=== PATIENT | male | born 1940 | race Caucasian/White ===

== ENCOUNTER 2016-10-07 06:10 | Day surgery (SDC) | payer OTHER, BC ==
[2016-09-30 09:33] VITALS: BMI 31.9
[2016-10-07] MEDS: CYCLOPENTOLATE 2% OPHTH SOLN 2 ML BOTTLE ONE ×3 (07:05→07:15)
[2016-10-07] MEDS: TROPICAMIDE 1% OPHTH SOLN 15 ML BOTTLE ONE ×3 (07:05→07:15)
[2016-10-07] MEDS: PHENYLEPHRINE 2.5% OPHTH SOLN 15 ML BOTTLE ONE ×3 (07:05→07:15)
[2016-10-07] MEDS: CIPROFLOXACIN 0.3% EYE DROPS 5 ML BOTTLE ONE ×3 (07:05→07:15)
[2016-10-07] MEDS ORDERED: LIDOCAINE 1% P/F 10 MG/ML VIAL ONE (07:22)
[2016-10-07] MEDS ORDERED: LIDOCAINE HCL 2% JELLY 10 ML CARTRIDGE ONE (07:22)
[2016-10-07] MEDS ORDERED: CARBACHOL 0.01% INTRA-OCULAR 1.5 ML VIAL ONE (07:23)
[2016-10-07] MEDS ORDERED: NEO/POLYMYX B SULF/DEXAMETH OPHTHALMIC 5ML BOTTLE ONE (07:23)
[2016-10-07] MEDS ORDERED: BSS (NA/CA/MG/K) BALANCED SALT SOLUTION OPHTH SOLN 15 ML BOTTLE ONE (07:26)
[2016-10-07] MEDS ORDERED: MIDAZOLAM HCL 2 MG/2 ML SINGLE DOSE VIAL ONE ×2 (07:44→08:08)
[2016-10-07 08:51] VITALS: TEMP 98
[2016-10-07 09:37] VITALS: BP 136/74; PULSE 56
--- NOTE | 2016-10-07 09:41 | OP ---
DATE OF OPERATION: 10/07/2016 OPERATIVE PROCEDURE: Lens phacoemulsification with posterior chamber intraocular lens placement right eye. PREOPERATIVE DIAGNOSIS: Visually significant cataract of right eye. POSTOPERATIVE DIAGNOSIS: Visually significant cataract of right eye. SURGEON: Bernard Carrasquillo M.D. ANESTHESIA: MAC PROCEDURE: The patient was brought to the operating room and placed under monitored anesthesia care by Anesthesia. A drop of tetracaine was then placed over the right eye. The patient was then prepped and draped in the usual sterile manner. A speculum was then placed over the right eye. The eye was then well irrigated with copious amounts of BSS (balanced salt solution). The operating microscope was then moved into position. A paracentesis was performed using a 15 degree blade. At this point 0.5 mL of 1% preservative-free lidocaine was injected into the anterior chamber. Amvisc Plus was then injected into the anterior chamber. A clear corneal incision was then formed using a 2.2 mm keratome. A capsulorrhexis was then performed in a continuous circular fashion beginning with a cystotome and completed with Utrata forceps. Hydrodissection was then performed using BSS on a cannula. The phaco probe was then introduced through the corneal wound and the cataract was removed using the phaco chop technique. Approximately 3 seconds of absolute phaco time was used. The remaining cortex was then removed using irrigation and aspiration with an I/A probe. The capsule was then filled with regular Amvisc and the capsule was noted to be intact. A previously selected foldable posterior chamber intraocular lens was then injected into the capsule through the corneal wound using a lens injector. It was then dialed into position using a Sinskey hook. The Amvisc was then removed using irrigation and aspiration. Miostat was then injected through the paracentesis to constrict the pupil. The paracentesis and corneal wound were then hydrated and noted to be watertight. A drop of Maxitrol was then placed over the eye. The speculum was removed and clear shield was taped over the eye. The patient tolerated the procedure well and there were no surgical complications. The patient was asked to follow up in my office the next day. BERNARD CARRASQUILLO M.D. [id number]
== END 2016-10-07 09:35 | disposition home or self-care (01) ==
LOC: FASU 06:10
PROVIDERS: ATTEND Ophthalmology
PROC: 08RJ3JZ Replacement of Right Lens with Synthetic Substitute, Percutaneous Approach (ICD-10-PCS; principal; 2016-10-07 08:12)
DX: H26.8 Other specified cataract (principal)

== ENCOUNTER 2016-11-25 06:16 | Day surgery (SDC) | payer OTHER, BC ==
[2016-11-20 12:07] VITALS: BMI 31.7
[2016-11-25] MEDS: PHENYLEPHRINE 2.5% OPHTH SOLN 15 ML BOTTLE ONE ×3 (06:55→07:05)
[2016-11-25] MEDS: CIPROFLOXACIN 0.3% EYE DROPS 5 ML BOTTLE ONE ×3 (06:55→07:05)
[2016-11-25] MEDS: CYCLOPENTOLATE 2% OPHTH SOLN 2 ML BOTTLE ONE ×3 (06:55→07:05)
[2016-11-25] MEDS: TROPICAMIDE 1% OPHTH SOLN 15 ML BOTTLE ONE ×3 (06:55→07:05)
[2016-11-25] MEDS ORDERED: TETRACAINE 0.5% OPHTH SOLN 2 ML BOTTLE ONE (07:28)
[2016-11-25] MEDS ORDERED: LIDOCAINE HCL 2% JELLY 10 ML CARTRIDGE ONE (07:29)
[2016-11-25] MEDS ORDERED: BSS (NA/CA/MG/K) BALANCED SALT SOLUTION OPHTH SOLN 15 ML BOTTLE ONE (07:29)
[2016-11-25] MEDS ORDERED: CARBACHOL 0.01% INTRA-OCULAR 1.5 ML VIAL ONE (07:29)
[2016-11-25] MEDS ORDERED: MIDAZOLAM HCL 2 MG/2 ML SINGLE DOSE VIAL ONE (08:06)
[2016-11-25] MEDS ORDERED: ONDANSETRON 4 MG/2 ML VIAL ONE (08:34)
[2016-11-25] MEDS ORDERED: ACETAMINOPHEN 325 MG TABLET (FP) PO PRN (08:50)
[2016-11-25] MEDS ORDERED: oxyCODONE HCL 5 MG TABLET PO PRN (08:50)
--- NOTE | 2016-11-25 11:50 | OP ---
DATE OF OPERATION: 11/25/2016 OPERATIVE PROCEDURE: Lens Phacoemulsification with Posterior Chamber Intraocular Lens Placement Left Eye PREOPERATIVE DIAGNOSIS: Visually Significant Cataract of Left Eye POSTOPERATIVE DIAGNOSIS: Visually Significant Cataract of Left Eye SURGEON: Bernard Carrasquillo M.D. ANESTHESIA: MAC ANESTHESIOLOGIST: PROCEDURE: The patient was brought to the operating room and placed under monitored anesthesia care by Anesthesia. A drop of Tetracaine was then placed over the left eye. The patient was then prepped and draped in the usual sterile manner. A speculum was then placed over the left eye. The eye was then well irrigated with copious amounts of BSS (balanced salt solution). The operating microscope was then moved into position. A paracentesis was performed using a 15 degree blade. At this point 0.5 mL of 1% preservative-free lidocaine was injected into the anterior chamber. Amvisc plus was then injected into the anterior chamber. A clear corneal incision was then formed using a 2.2 mm keratome. A capsulorrhexis was then performed in a continuous circular fashion beginning with a cystotome, completed with an Utratas forceps. Hydrodissection was then performed using BSS on a cannula. The phaco probe was then introduced through the corneal wound and the cataract was removed using the phaco chop technique. Approximately 3 seconds of absolute phaco time was used. The remaining cortex was then removed using irrigation and aspiration with an I/A probe. The capsule was then filled with regular Amvisc and the capsule was noted to be intact. A previously selected foldable posterior chamber intraocular lens was then injected into the capsule through the corneal wound using a lens injector. It was then dialed into position using a Sinskey hook. The Amvisc was then removed using irrigation and aspiration. Miostat was then injected through the paracentesis to constrict the pupil. The paracentesis and corneal wound were then hydrated and noted to be water tight. A drop of Maxitrol was then placed over the eye. The speculum was removed and clear shield was taped over the eye. The patient tolerated the procedure well and there were no surgical complications. The patient was asked to follow up in my office the next day. BERNARD CARRASQUILLO M.D. [id number]/[id number]
[2016-11-25 12:52] VITALS: TEMP 98.2
[2016-11-25 12:55] VITALS: BP 128/74; PULSE 58
== END 2016-11-25 09:25 | disposition home or self-care (01) ==
LOC: FASU 06:16
PROVIDERS: ATTEND Ophthalmology
PROC: 08RK3JZ Replacement of Left Lens with Synthetic Substitute, Percutaneous Approach (ICD-10-PCS; principal; 2016-11-25 08:31)
DX: H26.8 Other specified cataract (principal)

== ENCOUNTER 2017-11-06 10:25 | Emergency (ER) | payer OTHER, BC ==
--- NOTE | 2017-11-06 10:34 | PDOC ---
History of Present Illness - General Chief Complaint: Respiratory Stated Complaint: COUGH Time Seen by Provider: 11/06/17 10:33 - History of Present Illness Initial Comments: 11/06/17 11:11 Chief complaint: Cough History of present illness: Patient being treated by primary physician with moxifloxacin for respiratory illness. On antibiotics since Wednesday. Transient improvement, but cough is worse with difficulty sleeping. Review of systems: No fever, chest pain, shortness of breath, abdominal pain, nausea, vomiting, diarrhea, visual or focal neurologic symptoms, unsteadiness of gait. Remainder systems reviewed and found to be negative Past medical history: Multiple myeloma, chemotherapy including dexamethasone 4 mg weekly. Elevated cholesterol. Social/family history: No smoking alcohol or nonprescription drugs. Active and without disability. Stable family. No family history that is contributory Physical exam: Alert oriented well-developed well-nourished no acute distress cheerful and cooperative Afebrile, vital signs normal including respiratory rate of 18 and unlabored, O2 saturation 100% room air HEENT clear Neck supple without bruit mass or nodes Chest clear to P&A, with full breath sounds throughout bilaterally. No wheezes rales or rhonchi CV regular without murmur rub or gallop pulses full and symmetric no JVD or edema no bruits Abdomen soft nontender without mass or organomegaly Extremities no CCE Skin clear, no rash except for mild facial rosacea, adequate turgor and wet mucous membranes Neurological no deficits Impression: Probable post-bronchitis inflammation, rule out pneumonia Plan: X-ray and further management depending on results Past History - Past Medical History Allergies/Adverse Reactions: Allergies Allergy/AdvReac Type Severity Reaction Status Date / Time No Known Drug Allergies Allergy Verified 11/06/17 10:26 Home Medications: Ambulatory Orders Allopurinol 300 mg PO DAILY 09/30/16 Aspirin [ASA -] 325 mg PO DAILY 09/30/16 Cholecalciferol (Vitamin D3) [Vitamin D3] 2,000 unit PO DAILY 09/30/16 Dexamethasone [Decadron -] 4 mg PO WEEKLY 09/30/16 Hydrochlorothiazide [Hctz -] 12.5 mg PO DAILY 09/30/16 Ixazomib Citrate [Ninlaro] 4 mg PO ASDIR 09/30/16 Lenalidomide [Revlimid] 10 mg PO ASDIR 09/30/16 Metoprolol Succinate [Toprol XL -] 25 mg PO DAILY 09/30/16 Multivit-Min/FA/Lycopen/Lutein [Centrum Silver Tablet] 1 each PO DAILY 09/30/16 Rosuvastatin Calcium [Crestor] 5 mg PO HS 09/30/16 Ubidecarenone/Vit E Acet [Co Q-10 100 mg Softgel] 1 each PO DAILY 09/30/16 Valacyclovir HCl [Valtrex -] 500 mg PO DAILY 09/30/16 Ramipril 5 mg PO DAILY 11/20/16 Guaifenesin AC [Robitussin-AC] 1 - 2 tsp PO Q4HWA PRN #120 ml MDD 8 11/06/17 Hydrochlorothiazide [Hctz -] 12.5 mg PO DAILY 11/06/17 Ranitidine HCl [Zantac] 150 mg PO DAILY 11/06/17 Anemia: Yes (DUE TO CHEMO) Asthma: No Cancer: Yes (MULTIPLE MYELOMA) Cardiac Disorders: No (BICUSPID AORTA,BEING FOLLOWED) CVA: No COPD: No CHF: No Dementia: No Diabetes: No GI Disorders: Yes (GERD) Disorders: No HTN: Yes Hypercholesterolemia: Yes Liver Disease: No Seizures: No Thyroid Disease: No - Surgical History Abdominal Surgery: Yes (BILATERAL INGUINAL HERNIA REPAIR) Appendectomy: Yes Cardiac Surgery: No Cholecystectomy: No Lung Surgery: No Neurologic Surgery: No Orthopedic Surgery: Yes (2007 LEFT SHOULDER SX) - Suicide/Smoking/Psychosocial Hx Smoking History: Never smoked Have you smoked in the past 12 months: No Number of Cigarettes Smoked Daily: 0 Hx Alcohol Use: No Drug/Substance Use Hx: No (nn) Substance Use Type: None Hx Substance Use Treatment: No Medical Decision Making - Medical Decision Making 11/06/17 11:14 X-ray shows no acute infiltrate, congestion, effusions, or other consolidations. In view of the patient's normal respiratory rate, adequate O2 saturation, and mild symptoms, instructed to continue antibiotics until finished, utilize prescribed cough suppressant as needed, and recheck if symptoms worsen. Patient discharged fully ambulatory and in no distress respiratory or otherwise with his to follow-up as directed *DC/Admit/Observation/Transfer Diagnosis at time of Disposition: Viral bronchitis - Discharge Dispostion Disposition: HOME Condition at time of disposition: Stable Admit: No - Prescriptions Prescriptions: Guaifenesin AC [Robitussin-AC] 1 - 2 tsp PO Q4HWA PRN #120 ml MDD 8 PRN Reason: Cough - Referrals Referrals: Bernie Drake MD [Primary Care Provider] - 3 days - Patient Instructions Printed Discharge Instructions: DI for Acute Bronchitis Additional Instructions: Rest, fluids, finish prescribed antibiotics. Cough syrup for congestion and comfort. Return to ER or see primary physician if condition worsens, especially if there is fever, or increasing shortness of breath. - Post Discharge Activity
[2017-11-06 10:36] VITALS: BP 145/67; PULSE 74; TEMP 98.1; BMI 30.7
== END 2017-11-06 11:10 | disposition home or self-care (01) ==
LOC: FER 10:25
DX: J20.9 Acute bronchitis, unspecified (principal); B97.89 Other viral agents as the cause of diseases classified elsewhere; C90.00 Multiple myeloma not having achieved remission; Z92.21 Personal history of antineoplastic chemotherapy; E78.00 Pure hypercholesterolemia, unspecified; D64.81 Anemia due to antineoplastic chemotherapy; Q23.1 Congenital insufficiency of aortic valve; K21.9 Gastro-esophageal reflux disease without esophagitis; I10 Essential (primary) hypertension
CPT/HCPCS: 71046-TC-FY; 99283-25

== ENCOUNTER 2019-02-28 07:04 | Day surgery (SDC) | payer OTHER, BC ==
[2019-02-28] MEDS ORDERED: RANITIDINE IVPB ONE ×2 (10:00→11:45)
[2019-02-28] MEDS ORDERED: [UNRECOGNIZED DRUG - OTHER] IVPB ONE (10:00)
[2019-02-28] MEDS ORDERED: ACETAMINOPHEN 325 MG TABLET (FP) PO ONE (10:00)
[2019-02-28] MEDS ORDERED: DEXAMETHASONE SODIUM PHOSPHATE IVPB ONE ×2 (10:00→11:45)
[2019-02-28 10:04] LABS: BASO % 1.7 % (0-2.0); EOS % 0.1 % (0-4.5); HEMATOCRIT 39.6 % (35.4-49); HEMOGLOBIN 13.6 GM/dL (11.7-16.9); MCH 35.8 pg (25.7-33.7); MCHC 34.3 g/dl (32.0-35.9); MEAN CELL VOLUME 104.4 fl (80-96); MEAN PLT VOLUME 7.8 fl (7.5-11.1); MONO % 6.1 % (3.8-10.2); NEUT % 79.1 % (42.8-82.8); PLATELET COUNT 106 K/MM3 (134-434); RBC 3.79 M/mm3 (4.00-5.60); WHITE BLOOD COUNT 4.2 K/mm3 (4.0-10.0)
[2019-02-28] MEDS ORDERED: ELOTUZUMAB IVPB ONE (10:30)
[2019-02-28] MEDS ORDERED: SODIUM CHLORIDE IVPB ONE (10:30)
[2019-02-28 10:31] LABS: BILIRUBIN,DIRECT 0.3 mg/dL (0.0-0.2); BILIRUBIN,TOTAL 0.8 mg/dL (0.2-1); CALCIUM 9.1 mg/dL (8.5-10.1); CREATININE 1.3 mg/dL (0.55-1.3); MAGNESIUM 2.2 mg/dL (1.8-2.4); TOT PROT 6.4 g/dl (6.4-8.2)
[2019-02-28] MEDS ORDERED: [UNRECOGNIZED DRUG - OTHER] IVPB ONE (11:45)
[2019-02-28 18:52] VITALS: TEMP 97.3
[2019-02-28 19:07] VITALS: BP 138/63; PULSE 69
[2019-03-01 14:08] LABS: FREE KAPPA,SERUM 34.8 mg/L (3.3-19.4)
== END 2019-02-28 19:07 | disposition home or self-care (01) ==
LOC: JONCCHEMO 07:04 → J7W 11:55 → JONCCHEMO 19:07
PROVIDERS: ATTEND Internal Medicine Hematology & Oncology
DX: Z51.11 Encounter for antineoplastic chemotherapy (principal); C90.00 Multiple myeloma not having achieved remission
CPT/HCPCS: 36415; 80048; 80076; 82784; 83735; 83883; 85025; 86160; 86162; 86850; 86900; 86901; 96367; 96375; 96413; 96415; J9176

== ENCOUNTER 2019-03-07 05:55 | Day surgery (SDC) | payer OTHER, BC ==
[2019-03-07 08:46] LABS: BASO % 0.4 % (0-2.0); EOS % 0.1 % (0-4.5); HEMOGLOBIN 13.8 GM/dL (11.7-16.9); LYMPH % 6.7 % (8-40); MCH 35.9 pg (25.7-33.7); MCHC 34.6 g/dl (32.0-35.9); MEAN CELL VOLUME 103.7 fl (80-96); MEAN PLT VOLUME 7.7 fl (7.5-11.1); MONO % 3.3 % (3.8-10.2); NEUT % 89.5 % (42.8-82.8); PLATELET COUNT 112 K/MM3 (134-434); RBC 3.85 M/mm3 (4.00-5.60); WHITE BLOOD COUNT 4.7 K/mm3 (4.0-10.0)
[2019-03-07 09:06] LABS: ALBUMIN 3.9 g/dl (3.4-5.0); BILIRUBIN,DIRECT 0.3 mg/dL (0.0-0.2); BILIRUBIN,TOTAL 0.9 mg/dL (0.2-1); CALCIUM 8.8 mg/dL (8.5-10.1); CREATININE 1.3 mg/dL (0.55-1.3); MAGNESIUM 2.1 mg/dL (1.8-2.4); POTASSIUM 4.3 mmol/L (3.5-5.1); TOT PROT 6.4 g/dl (6.4-8.2); URIC ACID 5.4 mg/dL (2.6-7.2)
[2019-03-07] MEDS ORDERED: ACETAMINOPHEN 325 MG TABLET (FP) PO ONE (10:00)
[2019-03-07] MEDS ORDERED: [UNRECOGNIZED DRUG - OTHER] IVPB ONE (10:00)
[2019-03-07] MEDS ORDERED: DEXAMETHASONE SODIUM PHOSPHATE IVPB ONE (10:00)
[2019-03-07] MEDS ORDERED: DIPHENHYDRAMINE IVPB ONE (10:00)
[2019-03-07] MEDS ORDERED: INSULIN (NOVOLOG) ASPART 100 UNITS/ML 10ML VIAL SQ ONE (10:15)
[2019-03-07] MEDS ORDERED: ELOTUZUMAB IVPB ONE (10:30)
[2019-03-07] MEDS ORDERED: SODIUM CHLORIDE IVPB ONE (10:30)
[2019-03-07] MEDS ORDERED: Insulin (LOG) Aspart 100 UNITS/ML VIAL SQ ONE (14:05)
[2019-03-07 15:59] VITALS: BP 126/53; PULSE 71; TEMP 98.2
== END 2019-03-07 14:00 | disposition home or self-care (01) ==
LOC: JONCCHEMO 05:55 → J7W 10:13 → JONCCHEMO 14:00
PROVIDERS: ATTEND Internal Medicine Hematology & Oncology
DX: Z51.11 Encounter for antineoplastic chemotherapy (principal); C90.00 Multiple myeloma not having achieved remission
CPT/HCPCS: 36415; 80048; 80076; 82962; 83615; 83735; 84550; 85025; 96367; 96375; 96413; 96415; J9176

== ENCOUNTER 2019-03-14 07:47 | Day surgery (SDC) | payer OTHER, BC ==
[2019-03-14 08:31] LABS: BASO % 1.3 % (0-2.0); HEMATOCRIT 36.9 % (35.4-49); HEMOGLOBIN 12.8 GM/dL (11.7-16.9); LYMPH % 14.8 % (8-40); MCH 35.9 pg (25.7-33.7); MCHC 34.7 g/dl (32.0-35.9); MEAN CELL VOLUME 103.6 fl (80-96); MEAN PLT VOLUME 7.2 fl (7.5-11.1); MONO % 12.8 % (3.8-10.2); NEUT % 66.1 % (42.8-82.8); PLATELET COUNT 72 K/MM3 (134-434); RBC 3.56 M/mm3 (4.00-5.60); RDW 15.2 % (11.9-15.9); WHITE BLOOD COUNT 2.5 K/mm3 (4.0-10.0)
[2019-03-14 09:05] LABS: ALBUMIN 3.6 g/dl (3.4-5.0); BILIRUBIN,DIRECT 0.2 mg/dL (0.0-0.2); BILIRUBIN,TOTAL 1.3 mg/dL (0.2-1); BLOOD UREA NITROGEN 17.9 mg/dL (7-18); CALCIUM 8.4 mg/dL (8.5-10.1); CREATININE 1.1 mg/dL (0.55-1.3); MAGNESIUM 2.1 mg/dL (1.8-2.4); POTASSIUM 3.7 mmol/L (3.5-5.1); TOT PROT 5.7 g/dl (6.4-8.2)
[2019-03-14] MEDS ORDERED: INSULIN SLIDING SCALE (NOVOLOG) 1 VIAL SQ PRN (09:16)
[2019-03-14] MEDS ORDERED: ACETAMINOPHEN 325 MG TABLET (FP) PO ONE (09:30)
[2019-03-14] MEDS ORDERED: DIPHENHYDRAMINE IVPB ONE (09:30)
[2019-03-14] MEDS ORDERED: [UNRECOGNIZED DRUG - OTHER] IVPB ONE (09:30)
[2019-03-14] MEDS ORDERED: DEXAMETHASONE SODIUM PHOSPHATE IVPB ONE (09:30)
[2019-03-14] MEDS ORDERED: ELOTUZUMAB IV ONE (10:00)
[2019-03-14] MEDS ORDERED: SODIUM CHLORIDE IV ONE (10:00)
[2019-03-14] MEDS ORDERED: SODIUM CHLORIDE 1,000 ML IV ONE (12:00)
[2019-03-14] MEDS ORDERED: methylPREDNISolone NA SUCC 125 MG/2 ML VIAL IVPUSH ONE ×2 (12:00→14:00)
[2019-03-14] MEDS ORDERED: FAMOTIDINE 20 MG/50 ML IVPB 20 MG/50 ML MG IVPB ONE (12:00)
[2019-03-14] MEDS ORDERED: SODIUM CHLORIDE 1,000 ML IV SCH (14:00)
[2019-03-14] MEDS ORDERED: EPINEPHrine 1:1,000 - 30 MG/30 ML VIAL SQ ONE (14:00)
[2019-03-14] MEDS ORDERED: SODIUM CHLORIDE 500 ML IV SCH (15:00)
[2019-03-14 16:46] VITALS: BP 148/72; PULSE 67; TEMP 98
== END 2019-03-14 15:15 | disposition home or self-care (01) ==
LOC: JONCCHEMO 07:47 → J7W 08:50 → JONCCHEMO 15:15
PROVIDERS: ATTEND Internal Medicine Hematology & Oncology
DX: Z51.11 Encounter for antineoplastic chemotherapy (principal); C90.00 Multiple myeloma not having achieved remission
CPT/HCPCS: 36415; 80048; 80076; 82962; 83615; 83735; 84550; 85025; 96367; 96375; 96413; J7030; J9176

== ENCOUNTER 2019-03-21 07:17 | Day surgery (SDC) | payer OTHER, BC | END 2019-03-21 16:00 | disposition home or self-care (01) | LOC: JONCCHEMO 07:17 → J7W 10:19 → JONCCHEMO 16:00 ==

== ENCOUNTER 2019-03-22 07:13 | Day surgery (SDC) | payer OTHER, BC ==
[2019-03-22] MEDS ORDERED: TBO-FILGRASTIM 480 MCG/0.8 ML DISP.SYRIN SQ ONE (15:15)
[2019-03-22 15:37] VITALS: BP 116/50; PULSE 52; TEMP 98.2
== END 2019-03-22 15:30 | disposition home or self-care (01) ==
LOC: JONCCHEMO 07:13 → J7W 14:15 → JONCCHEMO 15:30
PROVIDERS: ATTEND Internal Medicine Hematology & Oncology
PROC: 3E013GC Introduction of Other Therapeutic Substance into Subcutaneous Tissue, Percutaneous Approach (ICD-10-PCS; principal; 2019-03-22)
DX: C90.00 Multiple myeloma not having achieved remission (principal); D70.9 Neutropenia, unspecified; Z76.89 Persons encountering health services in other specified circumstances
CPT/HCPCS: 96372; J1447

== ENCOUNTER 2019-03-23 07:41 | Day surgery (SDC) | payer OTHER, BC ==
[2019-03-23] MEDS ORDERED: TBO-FILGRASTIM 480 MCG/0.8 ML DISP.SYRIN SQ ONE (08:45)
[2019-03-23 16:08] VITALS: BP 146/61; PULSE 66; TEMP 98.4
== END 2019-03-23 10:00 | disposition home or self-care (01) ==
LOC: JONCCHEMO 07:41 → J7W 09:50 → JONCCHEMO 10:00
PROVIDERS: ATTEND Internal Medicine Hematology & Oncology
PROC: 3E013GC Introduction of Other Therapeutic Substance into Subcutaneous Tissue, Percutaneous Approach (ICD-10-PCS; principal; 2019-03-23)
DX: C90.00 Multiple myeloma not having achieved remission (principal); D70.9 Neutropenia, unspecified; Z76.89 Persons encountering health services in other specified circumstances
CPT/HCPCS: 96372; J1447

== ENCOUNTER 2019-03-28 07:19 | Day surgery (SDC) | payer OTHER, BC ==
[2019-03-28 08:24] LABS: BASO % 0.7 % (0-2.0); EOS % 0.3 % (0-4.5); HEMATOCRIT 39.4 % (35.4-49); HEMOGLOBIN 13.5 GM/dL (11.7-16.9); LYMPH % 14.3 % (8-40); MCH 35.6 pg (25.7-33.7); MCHC 34.2 g/dl (32.0-35.9); MEAN CELL VOLUME 104.2 fl (80-96); MEAN PLT VOLUME 7.2 fl (7.5-11.1); MONO % 2.2 % (3.8-10.2); NEUT % 82.5 % (42.8-82.8); PLATELET COUNT 92 K/MM3 (134-434); RBC 3.78 M/mm3 (4.00-5.60); RDW 14.8 % (11.9-15.9)
[2019-03-28 08:28] LABS: WHITE BLOOD COUNT 1.9 K/mm3 (4.0-10.0)
[2019-03-28 08:57] LABS: ALBUMIN 3.9 g/dl (3.4-5.0); BILIRUBIN,DIRECT 0.2 mg/dL (0.0-0.2); BILIRUBIN,TOTAL 0.8 mg/dL (0.2-1); BLOOD UREA NITROGEN 19.8 mg/dL (7-18); CALCIUM 8.8 mg/dL (8.5-10.1); CREATININE 1.3 mg/dL (0.55-1.3); POTASSIUM 4.1 mmol/L (3.5-5.1); TOT PROT 6.3 g/dl (6.4-8.2); URIC ACID 5.6 mg/dL (2.6-7.2)
[2019-03-28] MEDS ORDERED: Insulin (LOG) Aspart 100 UNITS/ML VIAL SQ ONE ×2 (09:21→14:50)
[2019-03-28] MEDS ORDERED: DIPHENHYDRAMINE IVPB ONE (09:30)
[2019-03-28] MEDS ORDERED: DEXAMETHASONE SODIUM PHOSPHATE IVPB ONE (09:30)
[2019-03-28] MEDS ORDERED: ACETAMINOPHEN 325 MG TABLET (FP) PO ONE (09:30)
[2019-03-28] MEDS ORDERED: [UNRECOGNIZED DRUG - OTHER] IVPB ONE (09:30)
[2019-03-28] MEDS ORDERED: SODIUM CHLORIDE IVPB ONE (10:00)
[2019-03-28] MEDS ORDERED: ELOTUZUMAB IVPB ONE (10:00)
[2019-03-28 15:04] LABS: ANISOCYTOSIS 1+; MACROCYTOSIS 1+; OVALOCYTE 1+; PLATELET ESTIMATE DECREASED
[2019-03-28 16:26] VITALS: BP 137/64; PULSE 79; TEMP 98.3
[2019-03-29] MEDS ORDERED: TBO-FILGRASTIM 480 MCG/0.8 ML DISP.SYRIN SQ ONE (10:00)
[2019-03-30] MEDS ORDERED: TBO-FILGRASTIM 480 MCG/0.8 ML DISP.SYRIN SQ ONE (10:00)
== END 2019-03-28 15:00 | disposition home or self-care (01) ==
LOC: JONCCHEMO 07:19 → J7W 09:09 → JONCCHEMO 15:00
PROVIDERS: ATTEND Internal Medicine Hematology & Oncology
DX: Z51.11 Encounter for antineoplastic chemotherapy (principal); C90.00 Multiple myeloma not having achieved remission; D70.9 Neutropenia, unspecified
CPT/HCPCS: 36415; 80048; 80076; 82962; 83615; 83735; 84550; 85025; 96367; 96375; 96413; 96415; J9176

== ENCOUNTER 2019-03-29 10:05 | Day surgery (SDC) | payer OTHER, BC ==
[2019-03-29] MEDS ORDERED: TBO-FILGRASTIM 480 MCG/0.8 ML DISP.SYRIN SQ ONE (13:00)
[2019-03-29 18:12] VITALS: BP 137/61; PULSE 62; TEMP 98
== END 2019-03-29 14:40 | disposition home or self-care (01) ==
LOC: JONCNONCHE 10:05 → J7W 14:25 → JONCNONCHE 14:40
PROVIDERS: ATTEND Internal Medicine Hematology & Oncology
PROC: 3E013GC Introduction of Other Therapeutic Substance into Subcutaneous Tissue, Percutaneous Approach (ICD-10-PCS; principal; 2019-03-29)
DX: C90.00 Multiple myeloma not having achieved remission (principal); D70.9 Neutropenia, unspecified; Z76.89 Persons encountering health services in other specified circumstances
CPT/HCPCS: 96372; J1447

== ENCOUNTER 2019-03-30 07:02 | Day surgery (SDC) | payer OTHER, BC ==
[2019-03-30] MEDS ORDERED: TBO-FILGRASTIM 480 MCG/0.8 ML DISP.SYRIN SQ ONE (09:00)
[2019-03-30 12:26] VITALS: BP 157/67; PULSE 60; TEMP 98.1
== END 2019-03-30 10:30 | disposition home or self-care (01) ==
LOC: JONCNONCHE 07:02 → J7W 10:07 → JONCNONCHE 10:30
PROVIDERS: ATTEND Internal Medicine Hematology & Oncology
PROC: 3E033GC Introduction of Other Therapeutic Substance into Peripheral Vein, Percutaneous Approach (ICD-10-PCS; principal; 2019-03-30)
DX: C90.00 Multiple myeloma not having achieved remission (principal); Z76.89 Persons encountering health services in other specified circumstances
CPT/HCPCS: 96372; J1447

== ENCOUNTER 2019-04-04 07:11 | Day surgery (SDC) | payer OTHER, BC ==
[2019-04-04 08:32] LABS: BASO % 1.4 % (0-2.0); EOS % 4.2 % (0-4.5); LYMPH % 9.8 % (8-40); MCH 35.9 pg (25.7-33.7); MCHC 34.2 g/dl (32.0-35.9); MEAN CELL VOLUME 104.9 fl (80-96); MEAN PLT VOLUME 7.8 fl (7.5-11.1); MONO % 10.1 % (3.8-10.2); NEUT % 74.5 % (42.8-82.8); PLATELET COUNT 94 K/MM3 (134-434); RBC 3.63 M/mm3 (4.00-5.60); RDW 14.9 % (11.9-15.9); WHITE BLOOD COUNT 2.6 K/mm3 (4.0-10.0)
[2019-04-04 09:02] LABS: ALBUMIN 3.6 g/dl (3.4-5.0); BILIRUBIN,DIRECT 0.2 mg/dL (0.0-0.2); BILIRUBIN,TOTAL 0.7 mg/dL (0.2-1); CALCIUM 8.4 mg/dL (8.5-10.1); CREATININE 1.2 mg/dL (0.55-1.3); MAGNESIUM 2.2 mg/dL (1.8-2.4); POTASSIUM 3.5 mmol/L (3.5-5.1); TOT PROT 5.6 g/dl (6.4-8.2)
[2019-04-04] MEDS ORDERED: DIPHENHYDRAMINE IVPB ONE ×2 (09:30→10:15)
[2019-04-04] MEDS ORDERED: DEXAMETHASONE SODIUM PHOSPHATE IVPB ONE ×2 (09:30→10:15)
[2019-04-04] MEDS ORDERED: [UNRECOGNIZED DRUG - OTHER] IVPB ONE ×2 (09:30→10:15)
[2019-04-04] MEDS ORDERED: ACETAMINOPHEN 325 MG TABLET (FP) PO ONE ×2 (09:30)
[2019-04-04] MEDS ORDERED: SODIUM CHLORIDE IVPB ONE ×2 (10:00→10:30)
[2019-04-04] MEDS ORDERED: ELOTUZUMAB IVPB ONE ×2 (10:00→10:30)
[2019-04-04] MEDS ORDERED: INSULIN (NOVOLOG) ASPART 100 UNITS/ML 10ML VIAL SQ ONE ×2 (10:24→15:30)
[2019-04-04] MEDS ORDERED: ACETAMINOPHEN 325 MG TABLET (FP) ONE (11:36)
[2019-04-04 17:03] VITALS: BP 132/63; PULSE 76
[2019-04-04 17:07] VITALS: TEMP 98
== END 2019-04-04 15:45 | disposition home or self-care (01) ==
LOC: JONCCHEMO 07:11 → J7W 10:14 → JONCCHEMO 15:45
PROVIDERS: ATTEND Internal Medicine Hematology & Oncology
DX: Z51.11 Encounter for antineoplastic chemotherapy (principal); C90.00 Multiple myeloma not having achieved remission
CPT/HCPCS: 36415; 80048; 80076; 82962; 83735; 85025; 96367; 96375; 96413; 96415; J9176

== ENCOUNTER 2019-04-11 07:14 | Day surgery (SDC) | payer OTHER, BC ==
[2019-04-11 08:50] LABS: BASO % 0.5 % (0-2.0); EOS % 7.1 % (0-4.5); HEMATOCRIT 36.5 % (35.4-49); HEMOGLOBIN 12.3 GM/dL (11.7-16.9); LYMPH % 10.7 % (8-40); MCH 35.5 pg (25.7-33.7); MCHC 33.8 g/dl (32.0-35.9); MEAN CELL VOLUME 104.8 fl (80-96); MEAN PLT VOLUME 7.5 fl (7.5-11.1); MONO % 13.7 % (3.8-10.2); PLATELET COUNT 120 K/MM3 (134-434); RBC 3.48 M/mm3 (4.00-5.60); WHITE BLOOD COUNT 2.8 K/mm3 (4.0-10.0)
[2019-04-11 09:18] LABS: ALBUMIN 3.5 g/dl (3.4-5.0); BILIRUBIN,DIRECT 0.2 mg/dL (0.0-0.2); BILIRUBIN,TOTAL 0.7 mg/dL (0.2-1); BLOOD UREA NITROGEN 16.8 mg/dL (7-18); CALCIUM 8.6 mg/dL (8.5-10.1); CREATININE 1.1 mg/dL (0.55-1.3); POTASSIUM 3.8 mmol/L (3.5-5.1); TOT PROT 5.5 g/dl (6.4-8.2); URIC ACID 5.2 mg/dL (2.6-7.2)
[2019-04-11] MEDS ORDERED: DIPHENHYDRAMINE IVPB ONE (10:00)
[2019-04-11] MEDS ORDERED: [UNRECOGNIZED DRUG - OTHER] IVPB ONE (10:00)
[2019-04-11] MEDS ORDERED: ACETAMINOPHEN 325 MG TABLET (FP) PO ONE (10:00)
[2019-04-11] MEDS ORDERED: DEXAMETHASONE SODIUM PHOSPHATE IVPB ONE (10:00)
[2019-04-11] MEDS ORDERED: SODIUM CHLORIDE IVPB ONE (10:30)
[2019-04-11] MEDS ORDERED: ELOTUZUMAB IVPB ONE (10:30)
[2019-04-11 16:55] VITALS: BP 149/50; PULSE 64; TEMP 97.9
[2019-04-11] MEDS ORDERED: PORTA CATH FLUSH 10 ML IVPUSH ONE (16:55)
== END 2019-04-11 14:30 | disposition home or self-care (01) ==
LOC: JONCCHEMO 07:14 → J7W 09:27 → JONCCHEMO 14:30
PROVIDERS: ATTEND Internal Medicine Hematology & Oncology
PROC: 3E04305 Introduction of Other Antineoplastic into Central Vein, Percutaneous Approach (ICD-10-PCS; principal; 2019-04-11)
PROC: 3E043GC Introduction of Other Therapeutic Substance into Central Vein, Percutaneous Approach (ICD-10-PCS; 2019-04-11)
DX: Z51.11 Encounter for antineoplastic chemotherapy (principal); C90.00 Multiple myeloma not having achieved remission
CPT/HCPCS: 36415; 80048; 80053; 80076; 83615; 83735; 84550; 85025; 96367; 96375; 96413; 96415; J9176

== ENCOUNTER 2019-04-18 05:47 | Day surgery (SDC) | payer OTHER, BC | END 2019-04-18 14:00 | disposition home or self-care (01) | LOC: JONCCHEMO 05:47 → J7W 09:14 → JONCCHEMO 14:00 ==

== ENCOUNTER 2019-04-25 06:05 | Day surgery (SDC) | payer OTHER, BC ==
[2019-04-25 08:57] LABS: BASO % 1.6 % (0-2.0); EOS % 2.9 % (0-4.5); HEMATOCRIT 38.3 % (35.4-49); HEMOGLOBIN 13.1 GM/dL (11.7-16.9); LYMPH % 11.4 % (8-40); MCH 35.6 pg (25.7-33.7); MCHC 34.2 g/dl (32.0-35.9); MEAN CELL VOLUME 104.1 fl (80-96); MONO % 10.5 % (3.8-10.2); NEUT % 73.6 % (42.8-82.8); PLATELET COUNT 118 K/MM3 (134-434); RBC 3.68 M/mm3 (4.00-5.60); RDW 15.4 % (11.9-15.9); WHITE BLOOD COUNT 3.1 K/mm3 (4.0-10.0)
[2019-04-25 09:29] LABS: ALBUMIN 3.7 g/dl (3.4-5.0); BILIRUBIN,DIRECT 0.2 mg/dL (0.0-0.2); BILIRUBIN,TOTAL 0.7 mg/dL (0.2-1); BLOOD UREA NITROGEN 19.9 mg/dL (7-18); CALCIUM 8.9 mg/dL (8.5-10.1); CREATININE 1.2 mg/dL (0.55-1.3); MAGNESIUM 2.2 mg/dL (1.8-2.4); POTASSIUM 4.2 mmol/L (3.5-5.1); TOT PROT 5.9 g/dl (6.4-8.2); URIC ACID 5.3 mg/dL (2.6-7.2)
[2019-04-25] MEDS ORDERED: DEXAMETHASONE SODIUM PHOSPHATE IVPB ONE (10:00)
[2019-04-25] MEDS ORDERED: [UNRECOGNIZED DRUG - OTHER] IVPB ONE (10:00)
[2019-04-25] MEDS ORDERED: ACETAMINOPHEN 325 MG TABLET (FP) PO ONE (10:00)
[2019-04-25] MEDS ORDERED: DIPHENHYDRAMINE IVPB ONE (10:00)
[2019-04-25 10:21] VITALS: TEMP 98.8
[2019-04-25] MEDS ORDERED: DEXAMETHASONE SOD PHOSPHATE 10 MG/1 ML VIAL IVPB ONE (10:30)
[2019-04-25] MEDS ORDERED: SODIUM CHLORIDE IVPB ONE (10:30)
[2019-04-25] MEDS ORDERED: ELOTUZUMAB IVPB ONE (10:30)
[2019-04-25 16:12] VITALS: BP 133/82; PULSE 80
== END 2019-04-25 16:14 | disposition home or self-care (01) ==
LOC: JONCCHEMO 06:05 → J7W 09:43 → JONCCHEMO 16:14
PROVIDERS: ATTEND Internal Medicine Hematology & Oncology
DX: Z51.11 Encounter for antineoplastic chemotherapy (principal); C90.00 Multiple myeloma not having achieved remission
CPT/HCPCS: 36415; 80048; 80076; 82962; 83615; 83735; 84550; 85025; 96367; 96375; 96413; 96415; J9176

== ENCOUNTER 2019-05-22 06:53 | Day surgery (SDC) | payer OTHER, BC ==
[2019-05-22 09:18] LABS: BASO % 1.5 % (0-2.0); EOS % 3.4 % (0-4.5); HEMATOCRIT 38.1 % (35.4-49); HEMOGLOBIN 13.1 GM/dL (11.7-16.9); LYMPH % 11.4 % (8-40); MCH 35.6 pg (25.7-33.7); MCHC 34.4 g/dl (32.0-35.9); MEAN CELL VOLUME 103.5 fl (80-96); MEAN PLT VOLUME 7.7 fl (7.5-11.1); NEUT % 73.7 % (42.8-82.8); PLATELET COUNT 112 K/MM3 (134-434); RBC 3.68 M/mm3 (4.00-5.60); RDW 14.7 % (11.9-15.9); WHITE BLOOD COUNT 3.2 K/mm3 (4.0-10.0)
[2019-05-22] MEDS ORDERED: [UNRECOGNIZED DRUG - OTHER] IVPB ONE (09:30)
[2019-05-22] MEDS ORDERED: ACETAMINOPHEN 325 MG TABLET (FP) PO ONE (09:30)
[2019-05-22] MEDS ORDERED: DIPHENHYDRAMINE IVPB ONE (09:30)
[2019-05-22] MEDS ORDERED: DEXAMETHASONE SODIUM PHOSPHATE IVPB ONE (09:30)
[2019-05-22 09:51] LABS: ALBUMIN 3.7 g/dl (3.4-5.0); BILIRUBIN,TOTAL 0.7 mg/dL (0.2-1); BLOOD UREA NITROGEN 17.4 mg/dL (7-18); CALCIUM 8.6 mg/dL (8.5-10.1); CREATININE 1.2 mg/dL (0.55-1.3); MAGNESIUM 2.1 mg/dL (1.8-2.4); POTASSIUM 4.2 mmol/L (3.5-5.1); TOT PROT 5.8 g/dl (6.4-8.2); URIC ACID 5.3 mg/dL (2.6-7.2)
[2019-05-22] MEDS ORDERED: SODIUM CHLORIDE IV ONE (10:00)
[2019-05-22] MEDS ORDERED: ELOTUZUMAB IV ONE (10:00)
[2019-05-22] MEDS ORDERED: INSULIN SLIDING SCALE (NOVOLOG) 1 VIAL SQ SCH (12:15)
[2019-05-22 15:36] VITALS: PULSE 65; TEMP 97.6
[2019-05-22 15:38] VITALS: BP 142/74
== END 2019-05-22 15:00 | disposition home or self-care (01) ==
LOC: JONCCHEMO 06:53 → J7W 09:51 → JONCCHEMO 15:00
PROVIDERS: ATTEND Internal Medicine Hematology & Oncology
DX: Z51.11 Encounter for antineoplastic chemotherapy (principal); C90.00 Multiple myeloma not having achieved remission
CPT/HCPCS: 36415; 80053; 82962; 83615; 83735; 84550; 85025; 96367; 96375; 96413; 96415; J9176

== ENCOUNTER 2019-06-20 05:29 | Day surgery (SDC) | payer OTHER, BC ==
[2019-06-20 08:21] LABS: BASO % 1.1 % (0-2.0); EOS % 1.4 % (0-4.5); HEMATOCRIT 37.9 % (35.4-49); MCH 34.8 pg (25.7-33.7); MCHC 34.2 g/dl (32.0-35.9); MEAN CELL VOLUME 101.8 fl (80-96); MEAN PLT VOLUME 7.2 fl (7.5-11.1); MONO % 11.7 % (3.8-10.2); NEUT % 79.8 % (42.8-82.8); PLATELET COUNT 170 K/MM3 (134-434); RBC 3.72 M/mm3 (4.00-5.60); RDW 14.1 % (11.9-15.9); WHITE BLOOD COUNT 4.5 K/mm3 (4.0-10.0)
[2019-06-20 08:54] LABS: ALBUMIN 3.2 g/dl (3.4-5.0); BILIRUBIN,TOTAL 0.8 mg/dL (0.2-1); BLOOD UREA NITROGEN 17.5 mg/dL (7-18); CALCIUM 8.6 mg/dL (8.5-10.1); CREATININE 1.2 mg/dL (0.55-1.3); MAGNESIUM 2.2 mg/dL (1.8-2.4); POTASSIUM 3.9 mmol/L (3.5-5.1); TOT PROT 5.9 g/dl (6.4-8.2); URIC ACID 4.5 mg/dL (2.6-7.2)
[2019-06-20] MEDS ORDERED: Insulin (LOG) Aspart 100 UNITS/ML VIAL SQ ONE (09:15)
[2019-06-20] MEDS ORDERED: INSULIN (NOVOLOG) ASPART 100 UNITS/ML 10ML VIAL ONE (09:39)
[2019-06-20] MEDS ORDERED: ACETAMINOPHEN 325 MG TABLET (FP) PO ONE (10:00)
[2019-06-20] MEDS ORDERED: DIPHENHYDRAMINE IVPB ONE (10:00)
[2019-06-20] MEDS ORDERED: DEXAMETHASONE SODIUM PHOSPHATE IVPB ONE (10:00)
[2019-06-20] MEDS ORDERED: [UNRECOGNIZED DRUG - OTHER] IVPB ONE (10:00)
[2019-06-20] MEDS ORDERED: SODIUM CHLORIDE IV ONE (10:30)
[2019-06-20] MEDS ORDERED: ELOTUZUMAB IV ONE (10:30)
[2019-06-20 16:33] VITALS: BP 132/71; PULSE 74
[2019-06-20 16:38] VITALS: TEMP 97.7
== END 2019-06-20 12:15 | disposition home or self-care (01) ==
LOC: JONCCHEMO 05:29 → J7W 08:59 → JONCCHEMO 12:15
PROVIDERS: ATTEND Internal Medicine Hematology & Oncology
DX: Z51.11 Encounter for antineoplastic chemotherapy (principal); C90.00 Multiple myeloma not having achieved remission
CPT/HCPCS: 36415; 80053; 83615; 83735; 84550; 85025; 96367; 96413; J9176

== ENCOUNTER 2019-07-12 12:01 | Emergency (ER) | payer OTHER, BC ==
[2019-07-12 12:21] VITALS: BP 146/77; PULSE 81; TEMP 99.5; BMI 30.4
--- NOTE | 2019-07-12 12:23 | PDOC ---
History of Present Illness - General Chief Complaint: Pain Stated Complaint: SWELLING TO ANAL AREA Time Seen by Provider: 07/12/19 12:13 - History of Present Illness Initial Comments: 07/12/19 12:19 78 M with MM on chemo, presenting to ED with anal pain and fullness. Pt states that for the past 4 days, he has felt pressure in his anus. He felt a lump near his anus and thought that he had a hemorrhoid. He has been treating it with preparation H and sitz baths, with no relief. Pt states that today during a bowel movement, he felt something "pop", which led to substantial relief in his pain. Pt denies F/C. Denies abdominal pain. Past History - Past Medical History Allergies/Adverse Reactions: Allergies Allergy/AdvReac Type Severity Reaction Status Date / Time No Known Drug Allergies Allergy Verified 07/12/19 12:03 Home Medications: Ambulatory Orders Allopurinol 300 mg PO DAILY 07/12/19 Amlodipine Besylate 2.5 mg PO DAILY 07/12/19 Amoxicillin/Potassium Clav [Augmentin 875-125 Tablet] 1 each PO BID #10 tablet 07/12/19 Aspirin [ASA -] 162 mg PO DAILY 07/12/19 Dexamethasone 8 mg PO DAILY 07/12/19 Elotuzumab [Empliciti] 300 mg IV MONTHLY 07/12/19 Hydrochlorothiazide [Hctz -] 1 tab PO DAILY 07/12/19 Levocetirizine Dihydrochloride 5 mg PO DAILY 07/12/19 Metoprolol Succinate [Toprol Xl] 50 mg PO DAILY 07/12/19 Multivit-Min/FA/Lycopen/Lutein [Centrum Silver Tablet] 1 each PO DAILY 07/12/19 Omeprazole Magnesium [Prilosec Otc] 20 mg PO DAILY 07/12/19 Pomalidomide [Pomalyst] 4 mg PO DAILY 07/12/19 Rosuvastatin Calcium [Crestor] 5 mg PO DAILY 07/12/19 Valacyclovir HCl [Valtrex] 500 mg PO DAILY 07/12/19 Anemia: Yes (DUE TO CHEMO) Asthma: No Cancer: Yes (MULTIPLE MYELOMA) Cardiac Disorders: No (BICUSPID AORTA,BEING FOLLOWED) CVA: No COPD: No CHF: No Dementia: No Diabetes: No GI Disorders: Yes (GERD) Disorders: No HTN: Yes Hypercholesterolemia: Yes Liver Disease: No Seizures: No Thyroid Disease: No - Surgical History Abdominal Surgery: Yes (BILATERAL INGUINAL HERNIA REPAIR) Appendectomy: Yes Cardiac Surgery: No Cholecystectomy: No Lung Surgery: No Neurologic Surgery: No Orthopedic Surgery: Yes (2007 LEFT SHOULDER SX) - Psycho Social/Smoking Cessation Hx Smoking History: Never smoked Have you smoked in the past 12 months: No Number of Cigarettes Smoked Daily: 0 Hx Alcohol Use: No Drug/Substance Use Hx: No (nn) Substance Use Type: None Hx Substance Use Treatment: No Review of Systems - Review of Systems Comments:: 07/12/19 12:22 "GENERAL/CONSTITUTIONAL: No fever or chills. No weakness. HEAD, EYES, EARS, NOSE AND THROAT: No change in vision. No ear pain or discharge. No sore throat. CARDIOVASCULAR: No chest pain, no shortness of breath, no loss of consciousness RESPIRATORY: No cough, wheezing, or hemoptysis. GASTROINTESTINAL: + Anal pain, No nausea, vomiting, diarrhea or constipation. GENITOURINARY: No dysuria, frequency, or change in urination. MUSCULOSKELETAL: No joint or muscle swelling or pain. No neck or back pain. SKIN: No rash NEUROLOGIC: No vertigo, no change in strength/sensation. ENDOCRINE: No increased thirst. No abnormal weight change. HEMATOLOGIC/LYMPHATIC: No anemia, easy bleeding, or history of blood clots. ALLERGIC/IMMUNOLOGIC: No hives or skin allergy. *Physical Exam - Physical Exam 07/12/19 12:23 "GENERAL: Awake, alert, and fully oriented, in no acute distress. HEAD: No signs of trauma EYES: PERRLA, EOMI, sclera anicteric, conjunctiva clear ENT: Auricles normal inspection, hearing grossly normal, nares patent, oropharynx clear without exudates. Moist mucosa NECK: Nontender, no stepoffs, Normal ROM, supple, no lymphadenopathy, JVD, or masses LUNGS: Breath sounds equal, clear to auscultation bilaterally. No wheezes, and no crackles HEART: Regular rate and rhythm, normal S1 and S2, no murmurs, rubs or gallops ABDOMEN: Soft, nontender, normoactive bowel sounds. No guarding, no rebound. No masses EXTREMITIES: Normal range of motion, no edema. No clubbing or cyanosis. No cords, erythema, or tenderness NEUROLOGICAL: Cranial nerves II through XII intact. 5/5 strength and sensation in all extremities, Normal speech, normal gait, normal cerebellar function SKIN: Warm, Dry, normal turgor, no rashes or lesions noted. RECTAL: + Perianal abscess, no hemorrhoids Procedures - Incision and Drainage I&D Site: Right: Perirectal Betadine cleansed: Yes Anesthesia: 1% Lidocaine Volume(ml): 2 Blade Size: 11 Attempts: 1 Plain Packing: No Complications: none Medical Decision Making - Medical Decision Making 07/12/19 12:23 78 M with perianal abscess. No h/o previous perianal abscess, low suspicion for fistula. - I&D performed with drainage of 3cc pus - Abx - Wound culture Pt is well appearing, with normal vitals. Clinically stable for DC at this time. I discussed the physical exam findings, ancillary test results and final diagnoses with the patient. I answered all of the patient's questions. The patient was satisfied with the care received and felt comfortable with the discharge plan and treatment plan. The patient agrees to follow up with the primary care physician within 24-72 hours. Discharge - Discharge Information Problems reviewed: Yes Clinical Impression/Diagnosis: Perianal abscess Condition: Stable Disposition: HOME - Additional Discharge Information Prescriptions: Amoxicillin/Potassium Clav [Augmentin 875-125 Tablet] 1 each PO BID #10 tablet - Follow up/Referral Referrals: Bernie Drake MD [Primary Care Provider] - Haseeb Hills MD [Staff Physician] - - Patient Discharge Instructions Patient Printed Discharge Instructions: DI for Anal Abscess Additional Instructions: You have a kurtis-anal abscess that was drained in the ER today. Take the antibiotics as prescribed to treat the infection. If you experience worsening pain, swelling, fevers, or any other concerning symptoms, return to the ER immediately. Otherwise, follow up with your primary doctor within 48 hours for re-evaluation. If the abscess does not completely resolve within 1 week, call the number provided to make an appointment with a surgeon. - Post Discharge Activity
== END 2019-07-12 12:54 | disposition home or self-care (01) ==
LOC: FER 12:01
PROC: 0D9QXZZ Drainage of Anus, External Approach (ICD-10-PCS; principal; 2019-07-12)
DX: K61.1 Rectal abscess (principal); K21.9 Gastro-esophageal reflux disease without esophagitis; I51.9 Heart disease, unspecified; I10 Essential (primary) hypertension; E78.00 Pure hypercholesterolemia, unspecified; C90.00 Multiple myeloma not having achieved remission; D64.9 Anemia, unspecified
CPT/HCPCS: 87070; 87076; 87077; 87186; 87205; 99282-25

== ENCOUNTER 2019-07-18 07:16 | Day surgery (SDC) | payer OTHER, BC ==
[2019-07-18 08:38] LABS: BASO % 1.8 % (0-2.0); EOS % 4.3 % (0-4.5); HEMATOCRIT 36.9 % (35.4-49); HEMOGLOBIN 12.6 GM/dL (11.7-16.9); LYMPH % 16.3 % (8-40); MCH 34.1 pg (25.7-33.7); MCHC 34.1 g/dl (32.0-35.9); MEAN CELL VOLUME 100.1 fl (80-96); MEAN PLT VOLUME 7.2 fl (7.5-11.1); MONO % 9.8 % (3.8-10.2); NEUT % 67.8 % (42.8-82.8); PLATELET COUNT 169 K/MM3 (134-434); RBC 3.69 M/mm3 (4.00-5.60); RDW 14.7 % (11.9-15.9); WHITE BLOOD COUNT 2.6 K/mm3 (4.0-10.0)
[2019-07-18 09:11] LABS: ALBUMIN 3.4 g/dl (3.4-5.0); BILIRUBIN,TOTAL 0.5 mg/dL (0.2-1); CALCIUM 8.8 mg/dL (8.5-10.1); CREATININE 1.1 mg/dL (0.55-1.3); MAGNESIUM 2.2 mg/dL (1.8-2.4); POTASSIUM 4.3 mmol/L (3.5-5.1); TOT PROT 5.9 g/dl (6.4-8.2); URIC ACID 4.2 mg/dL (2.6-7.2)
[2019-07-18] MEDS ORDERED: [UNRECOGNIZED DRUG - OTHER] IVPB ONE (09:30)
[2019-07-18] MEDS ORDERED: DEXAMETHASONE SODIUM PHOSPHATE IVPB ONE (09:30)
[2019-07-18] MEDS ORDERED: DIPHENHYDRAMINE IVPB ONE (09:30)
[2019-07-18] MEDS ORDERED: ACETAMINOPHEN 325 MG TABLET (FP) PO ONE (09:30)
[2019-07-18] MEDS ORDERED: ELOTUZUMAB IV ONE (10:00)
[2019-07-18] MEDS ORDERED: SODIUM CHLORIDE IV ONE (10:00)
[2019-07-18] MEDS ORDERED: ACETAMINOPHEN 325 MG TABLET (FP) ONE (11:25)
[2019-07-18 14:31] VITALS: TEMP 97.7
[2019-07-18 14:32] VITALS: BP 140/80; PULSE 74
== END 2019-07-18 13:30 | disposition home or self-care (01) ==
LOC: JONCCHEMO 07:16 → J7W 09:39 → JONCCHEMO 13:30
PROVIDERS: ATTEND Internal Medicine Hematology & Oncology
DX: Z51.11 Encounter for antineoplastic chemotherapy (principal); C90.00 Multiple myeloma not having achieved remission
CPT/HCPCS: 36415; 80053; 83615; 83735; 84550; 85025; 96367; 96413; 96415; J9176

== ENCOUNTER 2019-08-15 05:54 | Day surgery (SDC) | payer OTHER, BC ==
[2019-08-15 08:28] LABS: BASO % 1.5 % (0-2.0); EOS % 4.7 % (0-4.5); HEMATOCRIT 39.4 % (35.4-49); HEMOGLOBIN 13.1 GM/dL (11.7-16.9); LYMPH % 15.1 % (8-40); MCH 33.5 pg (25.7-33.7); MCHC 33.3 g/dl (32.0-35.9); MEAN CELL VOLUME 100.7 fl (80-96); MEAN PLT VOLUME 7.5 fl (7.5-11.1); MONO % 12.8 % (3.8-10.2); NEUT % 65.9 % (42.8-82.8); PLATELET COUNT 135 K/MM3 (134-434); RBC 3.92 M/mm3 (4.00-5.60); RDW 15.6 % (11.9-15.9); WHITE BLOOD COUNT 3.1 K/mm3 (4.0-10.0)
[2019-08-15 08:57] LABS: ALBUMIN 3.7 g/dl (3.4-5.0); BILIRUBIN,TOTAL 0.8 mg/dL (0.2-1); BLOOD UREA NITROGEN 16.7 mg/dL (7-18); CALCIUM 8.7 mg/dL (8.5-10.1); CREATININE 1.1 mg/dL (0.55-1.3); MAGNESIUM 2.2 mg/dL (1.8-2.4); POTASSIUM 4.3 mmol/L (3.5-5.1); URIC ACID 5.3 mg/dL (2.6-7.2)
[2019-08-15] MEDS ORDERED: DIPHENHYDRAMINE IVPB ONE (10:00)
[2019-08-15] MEDS ORDERED: ACETAMINOPHEN 325 MG TABLET (FP) PO ONE (10:00)
[2019-08-15] MEDS ORDERED: DEXAMETHASONE SODIUM PHOSPHATE IVPB ONE (10:00)
[2019-08-15] MEDS ORDERED: [UNRECOGNIZED DRUG - OTHER] IVPB ONE (10:00)
[2019-08-15] MEDS ORDERED: ELOTUZUMAB IV ONE (10:30)
[2019-08-15] MEDS ORDERED: SODIUM CHLORIDE IV ONE (10:30)
[2019-08-15] MEDS ORDERED: INSULIN (NOVOLOG) ASPART 100 UNITS/ML 10ML VIAL ONE (12:39)
[2019-08-15] MEDS ORDERED: INSULIN (NOVOLOG) ASPART 100 UNITS/ML 10ML VIAL SQ ONE (13:00)
[2019-08-15 14:57] VITALS: BP 141/65; PULSE 69; TEMP 98
== END 2019-08-15 12:45 | disposition home or self-care (01) ==
LOC: JONCCHEMO 05:54 → J7W 09:11 → JONCCHEMO 12:45
PROVIDERS: ATTEND Internal Medicine Hematology & Oncology
DX: Z51.11 Encounter for antineoplastic chemotherapy (principal); C90.00 Multiple myeloma not having achieved remission
CPT/HCPCS: 36415; 80053; 82962; 83615; 83735; 84550; 85025; 96367; 96413; J9176

== ENCOUNTER 2019-09-12 06:00 | Day surgery (SDC) | payer OTHER, BC ==
[2019-09-12 08:31] LABS: BASO % 1.5 % (0-2.0); EOS % 4.1 % (0-4.5); HEMATOCRIT 38.7 % (35.4-49); MCH 33.1 pg (25.7-33.7); MCHC 33.6 g/dl (32.0-35.9); MEAN CELL VOLUME 98.7 fl (80-96); MEAN PLT VOLUME 7.5 fl (7.5-11.1); MONO % 10.2 % (3.8-10.2); NEUT % 69.2 % (42.8-82.8); PLATELET COUNT 128 K/MM3 (134-434); RBC 3.92 M/mm3 (4.00-5.60); RDW 16.1 % (11.9-15.9); WHITE BLOOD COUNT 3.1 K/mm3 (4.0-10.0)
[2019-09-12 08:58] LABS: ALBUMIN 3.5 g/dl (3.4-5.0); BILIRUBIN,TOTAL 0.7 mg/dL (0.2-1); BLOOD UREA NITROGEN 17.4 mg/dL (7-18); CALCIUM 8.4 mg/dL (8.5-10.1); CREATININE 1.2 mg/dL (0.55-1.3); TOT PROT 5.7 g/dl (6.4-8.2)
[2019-09-12] MEDS ORDERED: [UNRECOGNIZED DRUG - OTHER] IVPB ONE (09:30)
[2019-09-12] MEDS ORDERED: DEXAMETHASONE SODIUM PHOSPHATE IVPB ONE (09:30)
[2019-09-12] MEDS ORDERED: DIPHENHYDRAMINE IVPB ONE (09:30)
[2019-09-12] MEDS ORDERED: ACETAMINOPHEN 325 MG TABLET (FP) PO ONE (09:30)
[2019-09-12] MEDS ORDERED: SODIUM CHLORIDE IV ONE (10:00)
[2019-09-12] MEDS ORDERED: ELOTUZUMAB IV ONE (10:00)
[2019-09-12 10:03] VITALS: TEMP 97.7
[2019-09-12] MEDS ORDERED: INSULIN (NOVOLOG) ASPART 100 UNITS/ML 10ML VIAL ONE (13:45)
[2019-09-12] MEDS ORDERED: INSULIN (NOVOLOG) ASPART 100 UNITS/ML 10ML VIAL SQ ONE (14:30)
[2019-09-12 16:41] VITALS: BP 126/48; PULSE 74
== END 2019-09-12 14:05 | disposition home or self-care (01) ==
LOC: JONCCHEMO 06:00 → J7W 09:09 → JONCCHEMO 14:05
PROVIDERS: ATTEND Internal Medicine Hematology & Oncology
DX: Z51.11 Encounter for antineoplastic chemotherapy (principal); C90.00 Multiple myeloma not having achieved remission
CPT/HCPCS: 36415; 80053; 82962; 83735; 85025; 96413; 96417; J9176

== ENCOUNTER 2019-10-10 05:57 | Day surgery (SDC) | payer OTHER, BC ==
[2019-10-10 08:57] LABS: BASO % 1.4 % (0-2.0); EOS % 3.6 % (0-4.5); HEMATOCRIT 39.3 % (35.4-49); HEMOGLOBIN 13.2 GM/dL (11.7-16.9); LYMPH % 12.3 % (8-40); MCH 33.4 pg (25.7-33.7); MCHC 33.7 g/dl (32.0-35.9); MEAN CELL VOLUME 99.3 fl (80-96); MEAN PLT VOLUME 7.7 fl (7.5-11.1); MONO % 10.8 % (3.8-10.2); NEUT % 71.9 % (42.8-82.8); PLATELET COUNT 130 K/MM3 (134-434); RBC 3.96 M/mm3 (4.00-5.60); RDW 16.2 % (11.9-15.9); WHITE BLOOD COUNT 2.8 K/mm3 (4.0-10.0)
[2019-10-10 09:52] LABS: ALBUMIN 3.6 g/dl (3.4-5.0); BILIRUBIN,TOTAL 0.9 mg/dL (0.2-1); BLOOD UREA NITROGEN 19.3 mg/dL (7-18); CALCIUM 8.7 mg/dL (8.5-10.1); CREATININE 1.2 mg/dL (0.55-1.3); MAGNESIUM 2.2 mg/dL (1.8-2.4); POTASSIUM 4.2 mmol/L (3.5-5.1); TOT PROT 5.9 g/dl (6.4-8.2); URIC ACID 5.3 mg/dL (2.6-7.2)
[2019-10-10] MEDS ORDERED: ACETAMINOPHEN 325 MG TABLET (FP) PO ONE (10:00)
[2019-10-10] MEDS ORDERED: RANITIDINE IVPB ONE (10:00)
[2019-10-10] MEDS ORDERED: [UNRECOGNIZED DRUG - OTHER] IVPB ONE (10:00)
[2019-10-10] MEDS ORDERED: DEXAMETHASONE SODIUM PHOSPHATE IVPB ONE (10:00)
[2019-10-10] MEDS ORDERED: SODIUM CHLORIDE IV ONE (10:30)
[2019-10-10] MEDS ORDERED: ELOTUZUMAB IV ONE (10:30)
[2019-10-10] MEDS ORDERED: Insulin (LOG) Aspart 100 UNITS/ML VIAL SQ ONE (13:04)
[2019-10-10 16:05] VITALS: BP 128/67; PULSE 66
[2019-10-10 16:06] VITALS: TEMP 98.3
== END 2019-10-10 13:40 | disposition home or self-care (01) ==
LOC: JONCCHEMO 05:57 → J7W 09:14 → JONCCHEMO 13:40
PROVIDERS: ATTEND Nurse Practitioner Family
PROC: 3E03305 Introduction of Other Antineoplastic into Peripheral Vein, Percutaneous Approach (ICD-10-PCS; principal; 2019-10-10)
PROC: 3E033GC Introduction of Other Therapeutic Substance into Peripheral Vein, Percutaneous Approach (ICD-10-PCS; 2019-10-10)
DX: Z51.11 Encounter for antineoplastic chemotherapy (principal); C90.00 Multiple myeloma not having achieved remission; I10 Essential (primary) hypertension
CPT/HCPCS: 36415; 80053; 82962; 83615; 83735; 84550; 85025; 96367; 96413; 96415; J9176

== ENCOUNTER 2020-01-30 05:43 | Day surgery (SDC) | payer OTHER, BC ==
[2020-01-30] MEDS ORDERED: FAMOTIDINE 20 MG/50 ML IVPB 20 MG/50 ML MG IVPB ONE (10:00)
[2020-01-30] MEDS ORDERED: DEXAMETHASONE SODIUM PHOSPHATE 12 MG, DIPHENHYDRAMINE 50 MG in SODIUM CHLORIDE 100 ML IVPB ONE (10:00)
[2020-01-30] MEDS ORDERED: ACETAMINOPHEN 325 MG TABLET (FP) PO ONE (10:00)
[2020-01-30 10:25] LABS: BASO % 1.3 % (0-2.0); EOS % 0.9 % (0-4.5); HEMATOCRIT 41.9 % (35.4-49); LYMPH % 12.8 % (8-40); MCH 33.7 pg (25.7-33.7); MCHC 33.4 g/dl (32.0-35.9); MONO % 5.6 % (3.8-10.2); NEUT % 79.4 % (42.8-82.8); PLATELET COUNT 144 K/MM3 (134-434); RBC 4.15 M/mm3 (4.00-5.60); RDW 16.1 % (11.9-15.9); WHITE BLOOD COUNT 3.4 K/mm3 (4.0-10.0)
[2020-01-30] MEDS ORDERED: SODIUM CHLORIDE IV ONE (10:30)
[2020-01-30] MEDS ORDERED: ELOTUZUMAB IV ONE (10:30)
[2020-01-30 10:59] LABS: ALBUMIN 4.1 g/dl (3.4-5.0); BILIRUBIN,DIRECT 0.3 mg/dL (0.0-0.2); BILIRUBIN,TOTAL 0.9 mg/dL (0.2-1); CREATININE 1.2 mg/dL (0.55-1.3); MAGNESIUM 2.2 mg/dL (1.8-2.4); POTASSIUM 4.3 mmol/L (3.5-5.1); TOT PROT 6.3 g/dl (6.4-8.2); URIC ACID 4.9 mg/dL (2.6-7.2)
[2020-01-30 14:37] VITALS: PULSE 68; TEMP 97.7
[2020-01-30 14:59] VITALS: BP 152/72
== END 2020-01-30 14:30 | disposition home or self-care (01) ==
LOC: JONCCHEMO 05:43
PROVIDERS: ATTEND Nurse Practitioner Family
DX: Z51.11 Encounter for antineoplastic chemotherapy (principal); C90.00 Multiple myeloma not having achieved remission
CPT/HCPCS: 36415; 80048; 80076; 83615; 83735; 84550; 85025; 96367; 96413; J9176

== ENCOUNTER 2020-02-29 07:22 | Day surgery (SDC) | payer OTHER, BC ==
[2020-02-29] MEDS ORDERED: DEXAMETHASONE SODIUM PHOSPHATE IVPB ONE (09:30)
[2020-02-29] MEDS ORDERED: DIPHENHYDRAMINE IVPB ONE (09:30)
[2020-02-29] MEDS ORDERED: [UNRECOGNIZED DRUG - OTHER] IVPB ONE (09:30)
[2020-02-29] MEDS ORDERED: ACETAMINOPHEN 325 MG TABLET (FP) PO ONE (09:30)
[2020-02-29] MEDS ORDERED: ELOTUZUMAB IV ONE (10:00)
[2020-02-29] MEDS ORDERED: SODIUM CHLORIDE IV ONE (10:00)
[2020-02-29 10:45] LABS: BASO % 1.8 % (0-2.0); EOS % 1.6 % (0-4.5); HEMATOCRIT 42.2 % (35.4-49); HEMOGLOBIN 14.1 GM/dL (11.7-16.9); LYMPH % 12.5 % (8-40); MCH 33.3 pg (25.7-33.7); MCHC 33.3 g/dl (32.0-35.9); MEAN CELL VOLUME 99.9 fl (80-96); MEAN PLT VOLUME 7.8 fl (7.5-11.1); MONO % 5.5 % (3.8-10.2); NEUT % 78.6 % (42.8-82.8); PLATELET COUNT 166 K/MM3 (134-434); RBC 4.22 M/mm3 (4.00-5.60); WHITE BLOOD COUNT 3.4 K/mm3 (4.0-10.0)
[2020-02-29 11:22] LABS: BILIRUBIN,DIRECT 0.2 mg/dL (0.0-0.2); BILIRUBIN,TOTAL 0.8 mg/dL (0.2-1); BLOOD UREA NITROGEN 19.5 mg/dL (7-18); CALCIUM 9.2 mg/dL (8.5-10.1); CREATININE 1.1 mg/dL (0.55-1.3); MAGNESIUM 2.4 mg/dL (1.8-2.4); POTASSIUM 4.1 mmol/L (3.5-5.1); TOT PROT 6.4 g/dl (6.4-8.2); URIC ACID 5.1 mg/dL (2.6-7.2)
[2020-02-29 15:02] VITALS: TEMP 98.4
[2020-02-29 15:04] VITALS: BP 126/72; PULSE 83
[2020-03-01 17:07] LABS: FREE KAPPA,SERUM 22.7 mg/L (3.3-19.4)
[2020-03-02 05:07] LABS: FREE KAP CHN UR 14.85 mg/L (0.63-113.79); KAPPA LAMBDA RATIO URIN 8.95 (1.03-31.76)
== END 2020-02-29 15:05 | disposition home or self-care (01) ==
LOC: JONCCHEMO 07:22
PROVIDERS: ATTEND Internal Medicine Hematology & Oncology
DX: Z51.11 Encounter for antineoplastic chemotherapy (principal); C90.00 Multiple myeloma not having achieved remission
CPT/HCPCS: 36415; 80048; 80076; 83615; 83735; 83883; 84155; 84165; 84550; 85025; 96367; 96413; 96415; J9176

== ENCOUNTER 2020-04-24 07:11 | Day surgery (SDC) | payer OTHER, BC ==
[2020-04-24] MEDS ORDERED: DEXAMETHASONE SODIUM PHOSPHATE 12 MG, DIPHENHYDRAMINE 50 MG in SODIUM CHLORIDE 100 ML IVPB ONE (09:30)
[2020-04-24] MEDS ORDERED: ACETAMINOPHEN 325 MG TABLET (FP) PO ONE (09:30)
[2020-04-24] MEDS ORDERED: FAMOTIDINE 20 MG/50 ML IVPB 20 MG/50 ML MG IVPB ONE (09:30)
[2020-04-24] MEDS ORDERED: SODIUM CHLORIDE IV ONE (10:00)
[2020-04-24] MEDS ORDERED: ELOTUZUMAB IV ONE (10:00)
[2020-04-24 11:39] LABS: BASO % 1.3 % (0-2.0); EOS % 0.9 % (0-4.5); HEMOGLOBIN 14.8 GM/dL (11.7-16.9); LYMPH % 12.7 % (8-40); MCH 34.6 pg (25.7-33.7); MCHC 34.3 g/dl (32.0-35.9); MEAN CELL VOLUME 100.9 fl (80-96); MEAN PLT VOLUME 7.5 fl (7.5-11.1); MONO % 4.6 % (3.8-10.2); NEUT % 80.5 % (42.8-82.8); PLATELET COUNT 154 K/MM3 (134-434); RBC 4.26 M/mm3 (4.00-5.60); RDW 15.3 % (11.9-15.9); WHITE BLOOD COUNT 4.4 K/mm3 (4.0-10.0)
[2020-04-24 12:08] LABS: ALBUMIN 4.1 g/dl (3.4-5.0); BILIRUBIN,DIRECT 0.2 mg/dL (0.0-0.2); BLOOD UREA NITROGEN 19.3 mg/dL (7-18); CALCIUM 8.9 mg/dL (8.5-10.1); CREATININE 1.2 mg/dL (0.55-1.3); MAGNESIUM 2.2 mg/dL (1.8-2.4); POTASSIUM 4.2 mmol/L (3.5-5.1); TOT PROT 6.5 g/dl (6.4-8.2)
[2020-04-24 16:33] VITALS: TEMP 97.6
[2020-04-24 16:44] VITALS: BP 143/69; PULSE 72
== END 2020-04-24 15:51 | disposition home or self-care (01) ==
LOC: JONCCHEMO 07:11
PROVIDERS: ATTEND Internal Medicine Hematology & Oncology
DX: Z51.11 Encounter for antineoplastic chemotherapy (principal); C90.00 Multiple myeloma not having achieved remission
CPT/HCPCS: 36415; 80048; 80076; 83036; 83735; 85025; 96367; 96413; J9176

== ENCOUNTER 2020-05-22 06:46 | Day surgery (SDC) | payer OTHER, BC ==
[2020-05-22] MEDS ORDERED: DEXAMETHASONE SODIUM PHOSPHATE 12 MG, DIPHENHYDRAMINE 50 MG in SODIUM CHLORIDE 100 ML IVPB ONE (10:00)
[2020-05-22] MEDS ORDERED: FAMOTIDINE 20 MG/50 ML IVPB 20 MG/50 ML MG IVPB ONE (10:00)
[2020-05-22] MEDS ORDERED: ACETAMINOPHEN 325 MG TABLET (FP) PO ONE (10:00)
[2020-05-22] MEDS ORDERED: ELOTUZUMAB IV ONE (10:30)
[2020-05-22] MEDS ORDERED: SODIUM CHLORIDE IV ONE (10:30)
[2020-05-22 11:11] LABS: BASO % 2.1 % (0-2.0); EOS % 1.6 % (0-4.5); HEMATOCRIT 41.8 % (35.4-49); HEMOGLOBIN 14.4 GM/dL (11.7-16.9); MCH 34.4 pg (25.7-33.7); MCHC 34.5 g/dl (32.0-35.9); MEAN CELL VOLUME 99.8 fl (80-96); MEAN PLT VOLUME 7.9 fl (7.5-11.1); MONO % 5.8 % (3.8-10.2); NEUT % 80.5 % (42.8-82.8); PLATELET COUNT 148 K/MM3 (134-434); RBC 4.19 M/mm3 (4.00-5.60); RDW 15.8 % (11.9-15.9); WHITE BLOOD COUNT 3.8 K/mm3 (4.0-10.0)
[2020-05-22 11:38] LABS: POTASSIUM 4.2 mmol/L (3.5-5.1)
[2020-05-22 11:40] LABS: BILIRUBIN,DIRECT 0.2 mg/dL (0.0-0.2); BILIRUBIN,TOTAL 0.8 mg/dL (0.2-1); BLOOD UREA NITROGEN 18.5 mg/dL (7-18); CALCIUM 9.2 mg/dL (8.5-10.1); CREATININE 1.1 mg/dL (0.55-1.3); MAGNESIUM 2.1 mg/dL (1.8-2.4); TOT PROT 6.3 g/dl (6.4-8.2); URIC ACID 5.1 mg/dL (2.6-7.2)
[2020-05-22 17:15] VITALS: TEMP 97.5
[2020-05-22 17:23] VITALS: BP 107/56; PULSE 62
== END 2020-05-22 15:35 | disposition home or self-care (01) ==
LOC: JONCCHEMO 06:46
PROVIDERS: ATTEND Internal Medicine Hematology & Oncology
PROC: 3E04305 Introduction of Other Antineoplastic into Central Vein, Percutaneous Approach (ICD-10-PCS; principal; 2020-05-22)
PROC: 3E043GC Introduction of Other Therapeutic Substance into Central Vein, Percutaneous Approach (ICD-10-PCS; 2020-05-22)
DX: Z51.11 Encounter for antineoplastic chemotherapy (principal); C90.00 Multiple myeloma not having achieved remission; C90.02 Multiple myeloma in relapse; I10 Essential (primary) hypertension
CPT/HCPCS: 36415; 80048; 80076; 83615; 83735; 84550; 85025; 96367; 96413; 96415; J9176

== ENCOUNTER 2020-06-18 07:13 | Day surgery (SDC) | payer OTHER, BC ==
[2020-06-18] MEDS ORDERED: ACETAMINOPHEN 325 MG TABLET (FP) PO ONE (09:30)
[2020-06-18] MEDS ORDERED: DEXAMETHASONE SODIUM PHOSPHATE 12 MG, DIPHENHYDRAMINE 50 MG in SODIUM CHLORIDE 100 ML IVPB ONE (09:30)
[2020-06-18] MEDS ORDERED: FAMOTIDINE 20 MG/50 ML IVPB 20 MG/50 ML MG IVPB ONE (09:30)
[2020-06-18] MEDS ORDERED: ELOTUZUMAB IV ONE (10:00)
[2020-06-18] MEDS ORDERED: SODIUM CHLORIDE IV ONE (10:00)
[2020-06-18 10:23] LABS: BASO % 1.6 % (0-2.0); EOS % 1.2 % (0-4.5); HEMATOCRIT 40.9 % (35.4-49); HEMOGLOBIN 13.9 GM/dL (11.7-16.9); LYMPH % 8.6 % (8-40); MEAN CELL VOLUME 100.2 fl (80-96); MEAN PLT VOLUME 7.8 fl (7.5-11.1); MONO % 6.3 % (3.8-10.2); NEUT % 82.3 % (42.8-82.8); PLATELET COUNT 136 K/MM3 (134-434); RBC 4.09 M/mm3 (4.00-5.60); RDW 15.4 % (11.9-15.9); WHITE BLOOD COUNT 3.7 K/mm3 (4.0-10.0)
[2020-06-18 10:44] LABS: POTASSIUM 3.9 mmol/L (3.5-5.1)
[2020-06-18 10:45] LABS: CALCIUM 9.3 mg/dL (8.5-10.1)
[2020-06-18 10:46] LABS: BLOOD UREA NITROGEN 18.2 mg/dL (7-18); MAGNESIUM 2.3 mg/dL (1.8-2.4)
[2020-06-18 10:48] LABS: URIC ACID 4.7 mg/dL (2.6-7.2)
[2020-06-18 10:50] LABS: ALBUMIN 3.1 g/dl (3.4-5.0)
[2020-06-18 10:52] LABS: BILIRUBIN,DIRECT 0.2 mg/dL (0.0-0.2)
[2020-06-18 10:55] LABS: BILIRUBIN,TOTAL 0.8 mg/dL (0.2-1); TOT PROT 4.8 g/dl (6.4-8.2)
[2020-06-18 11:00] LABS: ERYTHROCYTE SEDIMENTATION RATE 7 mm/hr (0-20)
[2020-06-18 15:58] VITALS: BP 111/61; TEMP 97.8
[2020-06-18 15:59] VITALS: PULSE 72
[2020-06-19 18:07] LABS: FREE KAPPA,SERUM 18.4 mg/L (3.3-19.4)
[2020-06-20 14:07] LABS: KAPPA LAMBDA RATIO URIN >15.78 (1.03-31.76)
== END 2020-06-18 15:10 | disposition home or self-care (01) ==
LOC: JONCCHEMO 07:13
PROVIDERS: ATTEND Internal Medicine Hematology & Oncology
DX: Z51.11 Encounter for antineoplastic chemotherapy (principal); C90.00 Multiple myeloma not having achieved remission
CPT/HCPCS: 36415; 80048; 80076; 82784; 83615; 83735; 83883; 84155; 84165; 84550; 85025; 85651; 96367; 96413; J9176

== ENCOUNTER 2020-07-16 06:04 | Day surgery (SDC) | payer OTHER, BC ==
[2020-07-16] MEDS ORDERED: DEXAMETHASONE SODIUM PHOSPHATE 12 MG, DIPHENHYDRAMINE 50 MG in SODIUM CHLORIDE 100 ML IVPB ONE (10:00)
[2020-07-16] MEDS ORDERED: FAMOTIDINE 20 MG/50 ML IVPB 20 MG/50 ML MG IVPB ONE (10:00)
[2020-07-16] MEDS ORDERED: ACETAMINOPHEN 325 MG TABLET (FP) PO ONE (10:00)
[2020-07-16 10:04] LABS: BASO % 1.4 % (0-2.0); HEMATOCRIT 41.6 % (35.4-49); HEMOGLOBIN 14.4 GM/dL (11.7-16.9); LYMPH % 7.9 % (8-40); MCH 34.7 pg (25.7-33.7); MCHC 34.6 g/dl (32.0-35.9); MEAN CELL VOLUME 100.2 fl (80-96); MEAN PLT VOLUME 7.9 fl (7.5-11.1); MONO % 6.5 % (3.8-10.2); NEUT % 82.2 % (42.8-82.8); PLATELET COUNT 155 K/MM3 (134-434); RBC 4.15 M/mm3 (4.00-5.60); RDW 15.5 % (11.9-15.9); WHITE BLOOD COUNT 3.4 K/mm3 (4.0-10.0)
[2020-07-16 10:25] LABS: POTASSIUM 4.4 mmol/L (3.5-5.1)
[2020-07-16 10:30] LABS: MAGNESIUM 2.1 mg/dL (1.8-2.4)
[2020-07-16] MEDS ORDERED: ELOTUZUMAB IV ONE (10:30)
[2020-07-16] MEDS ORDERED: SODIUM CHLORIDE IV ONE (10:30)
[2020-07-16 10:32] LABS: ALBUMIN 3.9 g/dl (3.4-5.0); BLOOD UREA NITROGEN 20.5 mg/dL (7-18); CALCIUM 8.9 mg/dL (8.5-10.1)
[2020-07-16 10:34] LABS: BILIRUBIN,DIRECT 0.2 mg/dL (0.0-0.2); CREATININE 1.2 mg/dL (0.55-1.3); URIC ACID 4.4 mg/dL (2.6-7.2)
[2020-07-16 10:35] LABS: TOT PROT 6.2 g/dl (6.4-8.2)
[2020-07-16 10:36] LABS: BILIRUBIN,TOTAL 0.8 mg/dL (0.2-1)
[2020-07-16 16:31] VITALS: BP 134/58; PULSE 58; TEMP 98.1
[2020-07-18 07:10] LABS: BETA-2-MICROGLOBULIN 1.8 mg/L (0.6-2.4)
[2020-07-19 04:07] LABS: FREE KAP CHN UR 10.32 mg/L (0.63-113.79); KAPPA LAMBDA RATIO URIN 13.58 (1.03-31.76)
== END 2020-07-16 14:00 | disposition home or self-care (01) ==
LOC: JONCCHEMO 06:04
PROVIDERS: ATTEND Internal Medicine Hematology & Oncology
DX: Z51.11 Encounter for antineoplastic chemotherapy (principal); C90.00 Multiple myeloma not having achieved remission
CPT/HCPCS: 36415; 80048; 80076; 82232; 82784; 83036; 83615; 83735; 83883; 84155; 84165; 84550; 85025; 86335; 96367; 96413; J9176

== ENCOUNTER 2020-08-13 08:59 | Day surgery (SDC) | payer OTHER, BC ==
[2020-08-13 09:23] LABS: BASO % 1.5 % (0-2.0); EOS % 2.9 % (0-4.5); HEMATOCRIT 40.1 % (35.4-49); HEMOGLOBIN 13.8 GM/dL (11.7-16.9); LYMPH % 10.3 % (8-40); MCH 34.3 pg (25.7-33.7); MCHC 34.5 g/dl (32.0-35.9); MEAN CELL VOLUME 99.4 fl (80-96); MEAN PLT VOLUME 7.5 fl (7.5-11.1); MONO % 8.6 % (3.8-10.2); NEUT % 76.7 % (42.8-82.8); PLATELET COUNT 157 K/MM3 (134-434); RBC 4.03 M/mm3 (4.00-5.60); WHITE BLOOD COUNT 3.6 K/mm3 (4.0-10.0)
[2020-08-13] MEDS ORDERED: FAMOTIDINE 20 MG/50 ML IVPB 20 MG/50 ML MG IVPB ONE (09:30)
[2020-08-13] MEDS ORDERED: ACETAMINOPHEN 325 MG TABLET (FP) PO ONE (09:30)
[2020-08-13] MEDS ORDERED: DEXAMETHASONE SODIUM PHOSPHATE 12 MG, DIPHENHYDRAMINE 50 MG in SODIUM CHLORIDE 100 ML IVPB ONE (09:30)
[2020-08-13 09:44] LABS: CALCIUM 9.1 mg/dL (8.5-10.1)
[2020-08-13 09:45] LABS: ALBUMIN 3.9 g/dl (3.4-5.0); BLOOD UREA NITROGEN 15.8 mg/dL (7-18)
[2020-08-13 09:46] LABS: URIC ACID 4.9 mg/dL (2.6-7.2)
[2020-08-13 09:47] LABS: BILIRUBIN,DIRECT 0.2 mg/dL (0.0-0.2)
[2020-08-13 09:48] LABS: CREATININE 1.2 mg/dL (0.55-1.3)
[2020-08-13 09:49] LABS: BILIRUBIN,TOTAL 0.9 mg/dL (0.2-1); TOT PROT 6.1 g/dl (6.4-8.2)
[2020-08-13 09:55] LABS: CHOLESTEROL 140 mg/dL (50-200); TRIGLYCERIDES 128 mg/dL (0-150)
[2020-08-13 09:56] LABS: LDL CHOLESTEROL (ONLY SJRH) 69 mg/dL (5-100)
[2020-08-13 09:58] LABS: HDL CHOLESTEROL 57 mg/dL (40-60)
[2020-08-13] MEDS ORDERED: ELOTUZUMAB IV ONE (10:00)
[2020-08-13] MEDS ORDERED: SODIUM CHLORIDE IV ONE (10:00)
[2020-08-13 15:43] VITALS: TEMP 98.3
[2020-08-13 15:44] VITALS: BP 131/80; PULSE 59
[2020-08-15 05:16] LABS: KAPPA LAMBDA RATIO URIN >13.59 (1.03-31.76)
[2020-08-15 08:06] LABS: BETA-2-MICROGLOBULIN 1.6 mg/L (0.6-2.4)
[2020-08-15 19:07] LABS: FREE KAPPA,SERUM 20.8 mg/L (3.3-19.4)
== END 2020-08-13 14:30 | disposition home or self-care (01) ==
LOC: JONCCHEMO 08:59
PROVIDERS: ATTEND Internal Medicine Hematology & Oncology
DX: Z51.11 Encounter for antineoplastic chemotherapy (principal); C90.00 Multiple myeloma not having achieved remission
CPT/HCPCS: 36415; 80048; 80061; 80076; 82232; 82784; 83615; 83721; 83735; 83883; 84155; 84165; 84550; 85025; 86335; 96367; 96413; J9176

== ENCOUNTER 2020-09-17 07:05 | Day surgery (SDC) | payer OTHER, BC ==
[2020-09-17] MEDS ORDERED: DEXAMETHASONE SODIUM PHOSPHATE 12 MG, DIPHENHYDRAMINE 50 MG in SODIUM CHLORIDE 100 ML IVPB ONE (10:00)
[2020-09-17] MEDS ORDERED: ACETAMINOPHEN 325 MG TABLET (FP) PO ONE (10:00)
[2020-09-17] MEDS ORDERED: FAMOTIDINE 20 MG/50 ML IVPB 20 MG/50 ML MG IVPB ONE (10:00)
[2020-09-17 10:24] LABS: BASO % 1.1 % (0-2.0); HEMATOCRIT 42.1 % (35.4-49); HEMOGLOBIN 14.2 GM/dL (11.7-16.9); LYMPH % 9.2 % (8-40); MCH 33.6 pg (25.7-33.7); MCHC 33.8 g/dl (32.0-35.9); MEAN CELL VOLUME 99.3 fl (80-96); MEAN PLT VOLUME 7.9 fl (7.5-11.1); MONO % 2.6 % (3.8-10.2); NEUT % 85.1 % (42.8-82.8); PLATELET COUNT 195 K/MM3 (134-434); RBC 4.23 M/mm3 (4.00-5.60); RDW 15.5 % (11.9-15.9); WHITE BLOOD COUNT 4.2 K/mm3 (4.0-10.0)
[2020-09-17] MEDS ORDERED: SODIUM CHLORIDE IV ONE (10:30)
[2020-09-17] MEDS ORDERED: ELOTUZUMAB IV ONE (10:30)
[2020-09-17 10:36] LABS: POTASSIUM 3.8 mmol/L (3.5-5.1)
[2020-09-17 10:38] LABS: CALCIUM 8.7 mg/dL (8.5-10.1)
[2020-09-17 10:39] LABS: ALBUMIN 3.9 g/dl (3.4-5.0); BLOOD UREA NITROGEN 20.7 mg/dL (7-18); MAGNESIUM 2.1 mg/dL (1.8-2.4)
[2020-09-17 10:41] LABS: URIC ACID 4.9 mg/dL (2.6-7.2)
[2020-09-17 10:42] LABS: BILIRUBIN,DIRECT 0.3 mg/dL (0.0-0.2); CREATININE 1.1 mg/dL (0.55-1.3)
[2020-09-17 10:43] LABS: BILIRUBIN,TOTAL 0.9 mg/dL (0.2-1)
[2020-09-17 10:44] LABS: TOT PROT 6.4 g/dl (6.4-8.2)
[2020-09-17 15:58] VITALS: TEMP 97.9
[2020-09-17 16:02] VITALS: BP 143/68; PULSE 68
[2020-09-18 08:09] LABS: IGA IMMUNOGLOBULIN 16 mg/dL (61-437); IGG QN IMMUNOGLOBULIN 424 mg/dL (603-1613); IGM QN SERUM 9 mg/dL (15-143)
== END 2020-09-17 12:10 | disposition home or self-care (01) ==
LOC: JONCCHEMO 07:05
PROVIDERS: ATTEND Internal Medicine Hematology & Oncology
DX: Z51.11 Encounter for antineoplastic chemotherapy (principal); C90.00 Multiple myeloma not having achieved remission
CPT/HCPCS: 36415; 80048; 80076; 82232; 82784; 83615; 83735; 83883; 84153; 84155; 84165; 84550; 85025; 86335; 96367; 96413; 96415; J9176

== ENCOUNTER 2020-10-15 06:58 | Day surgery (SDC) | payer OTHER, BC ==
[~2020-10-15 06:58] MED LIST: DEXAMETHASONE SODIUM PHOSPHATE 12 MG, DIPHENHYDRAMINE 50 MG in SODIUM CHLORIDE 100 ML IVPB ONE
[2020-10-15] MEDS ORDERED: FAMOTIDINE 20 MG/50 ML IVPB 20 MG/50 ML MG IVPB ONE (09:30)
[2020-10-15] MEDS ORDERED: DEXAMETHASONE SODIUM PHOSPHATE 12 MG, DIPHENHYDRAMINE 50 MG in SODIUM CHLORIDE 100 ML IVPB ONE (09:30)
[2020-10-15] MEDS ORDERED: ACETAMINOPHEN 325 MG TABLET (FP) PO ONE (09:30)
[2020-10-15] MEDS ORDERED: ELOTUZUMAB IV ONE ×2 (10:00→11:15)
[2020-10-15] MEDS ORDERED: SODIUM CHLORIDE IV ONE ×2 (10:00→11:15)
[2020-10-15 10:12] LABS: POTASSIUM 3.8 mmol/L (3.5-5.1)
[2020-10-15 10:15] LABS: ALBUMIN 3.8 g/dl (3.4-5.0)
[2020-10-15 10:16] LABS: BLOOD UREA NITROGEN 20.3 mg/dL (7-18)
[2020-10-15 10:18] LABS: BILIRUBIN,DIRECT 0.3 mg/dL (0.0-0.2); CREATININE 1.1 mg/dL (0.55-1.3)
[2020-10-15 10:20] LABS: TOT PROT 6.1 g/dl (6.4-8.2)
[2020-10-15 10:22] LABS: CALCIUM 8.9 mg/dL (8.5-10.1)
[2020-10-15 11:38] LABS: BASO % 1.6 % (0-2.0); EOS % 2.9 % (0-4.5); HEMATOCRIT 41.1 % (35.4-49); HEMOGLOBIN 14.1 GM/dL (11.7-16.9); LYMPH % 10.3 % (8-40); MCHC 34.3 g/dl (32.0-35.9); MEAN CELL VOLUME 99.3 fl (80-96); MEAN PLT VOLUME 7.8 fl (7.5-11.1); MONO % 3.5 % (3.8-10.2); NEUT % 81.7 % (42.8-82.8); PLATELET COUNT 177 K/MM3 (134-434); RBC 4.14 M/mm3 (4.00-5.60); RDW 15.6 % (11.9-15.9); WHITE BLOOD COUNT 3.4 K/mm3 (4.0-10.0)
[2020-10-15 16:16] VITALS: TEMP 97.8
[2020-10-15 16:57] VITALS: BP 119/55; PULSE 66
[2020-10-16 08:07] LABS: IGA IMMUNOGLOBULIN 16 mg/dL (61-437); IGG QN IMMUNOGLOBULIN 419 mg/dL (603-1613); IGM QN SERUM 8 mg/dL (15-143)
== END 2020-10-15 15:15 | disposition home or self-care (01) ==
LOC: JONCCHEMO 06:58
PROVIDERS: ATTEND Internal Medicine Hematology & Oncology
DX: Z51.11 Encounter for antineoplastic chemotherapy (principal); C90.00 Multiple myeloma not having achieved remission
CPT/HCPCS: 36415; 80048; 80076; 82784; 83735; 83883; 84155; 84165; 85025; 96367; 96413; 96415; J9176

== ENCOUNTER 2020-11-21 04:50 | Day surgery (SDC) | payer OTHER, BC ==
[2020-11-19 14:21] VITALS: BMI 31.4
[2020-11-21] MEDS ORDERED: METOPROLOL TARTRATE 5 MG/5 ML VIAL ONE (11:14)
[2020-11-21 11:45] VITALS: TEMP 97.1
[2020-11-21 12:26] VITALS: BP 133/49; PULSE 55
== END 2020-11-21 12:34 | disposition home or self-care (01) ==
LOC: JASU-ENDO 04:50
PROVIDERS: ATTEND Internal Medicine Gastroenterology
PROC: 0DBL8ZX Excision of Transverse Colon, Via Natural or Artificial Opening Endoscopic, Diagnostic (ICD-10-PCS; principal; 2020-11-21 11:09)
DX: Z86.010 Personal history of colon polyps (principal); D12.3 Benign neoplasm of transverse colon; K57.30 Diverticulosis of large intestine without perforation or abscess without bleeding; R93.89 Abnormal findings on diagnostic imaging of other specified body structures
CPT/HCPCS: 88305-TC

== ENCOUNTER 2020-12-10 06:51 | Day surgery (SDC) | payer OTHER, BC ==
[2020-12-10] MEDS ORDERED: ACETAMINOPHEN 325 MG TABLET (FP) PO ONE (09:30)
[2020-12-10] MEDS ORDERED: DEXAMETHASONE SODIUM PHOSPHATE 12 MG, DIPHENHYDRAMINE 50 MG in SODIUM CHLORIDE 100 ML IVPB ONE (09:30)
[2020-12-10] MEDS ORDERED: FAMOTIDINE 20 MG/50 ML IVPB 20 MG/50 ML MG IVPB ONE (09:30)
[2020-12-10] MEDS ORDERED: SODIUM CHLORIDE IV ONE (10:00)
[2020-12-10] MEDS ORDERED: ELOTUZUMAB IV ONE (10:00)
[2020-12-10 10:13] LABS: BASO % 1.7 % (0-2.0); EOS % 2.7 % (0-4.5); HEMATOCRIT 41.6 % (35.4-49); HEMOGLOBIN 14.5 GM/dL (11.7-16.9); LYMPH % 11.9 % (8-40); MCH 34.3 pg (25.7-33.7); MCHC 34.8 g/dl (32.0-35.9); MEAN CELL VOLUME 98.5 fl (80-96); MEAN PLT VOLUME 7.7 fl (7.5-11.1); MONO % 3.1 % (3.8-10.2); NEUT % 80.6 % (42.8-82.8); PLATELET COUNT 181 K/MM3 (134-434); RBC 4.22 M/mm3 (4.00-5.60); RDW 14.9 % (11.9-15.9); WHITE BLOOD COUNT 3.8 K/mm3 (4.0-10.0)
[2020-12-10 10:31] LABS: CALCIUM 9.1 mg/dL (8.5-10.1)
[2020-12-10 10:32] LABS: BLOOD UREA NITROGEN 20.8 mg/dL (7-18)
[2020-12-10 10:35] LABS: CREATININE 1.2 mg/dL (0.55-1.3); URIC ACID 5.6 mg/dL (2.6-7.2)
[2020-12-10 10:36] LABS: MAGNESIUM 2.2 mg/dL (1.8-2.4)
[2020-12-10 10:40] LABS: BILIRUBIN,DIRECT 0.3 mg/dL (0.0-0.2)
[2020-12-10 10:42] LABS: TOT PROT 6.4 g/dl (6.4-8.2)
[2020-12-10 14:57] VITALS: TEMP 98.3
[2020-12-10 14:58] VITALS: BP 140/53; PULSE 74
[2020-12-11 18:17] LABS: FREE KAPPA,SERUM 19.5 mg/L (3.3-19.4)
== END 2020-12-10 13:40 | disposition home or self-care (01) ==
LOC: JONCCHEMO 06:51
PROVIDERS: ATTEND Internal Medicine Hematology & Oncology
DX: Z51.11 Encounter for antineoplastic chemotherapy (principal); C90.00 Multiple myeloma not having achieved remission
CPT/HCPCS: 36415; 80048; 80061; 80076; 82784; 83615; 83721; 83735; 83883; 84155; 84156; 84165; 84550; 85025; 86335; 96367; 96413; J9176

== ENCOUNTER 2021-01-08 07:38 | Day surgery (SDC) | payer OTHER, BC ==
[2021-01-08] MEDS ORDERED: DEXAMETHASONE SODIUM PHOSPHATE 12 MG, DIPHENHYDRAMINE 50 MG in SODIUM CHLORIDE 100 ML IVPB ONE (10:00)
[2021-01-08] MEDS ORDERED: FAMOTIDINE 20 MG/50 ML IVPB 20 MG/50 ML MG IVPB ONE (10:00)
[2021-01-08] MEDS ORDERED: ACETAMINOPHEN 325 MG TABLET (FP) PO ONE (10:00)
[2021-01-08 10:26] LABS: BASO % 3.4 % (0-2.0); EOS % 0.8 % (0-4.5); HEMATOCRIT 42.6 % (35.4-49); HEMOGLOBIN 14.5 GM/dL (11.7-16.9); LYMPH % 9.4 % (8-40); MCHC 34.1 g/dl (32.0-35.9); MEAN CELL VOLUME 99.6 fl (80-96); MEAN PLT VOLUME 7.7 fl (7.5-11.1); MONO % 1.6 % (3.8-10.2); NEUT % 84.8 % (42.8-82.8); PLATELET COUNT 177 K/MM3 (134-434); RBC 4.27 M/mm3 (4.00-5.60); RDW 15.4 % (11.9-15.9); WHITE BLOOD COUNT 4.7 K/mm3 (4.0-10.0)
[2021-01-08] MEDS ORDERED: SODIUM CHLORIDE IV ONE (10:30)
[2021-01-08] MEDS ORDERED: ELOTUZUMAB IV ONE (10:30)
[2021-01-08 10:31] LABS: CALCIUM 9.1 mg/dL (8.5-10.1)
[2021-01-08 10:32] LABS: BLOOD UREA NITROGEN 21.5 mg/dL (7-18); MAGNESIUM 2.2 mg/dL (1.8-2.4)
[2021-01-08 10:34] LABS: BILIRUBIN,DIRECT 0.3 mg/dL (0.0-0.2)
[2021-01-08 10:35] LABS: CREATININE 1.1 mg/dL (0.55-1.3)
[2021-01-08 10:36] LABS: BILIRUBIN,TOTAL 0.9 mg/dL (0.2-1); TOT PROT 6.2 g/dl (6.4-8.2)
[2021-01-08 17:30] VITALS: TEMP 98.7
[2021-01-08 17:38] VITALS: BP 122/61; PULSE 50
[2021-01-09 17:07] LABS: FREE KAPPA,SERUM 17.2 mg/L (3.3-19.4)
[2021-01-10 05:11] LABS: FREE KAP CHN UR 25.93 mg/L (0.63-113.79); KAPPA LAMBDA RATIO URIN 8.59 (1.03-31.76)
== END 2021-01-08 13:45 | disposition home or self-care (01) ==
LOC: JONCCHEMO 07:38
PROVIDERS: ATTEND Internal Medicine Hematology & Oncology
DX: Z51.11 Encounter for antineoplastic chemotherapy (principal); C90.00 Multiple myeloma not having achieved remission
CPT/HCPCS: 36415; 80048; 80076; 82784; 83615; 83735; 83883; 84155; 84165; 85025; 86335; 96367; 96413; J9176

== ENCOUNTER 2021-02-04 07:07 | Day surgery (SDC) | payer OTHER, BC ==
[2021-02-04] MEDS ORDERED: DEXAMETHASONE SODIUM PHOSPHATE 12 MG, DIPHENHYDRAMINE 50 MG in SODIUM CHLORIDE 100 ML IVPB ONE (09:30)
[2021-02-04] MEDS ORDERED: FAMOTIDINE 20 MG/50 ML IVPB 20 MG/50 ML MG IVPB ONE (09:30)
[2021-02-04] MEDS ORDERED: ACETAMINOPHEN 325 MG TABLET (FP) PO ONE (09:30)
[2021-02-04] MEDS ORDERED: SODIUM CHLORIDE IV ONE (10:00)
[2021-02-04] MEDS ORDERED: ELOTUZUMAB IV ONE (10:00)
[2021-02-04 10:14] LABS: BASO % 2.6 % (0-2.0); EOS % 2.1 % (0-4.5); HEMATOCRIT 43.3 % (35.4-49); HEMOGLOBIN 14.4 GM/dL (11.7-16.9); LYMPH % 7.3 % (8-40); MCH 33.2 pg (25.7-33.7); MCHC 33.3 g/dl (32.0-35.9); MEAN CELL VOLUME 99.5 fl (80-96); MEAN PLT VOLUME 7.8 fl (7.5-11.1); MONO % 3.5 % (3.8-10.2); NEUT % 84.5 % (42.8-82.8); PLATELET COUNT 179 10^3/uL (134-434); RBC 4.35 M/mm3 (4.00-5.60); RDW 15.6 % (11.9-15.9); WHITE BLOOD COUNT 4.8 K/mm3 (4.0-10.0)
[2021-02-04 10:34] LABS: BLOOD UREA NITROGEN 18.6 mg/dL (7-18); CALCIUM 8.5 mg/dL (8.5-10.1)
[2021-02-04 10:35] LABS: ALBUMIN 4.1 g/dl (3.4-5.0); MAGNESIUM 2.3 mg/dL (1.8-2.4)
[2021-02-04 10:37] LABS: BILIRUBIN,DIRECT 0.3 mg/dL (0.0-0.2)
[2021-02-04 10:38] LABS: CREATININE 1.2 mg/dL (0.55-1.3)
[2021-02-04 10:39] LABS: BILIRUBIN,TOTAL 0.7 mg/dL (0.2-1); TOT PROT 6.3 g/dl (6.4-8.2)
[2021-02-04 18:19] VITALS: TEMP 98
[2021-02-04 18:25] VITALS: BP 126/52; PULSE 55
[2021-02-05 18:07] LABS: FREE KAPPA,SERUM 18.4 mg/L (3.3-19.4)
[2021-02-06 08:10] LABS: FREE KAP CHN UR 5.88 mg/L (0.63-113.79); KAPPA LAMBDA RATIO URIN 5.65 (1.03-31.76)
== END 2021-02-04 12:40 | disposition home or self-care (01) ==
LOC: JONCCHEMO 07:07
PROVIDERS: ATTEND Internal Medicine Hematology & Oncology
DX: Z51.11 Encounter for antineoplastic chemotherapy (principal); C90.00 Multiple myeloma not having achieved remission
CPT/HCPCS: 36415; 80048; 80076; 82784; 83615; 83735; 83883; 84155; 84165; 85025; 86335; 96367; 96413; J9176

== ENCOUNTER 2021-03-04 06:43 | Day surgery (SDC) | payer OTHER, BC ==
[2021-03-04 09:56] LABS: BASO % 1.5 % (0-2.0); EOS % 1.7 % (0-4.5); HEMATOCRIT 42.2 % (35.4-49); HEMOGLOBIN 14.3 GM/dL (11.7-16.9); LYMPH % 11.4 % (8-40); MCH 33.5 pg (25.7-33.7); MEAN CELL VOLUME 98.7 fl (80-96); MEAN PLT VOLUME 7.3 fl (7.5-11.1); MONO % 3.2 % (3.8-10.2); NEUT % 82.2 % (42.8-82.8); PLATELET COUNT 165 10^3/uL (134-434); RBC 4.27 M/mm3 (4.00-5.60); RDW 15.7 % (11.9-15.9); WHITE BLOOD COUNT 4.2 K/mm3 (4.0-10.0)
[2021-03-04] MEDS ORDERED: FAMOTIDINE 20 MG/50 ML IVPB 20 MG/50 ML MG IVPB ONE (10:00)
[2021-03-04] MEDS ORDERED: ACETAMINOPHEN 325 MG TABLET (FP) PO ONE (10:00)
[2021-03-04] MEDS ORDERED: DEXAMETHASONE SODIUM PHOSPHATE 12 MG, DIPHENHYDRAMINE 50 MG in SODIUM CHLORIDE 100 ML IVPB ONE (10:00)
[2021-03-04 10:15] LABS: ALBUMIN 4.1 g/dl (3.4-5.0); BLOOD UREA NITROGEN 16.6 mg/dL (7-18)
[2021-03-04 10:16] LABS: MAGNESIUM 2.3 mg/dL (1.8-2.4)
[2021-03-04 10:18] LABS: BILIRUBIN,DIRECT 0.3 mg/dL (0.0-0.2); CREATININE 1.2 mg/dL (0.55-1.3); URIC ACID 4.6 mg/dL (2.6-7.2)
[2021-03-04 10:20] LABS: BILIRUBIN,TOTAL 0.8 mg/dL (0.2-1); TOT PROT 6.4 g/dl (6.4-8.2)
[2021-03-04] MEDS ORDERED: ELOTUZUMAB IV ONE (10:30)
[2021-03-04] MEDS ORDERED: SODIUM CHLORIDE IV ONE (10:30)
[2021-03-04 16:26] VITALS: TEMP 98.2
[2021-03-04 16:29] VITALS: BP 122/63; PULSE 78
[2021-03-05 16:13] LABS: FREE KAPPA,SERUM 17.8 mg/L (3.3-19.4)
[2021-03-06 05:06] LABS: FREE KAP CHN UR 4.25 mg/L (0.63-113.79); KAPPA LAMBDA RATIO URIN 4.78 (1.03-31.76)
== END 2021-03-04 14:25 | disposition home or self-care (01) ==
LOC: JONCCHEMO 06:43
PROVIDERS: ATTEND Internal Medicine Hematology & Oncology
DX: Z51.11 Encounter for antineoplastic chemotherapy (principal); C90.00 Multiple myeloma not having achieved remission
CPT/HCPCS: 36415; 80048; 80076; 82784; 83615; 83735; 83883; 84155; 84165; 84550; 85025; 86335; 96367; 96413; J9176

== ENCOUNTER 2021-04-01 06:53 | Day surgery (SDC) | payer OTHER, BC ==
[2021-04-01] MEDS ORDERED: DEXAMETHASONE SODIUM PHOSPHATE 12 MG, DIPHENHYDRAMINE 50 MG in SODIUM CHLORIDE 100 ML IVPB ONE (09:30)
[2021-04-01] MEDS ORDERED: FAMOTIDINE 20 MG/50 ML IVPB 20 MG/50 ML MG IVPB ONE (09:30)
[2021-04-01] MEDS ORDERED: ACETAMINOPHEN 325 MG TABLET (FP) PO ONE (09:30)
[2021-04-01 09:41] LABS: BASO % 1.6 % (0-2.0); EOS % 2.2 % (0-4.5); HEMATOCRIT 41.7 % (35.4-49); HEMOGLOBIN 14.5 GM/dL (11.7-16.9); LYMPH % 10.4 % (8-40); MCH 33.9 pg (25.7-33.7); MCHC 34.7 g/dl (32.0-35.9); MEAN CELL VOLUME 97.8 fl (80-96); MEAN PLT VOLUME 7.5 fl (7.5-11.1); NEUT % 80.8 % (42.8-82.8); PLATELET COUNT 172 10^3/uL (134-434); RBC 4.27 M/mm3 (4.00-5.60); RDW 15.3 % (11.9-15.9); WHITE BLOOD COUNT 4.6 K/mm3 (4.0-10.0)
[2021-04-01] MEDS ORDERED: SODIUM CHLORIDE IV ONE (10:00)
[2021-04-01] MEDS ORDERED: ELOTUZUMAB IV ONE (10:00)
[2021-04-01 10:04] LABS: CALCIUM 8.5 mg/dL (8.5-10.1); MAGNESIUM 2.2 mg/dL (1.8-2.4)
[2021-04-01 10:07] LABS: CREATININE 1.3 mg/dL (0.55-1.3); URIC ACID 4.7 mg/dL (2.6-7.2)
[2021-04-01 10:08] LABS: BILIRUBIN,DIRECT 0.2 mg/dL (0.0-0.2)
[2021-04-01 10:09] LABS: TOT PROT 6.2 g/dl (6.4-8.2)
[2021-04-01 10:10] LABS: BILIRUBIN,TOTAL 0.8 mg/dL (0.2-1)
[2021-04-01 17:43] VITALS: TEMP 98.4
[2021-04-01 17:47] VITALS: BP 131/60; PULSE 74
[2021-04-02 18:07] LABS: FREE KAPPA,SERUM 18.6 mg/L (3.3-19.4)
[2021-04-03 05:09] LABS: FREE KAP CHN UR 4.61 mg/L (0.63-113.79); KAPPA LAMBDA RATIO URIN 5.07 (1.03-31.76)
== END 2021-04-01 13:45 | disposition home or self-care (01) ==
LOC: JONCCHEMO 06:53
PROVIDERS: ATTEND Internal Medicine Hematology & Oncology
DX: Z51.11 Encounter for antineoplastic chemotherapy (principal); C90.00 Multiple myeloma not having achieved remission
CPT/HCPCS: 36415; 80048; 80076; 82784; 83615; 83735; 83883; 84155; 84165; 84550; 85025; 86335; 96367; 96413; J9176

== ENCOUNTER 2021-04-29 07:40 | Day surgery (SDC) | payer OTHER, BC ==
[2021-04-29] MEDS ORDERED: DEXAMETHASONE SODIUM PHOSPHATE 12 MG, DIPHENHYDRAMINE 50 MG in SODIUM CHLORIDE 100 ML IVPB ONE (10:00)
[2021-04-29] MEDS ORDERED: ACETAMINOPHEN 325 MG TABLET (FP) PO ONE (10:00)
[2021-04-29] MEDS ORDERED: FAMOTIDINE 20 MG/50 ML IVPB 20 MG/50 ML MG IVPB ONE (10:00)
[2021-04-29 10:08] LABS: BASO % 1.1 % (0-2.0); EOS % 1.6 % (0-4.5); HEMATOCRIT 40.3 % (35.4-49); HEMOGLOBIN 14.1 GM/dL (11.7-16.9); LYMPH % 10.1 % (8-40); MCH 34.1 pg (25.7-33.7); MCHC 34.9 g/dl (32.0-35.9); MEAN CELL VOLUME 97.7 fl (80-96); MEAN PLT VOLUME 7.5 fl (7.5-11.1); NEUT % 82.2 % (42.8-82.8); PLATELET COUNT 166 10^3/uL (134-434); RBC 4.12 M/mm3 (4.00-5.60); RDW 15.1 % (11.9-15.9); WHITE BLOOD COUNT 3.7 K/mm3 (4.0-10.0)
[2021-04-29 10:25] LABS: ALBUMIN 3.9 g/dl (3.4-5.0); BLOOD UREA NITROGEN 17.5 mg/dL (7-18); CALCIUM 8.8 mg/dL (8.5-10.1)
[2021-04-29 10:26] LABS: MAGNESIUM 2.3 mg/dL (1.8-2.4)
[2021-04-29 10:27] LABS: BILIRUBIN,DIRECT 0.3 mg/dL (0.0-0.2); URIC ACID 5.2 mg/dL (2.6-7.2)
[2021-04-29 10:28] LABS: CREATININE 1.1 mg/dL (0.55-1.3)
[2021-04-29 10:29] LABS: BILIRUBIN,TOTAL 0.9 mg/dL (0.2-1); TOT PROT 6.2 g/dl (6.4-8.2)
[2021-04-29] MEDS ORDERED: SODIUM CHLORIDE IV ONE (10:30)
[2021-04-29] MEDS ORDERED: ELOTUZUMAB IV ONE (10:30)
[2021-04-29 15:07] VITALS: TEMP 98.4
[2021-04-29 15:08] VITALS: BP 132/56; PULSE 69
[2021-04-30 17:07] LABS: FREE KAPPA,SERUM 18.2 mg/L (3.3-19.4)
[2021-05-01 06:06] LABS: FREE KAP CHN UR 16.16 mg/L (0.63-113.79); KAPPA LAMBDA RATIO URIN 6.41 (1.03-31.76)
== END 2021-04-29 13:55 | disposition home or self-care (01) ==
LOC: JONCCHEMO 07:40
PROVIDERS: ATTEND Internal Medicine Hematology & Oncology
DX: Z51.11 Encounter for antineoplastic chemotherapy (principal); C90.00 Multiple myeloma not having achieved remission
CPT/HCPCS: 36415; 80048; 80076; 82784; 83615; 83735; 83883; 84155; 84165; 84550; 85025; 86335; 96367; 96413; J9176

== ENCOUNTER 2021-05-27 07:43 | Day surgery (SDC) | payer OTHER, BC ==
[2021-05-27 09:26] LABS: BASO % 1.3 % (0-2.0); EOS % 2.6 % (0-4.5); HEMATOCRIT 40.8 % (35.4-49); HEMOGLOBIN 14.3 GM/dL (11.7-16.9); LYMPH % 12.6 % (8-40); MCH 34.4 pg (25.7-33.7); MCHC 34.9 g/dl (32.0-35.9); MEAN CELL VOLUME 98.4 fl (80-96); MEAN PLT VOLUME 7.5 fl (7.5-11.1); MONO % 4.3 % (3.8-10.2); NEUT % 79.2 % (42.8-82.8); PLATELET COUNT 186 10^3/uL (134-434); RBC 4.15 M/mm3 (4.00-5.60); RDW 14.7 % (11.9-15.9)
[2021-05-27] MEDS ORDERED: ACETAMINOPHEN 325 MG TABLET (FP) PO ONE (09:30)
[2021-05-27] MEDS ORDERED: DEXAMETHASONE SODIUM PHOSPHATE 12 MG, DIPHENHYDRAMINE 50 MG in SODIUM CHLORIDE 100 ML IVPB ONE (09:30)
[2021-05-27] MEDS ORDERED: FAMOTIDINE 20 MG/50 ML IVPB 20 MG/50 ML MG IVPB ONE (09:30)
[2021-05-27 09:50] LABS: ALBUMIN 3.8 g/dl (3.4-5.0); BLOOD UREA NITROGEN 16.8 mg/dL (7-18)
[2021-05-27 09:52] LABS: BILIRUBIN,DIRECT 0.3 mg/dL (0.0-0.2); URIC ACID 4.2 mg/dL (2.6-7.2)
[2021-05-27 09:53] LABS: CREATININE 1.2 mg/dL (0.55-1.3)
[2021-05-27 09:54] LABS: BILIRUBIN,TOTAL 0.9 mg/dL (0.2-1); TOT PROT 6.2 g/dl (6.4-8.2)
[2021-05-27] MEDS ORDERED: SODIUM CHLORIDE IV ONE (10:00)
[2021-05-27] MEDS ORDERED: ELOTUZUMAB IV ONE (10:00)
[2021-05-27 16:37] VITALS: TEMP 98.4
[2021-05-27 16:56] VITALS: BP 130/74; PULSE 71
[2021-05-28 18:07] LABS: FREE KAPPA,SERUM 18.3 mg/L (3.3-19.4)
[2021-05-29 06:00] LABS: FREE KAP CHN UR 4.38 mg/L (0.63-113.79); KAPPA LAMBDA RATIO URIN 3.27 (1.03-31.76)
== END 2021-05-27 14:15 | disposition home or self-care (01) ==
LOC: JONCCHEMO 07:43
PROVIDERS: ATTEND Internal Medicine Hematology & Oncology
DX: Z51.11 Encounter for antineoplastic chemotherapy (principal); C90.00 Multiple myeloma not having achieved remission
CPT/HCPCS: 36415; 80048; 80076; 82784; 83615; 83883; 84155; 84165; 84550; 85025; 86335; 86769; 96367; 96413; J9176

== ENCOUNTER 2021-07-22 07:08 | Day surgery (SDC) | payer OTHER, BC ==
[2021-07-22] MEDS ORDERED: SODIUM CHLORIDE IVPB ONE (10:00)
[2021-07-22] MEDS ORDERED: DIPHENHYDRAMINE IVPB ONE (10:00)
[2021-07-22] MEDS ORDERED: DEXAMETHASONE IVPB ONE (10:00)
[2021-07-22 10:02] LABS: BASO % 2.3 % (0-2.0); EOS % 2.3 % (0-4.5); LYMPH % 8.4 % (8-40); MCH 33.4 pg (25.7-33.7); MCHC 34.1 g/dl (32.0-35.9); MEAN PLT VOLUME 7.9 fl (7.5-11.1); MONO % 3.3 % (3.8-10.2); NEUT % 83.7 % (42.8-82.8); PLATELET COUNT 183 10^3/uL (134-434); RBC 4.19 M/mm3 (4.00-5.60); RDW 15.1 % (11.9-15.9); WHITE BLOOD COUNT 3.9 K/mm3 (4.0-10.0)
[2021-07-22 10:20] LABS: BLOOD UREA NITROGEN 19.3 mg/dL (7-18); MAGNESIUM 2.3 mg/dL (1.8-2.4)
[2021-07-22 10:22] LABS: ALBUMIN 3.7 g/dl (3.4-5.0)
[2021-07-22 10:23] LABS: BILIRUBIN,DIRECT 0.2 mg/dL (0.0-0.2); CREATININE 1.1 mg/dL (0.55-1.3)
[2021-07-22 10:24] LABS: URIC ACID 4.3 mg/dL (2.6-7.2)
[2021-07-22 10:25] LABS: BILIRUBIN,TOTAL 0.8 mg/dL (0.2-1); TOT PROT 6.2 g/dl (6.4-8.2)
[2021-07-22] MEDS ORDERED: ACETAMINOPHEN 325 MG TABLET (FP) PO ONE (10:30)
[2021-07-22] MEDS ORDERED: FAMOTIDINE 20 MG/50 ML IVPB 20 MG/50 ML MG IVPB ONE (10:30)
[2021-07-22] MEDS ORDERED: ELOTUZUMAB IV ONE (11:00)
[2021-07-22] MEDS ORDERED: SODIUM CHLORIDE IV ONE (11:00)
[2021-07-22 17:52] VITALS: BP 131/63; PULSE 80; TEMP 98.1
[2021-07-23 17:08] LABS: FREE KAPPA,SERUM 17.7 mg/L (3.3-19.4)
[2021-07-24 06:07] LABS: FREE KAP CHN UR 12.03 mg/L (0.63-113.79); KAPPA LAMBDA RATIO URIN 4.52 (1.03-31.76)
== END 2021-07-22 14:30 | disposition home or self-care (01) ==
LOC: JONCCHEMO 07:08
PROVIDERS: ATTEND Internal Medicine Hematology & Oncology
DX: Z51.11 Encounter for antineoplastic chemotherapy (principal); C90.00 Multiple myeloma not having achieved remission
CPT/HCPCS: 36415; 80048; 80076; 82784; 83735; 83883; 84155; 84165; 84550; 85025; 86335; 96367; 96413; J1100; J9176

== ENCOUNTER 2021-07-26 09:55 | Emergency (ER) | payer OTHER, BC ==
[2021-07-26 09:58] VITALS: BP 153/60; PULSE 63; TEMP 98.6; BMI 31.1
[2021-07-26] MEDS ORDERED: ALBUTEROL SO4 HFA INHALER IH ONE ×2 (10:29→10:48)
== END 2021-07-26 11:20 | disposition home or self-care (01) ==
LOC: FER 09:55
PROC: 3E0F7GC Introduction of Other Therapeutic Substance into Respiratory Tract, Via Natural or Artificial Opening (ICD-10-PCS; principal; 2021-07-26)
DX: J40 Bronchitis, not specified as acute or chronic (principal); J32.9 Chronic sinusitis, unspecified
CPT/HCPCS: 71046-TC-FY; 87804; 87807; 99284-25; C9803; U0003; U0005

== ENCOUNTER 2021-08-19 07:36 | Day surgery (SDC) | payer OTHER, BC ==
[2021-08-19] MEDS ORDERED: DEXAMETHASONE SODIUM PHOSPHATE 12 MG, DIPHENHYDRAMINE 50 MG in SODIUM CHLORIDE 100 ML IVPB ONE (10:00)
[2021-08-19] MEDS ORDERED: ACETAMINOPHEN 325 MG TABLET (FP) PO ONE (10:00)
[2021-08-19] MEDS ORDERED: FAMOTIDINE 20 MG/50 ML IVPB 20 MG/50 ML MG IVPB ONE (10:00)
[2021-08-19] MEDS ORDERED: ELOTUZUMAB IV ONE (10:30)
[2021-08-19] MEDS ORDERED: SODIUM CHLORIDE IV ONE (10:30)
[2021-08-19 10:33] LABS: BASO % 1.2 % (0-2.0); EOS % 1.6 % (0-4.5); HEMATOCRIT 41.6 % (35.4-49); HEMOGLOBIN 13.8 GM/dL (11.7-16.9); LYMPH % 8.8 % (8-40); MCH 32.4 pg (25.7-33.7); MCHC 33.3 g/dl (32.0-35.9); MEAN CELL VOLUME 97.3 fl (80-96); MEAN PLT VOLUME 7.8 fl (7.5-11.1); MONO % 5.1 % (3.8-10.2); NEUT % 83.3 % (42.8-82.8); PLATELET COUNT 165 10^3/uL (134-434); RBC 4.27 M/mm3 (4.00-5.60); WHITE BLOOD COUNT 3.7 K/mm3 (4.0-10.0)
[2021-08-19 10:54] LABS: BLOOD UREA NITROGEN 19.2 mg/dL (7-18); CALCIUM 8.9 mg/dL (8.5-10.1); MAGNESIUM 2.3 mg/dL (1.8-2.4)
[2021-08-19 10:57] LABS: BILIRUBIN,DIRECT 0.2 mg/dL (0.0-0.2); CREATININE 1.1 mg/dL (0.55-1.3); URIC ACID 4.9 mg/dL (2.6-7.2)
[2021-08-19 10:59] LABS: BILIRUBIN,TOTAL 0.9 mg/dL (0.2-1); TOT PROT 6.2 g/dl (6.4-8.2)
[2021-08-19 15:47] VITALS: BP 150/60; PULSE 72; TEMP 98.1
[2021-08-21 15:07] LABS: FREE KAPPA,SERUM 18.7 mg/L (3.3-19.4)
[2021-08-25 15:06] LABS: FREE KAP CHN UR 2.92 mg/L (0.63-113.79); KAPPA LAMBDA RATIO URIN 2.75 (1.03-31.76)
== END 2021-08-19 15:48 | disposition home or self-care (01) ==
LOC: JONCCHEMO 07:36
PROVIDERS: ATTEND Internal Medicine Hematology & Oncology
DX: Z51.11 Encounter for antineoplastic chemotherapy (principal); C90.00 Multiple myeloma not having achieved remission
CPT/HCPCS: 36415; 80048; 80076; 82784; 83615; 83735; 83883; 84155; 84165; 84550; 85025; 86335; 96367; 96375; 96413; J9176

== ENCOUNTER 2021-09-16 07:15 | Day surgery (SDC) | payer OTHER, BC ==
[2021-09-16 10:03] LABS: HEMATOCRIT 42.1 % (35.4-49); HEMOGLOBIN 14.4 GM/dL (11.7-16.9); MCH 33.2 pg (25.7-33.7); MCHC 34.2 g/dl (32.0-35.9); MEAN PLT VOLUME 7.5 fl (7.5-11.1); PLATELET COUNT 154 10^3/uL (134-434); RBC 4.34 M/mm3 (4.00-5.60); WHITE BLOOD COUNT 3.9 K/mm3 (4.0-10.0)
[2021-09-16 10:30] LABS: CALCIUM 9.2 mg/dL (8.5-10.1)
[2021-09-16] MEDS ORDERED: FAMOTIDINE 20 MG/50 ML IVPB 20 MG/50 ML MG IVPB ONE (10:30)
[2021-09-16] MEDS ORDERED: DEXAMETHASONE SODIUM PHOSPHATE 12 MG, DIPHENHYDRAMINE 50 MG in SODIUM CHLORIDE 100 ML IVPB ONE (10:30)
[2021-09-16] MEDS ORDERED: ACETAMINOPHEN 325 MG TABLET (FP) PO ONE (10:30)
[2021-09-16 10:31] LABS: BLOOD UREA NITROGEN 18.6 mg/dL (7-18)
[2021-09-16 10:33] LABS: CREATININE 1.1 mg/dL (0.55-1.3); URIC ACID 4.7 mg/dL (2.6-7.2)
[2021-09-16 10:34] LABS: BILIRUBIN,DIRECT 0.2 mg/dL (0.0-0.2); TOT PROT 6.2 g/dl (6.4-8.2)
[2021-09-16] MEDS ORDERED: SODIUM CHLORIDE IV ONE (11:00)
[2021-09-16] MEDS ORDERED: ELOTUZUMAB IV ONE (11:00)
[2021-09-16 11:12] LABS: ANISOCYTOSIS 0; HELMET CELLS 0; HOWELL-JOLLY BODIES 0; MACROCYTOSIS 0; OVALOCYTE 0; PLATELET ESTIMATE DECREASED; ROULEAU 0; SICKELED CELLS 0; TARGET CELLS 0; TEAR DROP CELLS 0; TOXIC GRANULATION 0
[2021-09-16 13:44] VITALS: TEMP 98.2
[2021-09-16 17:44] VITALS: BP 123/59; PULSE 78
[2021-09-18 18:07] LABS: FREE KAPPA,SERUM 17.1 mg/L (3.3-19.4)
[2021-09-19 12:08] LABS: FREE KAP CHN UR 2.76 mg/L (0.63-113.79); KAPPA LAMBDA RATIO URIN 2.21 (1.03-31.76)
== END 2021-09-16 15:45 | disposition home or self-care (01) ==
LOC: JONCCHEMO 07:15
PROVIDERS: ATTEND Internal Medicine Hematology & Oncology
DX: Z51.11 Encounter for antineoplastic chemotherapy (principal); C90.00 Multiple myeloma not having achieved remission
CPT/HCPCS: 36415; 80048; 80076; 82232; 82784; 83615; 83735; 83883; 84155; 84165; 84550; 85025; 86335; 96367; 96413; J9176

== ENCOUNTER 2021-10-14 07:24 | Day surgery (SDC) | payer OTHER, BC ==
[2021-10-14 09:31] LABS: BASO % 1.1 % (0-2.0); EOS % 2.2 % (0-4.5); HEMATOCRIT 42.9 % (35.4-49); HEMOGLOBIN 14.3 GM/dL (11.7-16.9); LYMPH % 8.9 % (8-40); MCH 32.7 pg (25.7-33.7); MCHC 33.4 g/dl (32.0-35.9); MEAN CELL VOLUME 97.9 fl (80-96); MEAN PLT VOLUME 7.2 fl (7.5-11.1); MONO % 8.3 % (3.8-10.2); NEUT % 79.5 % (42.8-82.8); PLATELET COUNT 164 10^3/uL (134-434); RBC 4.38 M/mm3 (4.00-5.60); RDW 15.5 % (11.9-15.9); WHITE BLOOD COUNT 4.3 K/mm3 (4.0-10.0)
[2021-10-14 09:54] LABS: BLOOD UREA NITROGEN 17.5 mg/dL (7-18); CALCIUM 9.1 mg/dL (8.5-10.1)
[2021-10-14 09:57] LABS: BILIRUBIN,DIRECT 0.2 mg/dL (0.0-0.2); TOT PROT 6.3 g/dl (6.4-8.2)
[2021-10-14 09:58] LABS: CREATININE 1.3 mg/dL (0.55-1.3); URIC ACID 4.9 mg/dL (2.6-7.2)
[2021-10-14 09:59] LABS: BILIRUBIN,TOTAL 0.8 mg/dL (0.2-1)
[2021-10-14] MEDS ORDERED: DEXAMETHASONE SODIUM PHOSPHATE 12 MG, DIPHENHYDRAMINE 50 MG in SODIUM CHLORIDE 100 ML IVPB ONE (10:00)
[2021-10-14] MEDS ORDERED: ACETAMINOPHEN 325 MG TABLET (FP) PO ONE (10:00)
[2021-10-14] MEDS ORDERED: FAMOTIDINE 20 MG/50 ML IVPB 20 MG/50 ML MG IVPB ONE (10:00)
[2021-10-14 10:03] VITALS: BP 138/88; PULSE 64; TEMP 98.1
[2021-10-14] MEDS ORDERED: ELOTUZUMAB IV ONE (10:30)
[2021-10-14] MEDS ORDERED: SODIUM CHLORIDE IV ONE (10:30)
[2021-10-15 18:09] LABS: FREE KAPPA,SERUM 17.9 mg/L (3.3-19.4)
[2021-10-16 07:07] LABS: FREE KAP CHN UR 2.69 mg/L (0.63-113.79); KAPPA LAMBDA RATIO URIN 3.28 (1.03-31.76)
[2021-10-16 08:07] LABS: BETA-2-MICROGLOBULIN 1.5 mg/L (0.6-2.4)
== END 2021-10-14 13:40 | disposition home or self-care (01) ==
LOC: JONCCHEMO 07:24
PROVIDERS: ATTEND Internal Medicine Hematology & Oncology
DX: Z51.11 Encounter for antineoplastic chemotherapy (principal); C90.00 Multiple myeloma not having achieved remission
CPT/HCPCS: 36415; 80048; 80076; 82232; 82784; 83615; 83735; 83883; 84155; 84165; 84550; 85025; 86335; 96367; 96375; 96413; J9176

== ENCOUNTER 2021-11-11 07:13 | Day surgery (SDC) | payer OTHER, BC ==
[2021-11-11 09:28] LABS: BASO % 2.2 % (0-2.0); EOS % 4.5 % (0-4.5); HEMATOCRIT 39.8 % (35.4-49); HEMOGLOBIN 13.7 GM/dL (11.7-16.9); MCH 33.5 pg (25.7-33.7); MCHC 34.5 g/dl (32.0-35.9); MEAN PLT VOLUME 7.3 fl (7.5-11.1); MONO % 13.1 % (3.8-10.2); NEUT % 67.2 % (42.8-82.8); PLATELET COUNT 165 10^3/uL (134-434); RDW 15.5 % (11.9-15.9); WHITE BLOOD COUNT 3.3 K/mm3 (4.0-10.0)
[2021-11-11] MEDS ORDERED: DEXAMETHASONE SODIUM PHOSPHATE 12 MG, DIPHENHYDRAMINE 50 MG in SODIUM CHLORIDE 100 ML IVPB ONE (09:30)
[2021-11-11] MEDS ORDERED: FAMOTIDINE 20 MG/50 ML IVPB 20 MG/50 ML MG IVPB ONE (09:30)
[2021-11-11] MEDS ORDERED: ACETAMINOPHEN 325 MG TABLET (FP) PO ONE (09:30)
[2021-11-11 09:58] LABS: CALCIUM 9.1 mg/dL (8.5-10.1)
[2021-11-11 09:59] LABS: ALBUMIN 3.8 g/dl (3.4-5.0); BLOOD UREA NITROGEN 18.6 mg/dL (7-18); MAGNESIUM 2.1 mg/dL (1.8-2.4)
[2021-11-11] MEDS ORDERED: ELOTUZUMAB IV ONE (10:00)
[2021-11-11] MEDS ORDERED: SODIUM CHLORIDE IV ONE (10:00)
[2021-11-11 10:01] LABS: BILIRUBIN,DIRECT 0.2 mg/dL (0.0-0.2); URIC ACID 4.5 mg/dL (2.6-7.2)
[2021-11-11 10:02] LABS: CREATININE 1.1 mg/dL (0.55-1.3)
[2021-11-11 10:03] LABS: TOT PROT 6.1 g/dl (6.4-8.2)
[2021-11-11 10:04] LABS: BILIRUBIN,TOTAL 0.6 mg/dL (0.2-1)
[2021-11-11 15:51] VITALS: TEMP 98.4
[2021-11-11 16:12] VITALS: BP 127/62; PULSE 71
[2021-11-13 07:11] LABS: BETA-2-MICROGLOBULIN 1.7 mg/L (0.6-2.4)
[2021-11-13 15:08] LABS: FREE KAP CHN UR 5.7 mg/L (1.17-86.46); KAPPA LAMBDA RATIO URIN 3.06 (1.83-14.26)
== END 2021-11-11 13:30 | disposition home or self-care (01) ==
LOC: JONCCHEMO 07:13
PROVIDERS: ATTEND Internal Medicine Hematology & Oncology
DX: Z51.11 Encounter for antineoplastic chemotherapy (principal); C90.00 Multiple myeloma not having achieved remission
CPT/HCPCS: 36415; 80048; 80076; 82232; 82784; 83615; 83735; 83883; 84155; 84165; 84550; 85025; 86335; 96367; 96413; J9176

== ENCOUNTER 2021-12-09 06:58 | Day surgery (SDC) | payer OTHER, BC ==
[2021-12-09] MEDS ORDERED: ACETAMINOPHEN 325 MG TABLET (FP) PO ONE (10:00)
[2021-12-09] MEDS ORDERED: DEXAMETHASONE SODIUM PHOSPHATE 12 MG, DIPHENHYDRAMINE 50 MG in SODIUM CHLORIDE 100 ML IVPB ONE (10:00)
[2021-12-09] MEDS ORDERED: FAMOTIDINE 20 MG/50 ML IVPB 20 MG/50 ML MG IVPB ONE (10:00)
[2021-12-09 10:22] LABS: BASO % 2.1 % (0-2.0); EOS % 5.6 % (0-4.5); HEMATOCRIT 41.4 % (35.4-49); HEMOGLOBIN 13.8 GM/dL (11.7-16.9); LYMPH % 15.4 % (8-40); MCH 32.6 pg (25.7-33.7); MCHC 33.4 g/dl (32.0-35.9); MEAN CELL VOLUME 97.5 fl (80-96); MEAN PLT VOLUME 7.5 fl (7.5-11.1); MONO % 16.1 % (3.8-10.2); NEUT % 60.8 % (42.8-82.8); PLATELET COUNT 166 10^3/uL (134-434); RBC 4.24 M/mm3 (4.00-5.60); RDW 14.6 % (11.9-15.9); WHITE BLOOD COUNT 3.5 K/mm3 (4.0-10.0)
[2021-12-09] MEDS ORDERED: ELOTUZUMAB IV ONE (10:30)
[2021-12-09] MEDS ORDERED: SODIUM CHLORIDE IV ONE (10:30)
[2021-12-09 10:47] LABS: CALCIUM 9.1 mg/dL (8.5-10.1)
[2021-12-09 10:48] LABS: BLOOD UREA NITROGEN 18.2 mg/dL (7-18)
[2021-12-09 10:50] LABS: BILIRUBIN,DIRECT 0.2 mg/dL (0.0-0.2)
[2021-12-09 10:51] LABS: CREATININE 1.1 mg/dL (0.55-1.3)
[2021-12-09 10:52] LABS: BILIRUBIN,TOTAL 0.6 mg/dL (0.2-1); TOT PROT 6.3 g/dl (6.4-8.2)
[2021-12-09 10:56] LABS: MAGNESIUM 2.3 mg/dL (1.8-2.4)
[2021-12-09 15:30] VITALS: TEMP 98
[2021-12-09 17:38] VITALS: BP 137/68; PULSE 76
[2021-12-10 17:06] LABS: BETA-2-MICROGLOBULIN 1.8 mg/L (0.6-2.4)
[2021-12-10 18:07] LABS: FREE KAPPA,SERUM 18.5 mg/L (3.3-19.4)
[2021-12-11 06:08] LABS: FREE KAP CHN UR 3.53 mg/L (1.17-86.46); KAPPA LAMBDA RATIO URIN 1.92 (1.83-14.26)
== END 2021-12-09 14:00 | disposition home or self-care (01) ==
LOC: JONCCHEMO 06:58
PROVIDERS: ATTEND Internal Medicine Hematology & Oncology
DX: Z51.11 Encounter for antineoplastic chemotherapy (principal); C90.00 Multiple myeloma not having achieved remission
CPT/HCPCS: 36415; 80053; 80076; 82232; 82784; 83615; 83735; 83883; 84155; 84165; 84550; 85025; 86335; 96367; 96413; J9176

== ENCOUNTER 2022-01-07 06:41 | Day surgery (SDC) | payer OTHER, BC ==
[2022-01-07] MEDS ORDERED: DEXAMETHASONE SODIUM PHOSPHATE 12 MG, DIPHENHYDRAMINE 50 MG in SODIUM CHLORIDE 100 ML IVPB ONE (09:30)
[2022-01-07] MEDS ORDERED: FAMOTIDINE 20 MG/50 ML IVPB 20 MG/50 ML MG IVPB ONE (09:30)
[2022-01-07] MEDS ORDERED: ACETAMINOPHEN 325 MG TABLET (FP) PO ONE (09:30)
[2022-01-07 09:41] LABS: HEMATOCRIT 39.1 % (35.4-49); HEMOGLOBIN 13.6 GM/dL (11.7-16.9); LYMPH % 13.7 % (8-40); MCH 33.8 pg (25.7-33.7); MCHC 34.7 g/dl (32.0-35.9); MEAN CELL VOLUME 97.4 fl (80-96); MEAN PLT VOLUME 6.9 fl (7.5-11.1); NEUT % 65.8 % (42.8-82.8); PLATELET COUNT 181 10^3/uL (134-434); RBC 4.02 M/mm3 (4.00-5.60); RDW 15.3 % (11.9-15.9); WHITE BLOOD COUNT 3.5 K/mm3 (4.0-10.0)
[2022-01-07 09:42] LABS: BASO % 1.1 % (0-2.0); MONO % 14.4 % (3.8-10.2)
[2022-01-07 09:52] LABS: MAGNESIUM 2.1 mg/dL (1.8-2.4)
[2022-01-07 09:53] LABS: CALCIUM 8.8 mg/dL (8.5-10.1)
[2022-01-07 09:55] LABS: BLOOD UREA NITROGEN 18.2 mg/dL (7-18)
[2022-01-07 09:56] LABS: URIC ACID 4.6 mg/dL (2.6-7.2)
[2022-01-07 09:57] LABS: BILIRUBIN,DIRECT 0.2 mg/dL (0.0-0.2); CREATININE 1.1 mg/dL (0.55-1.3)
[2022-01-07 10:00] LABS: BILIRUBIN,TOTAL 0.8 mg/dL (0.2-1)
[2022-01-07] MEDS ORDERED: ELOTUZUMAB IV ONE (10:00)
[2022-01-07] MEDS ORDERED: SODIUM CHLORIDE IV ONE (10:00)
[2022-01-07 17:31] VITALS: TEMP 98.1
[2022-01-07 17:44] VITALS: BP 135/69; PULSE 74
[2022-01-08 18:12] LABS: FREE KAPPA,SERUM 17.2 mg/L (3.3-19.4)
[2022-01-09 06:07] LABS: FREE KAP CHN UR 5.75 mg/L (1.17-86.46); KAPPA LAMBDA RATIO URIN 4.23 (1.83-14.26)
[2022-01-09 07:07] LABS: BETA-2-MICROGLOBULIN 1.9 mg/L (0.6-2.4)
== END 2022-01-07 13:30 | disposition home or self-care (01) ==
LOC: JONCCHEMO 06:41
PROVIDERS: ATTEND Internal Medicine Hematology & Oncology
PROC: 3E03305 Introduction of Other Antineoplastic into Peripheral Vein, Percutaneous Approach (ICD-10-PCS; principal; 2022-01-07)
PROC: 3E033GC Introduction of Other Therapeutic Substance into Peripheral Vein, Percutaneous Approach (ICD-10-PCS; 2022-01-07)
DX: Z51.11 Encounter for antineoplastic chemotherapy (principal); C90.00 Multiple myeloma not having achieved remission
CPT/HCPCS: 36415; 80048; 80076; 82232; 82784; 83615; 83735; 83883; 84155; 84165; 84550; 85025; 86335; 96367; 96413; J9176

== ENCOUNTER 2022-02-03 07:30 | Day surgery (SDC) | payer OTHER, BC ==
[2022-02-03] MEDS ORDERED: ACETAMINOPHEN 325 MG TABLET (FP) PO ONE (10:00)
[2022-02-03] MEDS ORDERED: DEXAMETHASONE SODIUM PHOSPHATE 12 MG, DIPHENHYDRAMINE 50 MG in SODIUM CHLORIDE 100 ML IVPB ONE (10:00)
[2022-02-03] MEDS ORDERED: FAMOTIDINE 20 MG/50 ML IVPB 20 MG/50 ML MG IVPB ONE (10:00)
[2022-02-03 10:25] LABS: BASO % 2.5 % (0-2.0); EOS % 3.6 % (0-4.5); HEMATOCRIT 40.1 % (35.4-49); HEMOGLOBIN 13.9 GM/dL (11.7-16.9); LYMPH % 14.8 % (8-40); MCH 33.7 pg (25.7-33.7); MCHC 34.7 g/dl (32.0-35.9); MEAN CELL VOLUME 97.4 fl (80-96); MEAN PLT VOLUME 7.3 fl (7.5-11.1); MONO % 13.1 % (3.8-10.2); PLATELET COUNT 155 10^3/uL (134-434); RBC 4.12 M/mm3 (4.00-5.60); RDW 15.2 % (11.9-15.9); WHITE BLOOD COUNT 2.9 K/mm3 (4.0-10.0)
[2022-02-03] MEDS ORDERED: SODIUM CHLORIDE IV ONE (10:30)
[2022-02-03] MEDS ORDERED: ELOTUZUMAB IV ONE (10:30)
[2022-02-03 10:52] LABS: BLOOD UREA NITROGEN 15.8 mg/dL (7-18); CALCIUM 8.6 mg/dL (8.5-10.1)
[2022-02-03 10:53] LABS: ALBUMIN 3.9 g/dl (3.4-5.0); MAGNESIUM 2.1 mg/dL (1.8-2.4)
[2022-02-03 10:55] LABS: URIC ACID 4.2 mg/dL (2.6-7.2)
[2022-02-03 10:56] LABS: BILIRUBIN,DIRECT 0.2 mg/dL (0.0-0.2)
[2022-02-03 10:57] LABS: BILIRUBIN,TOTAL 0.6 mg/dL (0.2-1); TOT PROT 6.1 g/dl (6.4-8.2)
[2022-02-03 16:19] VITALS: TEMP 98.4
[2022-02-03 16:23] VITALS: BP 135/68; PULSE 63
[2022-02-04 18:07] LABS: FREE KAPPA,SERUM 16.4 mg/L (3.3-19.4)
[2022-02-05 07:07] LABS: BETA-2-MICROGLOBULIN 1.9 mg/L (0.6-2.4)
== END 2022-02-03 14:45 | disposition home or self-care (01) ==
LOC: JONCCHEMO 07:30
PROVIDERS: ATTEND Internal Medicine Hematology & Oncology
DX: Z51.11 Encounter for antineoplastic chemotherapy (principal); C90.00 Multiple myeloma not having achieved remission
CPT/HCPCS: 36415; 80048; 80076; 82232; 82784; 83615; 83735; 83883; 84155; 84165; 84550; 85025; 86335; 96367; 96413; J9176

== ENCOUNTER 2022-03-03 06:22 | Day surgery (SDC) | payer OTHER, BC ==
[2022-03-03] MEDS ORDERED: ACETAMINOPHEN 325 MG TABLET (FP) PO ONE (09:30)
[2022-03-03] MEDS ORDERED: FAMOTIDINE 20 MG/50 ML IVPB 20 MG/50 ML MG IVPB ONE (09:30)
[2022-03-03] MEDS ORDERED: DEXAMETHASONE SODIUM PHOSPHATE 12 MG, DIPHENHYDRAMINE 50 MG in SODIUM CHLORIDE 100 ML IVPB ONE (09:30)
[2022-03-03] MEDS ORDERED: ELOTUZUMAB IV ONE (10:00)
[2022-03-03] MEDS ORDERED: SODIUM CHLORIDE IV ONE (10:00)
[2022-03-03 10:38] LABS: BASO % 2.2 % (0-2.0); EOS % 3.3 % (0-4.5); HEMATOCRIT 40.2 % (35.4-49); LYMPH % 14.2 % (8-40); MCH 33.5 pg (25.7-33.7); MCHC 34.7 g/dl (32.0-35.9); MEAN CELL VOLUME 96.6 fl (80-96); MEAN PLT VOLUME 7.3 fl (7.5-11.1); NEUT % 66.3 % (42.8-82.8); PLATELET COUNT 150 10^3/uL (134-434); RBC 4.17 M/mm3 (4.00-5.60); RDW 14.7 % (11.9-15.9); WHITE BLOOD COUNT 3.2 K/mm3 (4.0-10.0)
[2022-03-03 10:58] LABS: BLOOD UREA NITROGEN 16.4 mg/dL (7-18); CALCIUM 8.5 mg/dL (8.5-10.1)
[2022-03-03 10:59] LABS: ALBUMIN 3.8 g/dl (3.4-5.0); MAGNESIUM 2.2 mg/dL (1.8-2.4)
[2022-03-03 11:00] LABS: BILIRUBIN,DIRECT 0.3 mg/dL (0.0-0.2)
[2022-03-03 11:03] LABS: BILIRUBIN,TOTAL 0.8 mg/dL (0.2-1)
[2022-03-03 11:04] LABS: TOT PROT 6.1 g/dl (6.4-8.2)
[2022-03-03 18:06] VITALS: RESP 18; TEMP 98.3
[2022-03-03 18:09] VITALS: BP 133/71; PULSE 44
[2022-03-04 18:07] LABS: FREE KAPPA,SERUM 17.5 mg/L (3.3-19.4)
[2022-03-05 06:05] LABS: FREE KAP CHN UR 7.42 mg/L (1.17-86.46); KAPPA LAMBDA RATIO URIN 4.22 (1.83-14.26)
[2022-03-05 08:07] LABS: BETA-2-MICROGLOBULIN 1.9 mg/L (0.6-2.4)
== END 2022-03-03 14:00 | disposition home or self-care (01) ==
LOC: JONCCHEMO 06:22
PROVIDERS: ATTEND Internal Medicine Hematology & Oncology
DX: Z51.11 Encounter for antineoplastic chemotherapy (principal); C90.00 Multiple myeloma not having achieved remission
CPT/HCPCS: 36415; 80048; 80076; 82232; 82784; 83615; 83735; 83883; 84155; 84165; 85025; 86335; 86769; 96367; 96413; J9176

== ENCOUNTER 2022-03-30 07:47 | Day surgery (SDC) | payer OTHER, BC ==
[2022-03-30 09:36] LABS: BASO % 1.9 % (0-2.0); HEMATOCRIT 41.5 % (35.4-49); HEMOGLOBIN 13.7 GM/dL (11.7-16.9); LYMPH % 13.5 % (8-40); MCH 32.3 pg (25.7-33.7); MCHC 33.1 g/dl (32.0-35.9); MEAN CELL VOLUME 97.6 fl (80-96); MEAN PLT VOLUME 7.2 fl (7.5-11.1); MONO % 12.1 % (3.8-10.2); NEUT % 67.5 % (42.8-82.8); PLATELET COUNT 156 10^3/uL (134-434); RBC 4.25 M/mm3 (4.00-5.60); RDW 15.5 % (11.9-15.9); WHITE BLOOD COUNT 3.1 K/mm3 (4.0-10.0)
[2022-03-30 09:50] LABS: CALCIUM 8.7 mg/dL (8.5-10.1)
[2022-03-30 09:51] LABS: ALBUMIN 3.7 g/dl (3.4-5.0); BLOOD UREA NITROGEN 19.3 mg/dL (7-18); MAGNESIUM 2.1 mg/dL (1.8-2.4)
[2022-03-30 09:53] LABS: BILIRUBIN,DIRECT 0.3 mg/dL (0.0-0.2); URIC ACID 4.5 mg/dL (2.6-7.2)
[2022-03-30 09:54] LABS: CREATININE 1.1 mg/dL (0.55-1.3)
[2022-03-30 09:55] LABS: TOT PROT 5.9 g/dl (6.4-8.2)
[2022-03-30 09:57] LABS: BILIRUBIN,TOTAL 0.7 mg/dL (0.2-1)
[2022-03-30] MEDS ORDERED: DEXAMETHASONE SODIUM PHOSPHATE 12 MG, DIPHENHYDRAMINE 50 MG in SODIUM CHLORIDE 100 ML IVPB ONE (10:00)
[2022-03-30] MEDS ORDERED: ACETAMINOPHEN 325 MG TABLET (FP) PO ONE (10:00)
[2022-03-30] MEDS ORDERED: FAMOTIDINE 20 MG/50 ML IVPB 20 MG/50 ML MG IVPB ONE (10:00)
[2022-03-30] MEDS ORDERED: SODIUM CHLORIDE IV ONE (10:30)
[2022-03-30] MEDS ORDERED: ELOTUZUMAB IV ONE (10:30)
[2022-03-30 16:17] VITALS: RESP 18; TEMP 98.4
[2022-03-30 16:20] VITALS: BP 144/68; PULSE 74
[2022-03-31 17:08] LABS: FREE KAPPA,SERUM 18.5 mg/L (3.3-19.4)
[2022-04-01 16:08] LABS: FREE KAP CHN UR 15.12 mg/L (1.17-86.46); KAPPA LAMBDA RATIO URIN 6.46 (1.83-14.26)
[2022-04-01 16:08] LABS: BETA-2-MICROGLOBULIN 1.9 mg/L (0.6-2.4)
== END 2022-03-30 13:00 | disposition home or self-care (01) ==
LOC: JONCCHEMO 07:47
PROVIDERS: ATTEND Internal Medicine Hematology & Oncology
DX: Z51.11 Encounter for antineoplastic chemotherapy (principal); C90.00 Multiple myeloma not having achieved remission
CPT/HCPCS: 36415; 80048; 80076; 82232; 82784; 83615; 83735; 83883; 84155; 84165; 84550; 85025; 86335; 96367; 96413; J9176

== ENCOUNTER 2022-04-28 09:02 | Day surgery (SDC) | payer OTHER, BC ==
[2022-04-28] MEDS ORDERED: DEXAMETHASONE SODIUM PHOSPHATE 12 MG, DIPHENHYDRAMINE 50 MG in SODIUM CHLORIDE 100 ML IVPB ONE (09:30)
[2022-04-28] MEDS ORDERED: FAMOTIDINE 20 MG/50 ML IVPB 20 MG/50 ML MG IVPB ONE (09:30)
[2022-04-28] MEDS ORDERED: ACETAMINOPHEN 325 MG TABLET (FP) PO ONE (09:30)
[2022-04-28 09:55] LABS: BASO % 2.4 % (0-2.0); EOS % 3.8 % (0-4.5); HEMATOCRIT 40.8 % (35.4-49); HEMOGLOBIN 13.9 GM/dL (11.7-16.9); LYMPH % 13.2 % (8-40); MCH 33.1 pg (25.7-33.7); MCHC 34.2 g/dl (32.0-35.9); MEAN CELL VOLUME 96.7 fl (80-96); MEAN PLT VOLUME 7.4 fl (7.5-11.1); NEUT % 67.6 % (42.8-82.8); PLATELET COUNT 176 10^3/uL (134-434); RBC 4.22 M/mm3 (4.00-5.60); RDW 15.5 % (11.9-15.9); WHITE BLOOD COUNT 3.4 K/mm3 (4.0-10.0)
[2022-04-28] MEDS ORDERED: ELOTUZUMAB IV ONE (10:00)
[2022-04-28] MEDS ORDERED: SODIUM CHLORIDE IV ONE (10:00)
[2022-04-28 10:08] LABS: ALBUMIN 3.8 g/dl (3.4-5.0); BLOOD UREA NITROGEN 17.9 mg/dL (7-18); CALCIUM 8.6 mg/dL (8.5-10.1); MAGNESIUM 2.2 mg/dL (1.8-2.4)
[2022-04-28 10:11] LABS: CREATININE 1.1 mg/dL (0.55-1.3); URIC ACID 4.9 mg/dL (2.6-7.2)
[2022-04-28 10:12] LABS: TOT PROT 6.2 g/dl (6.4-8.2)
[2022-04-28 10:13] LABS: BILIRUBIN,TOTAL 0.8 mg/dL (0.2-1)
[2022-04-28 14:21] VITALS: TEMP 98.2
[2022-04-28 14:45] VITALS: BP 128/70; PULSE 77; RESP 20
[2022-04-29 18:07] LABS: FREE KAPPA,SERUM 18.3 mg/L (3.3-19.4)
[2022-04-30 04:48] LABS: FREE KAP CHN UR 7.47 mg/L (1.17-86.46); KAPPA LAMBDA RATIO URIN 4.47 (1.83-14.26)
[2022-04-30 07:06] LABS: BETA-2-MICROGLOBULIN 1.9 mg/L (0.6-2.4)
== END 2022-04-28 13:15 | disposition home or self-care (01) ==
LOC: JONCCHEMO 09:02
PROVIDERS: ATTEND Internal Medicine Hematology & Oncology
DX: Z51.11 Encounter for antineoplastic chemotherapy (principal); C90.00 Multiple myeloma not having achieved remission
CPT/HCPCS: 36415; 80053; 82232; 82784; 83615; 83735; 83883; 84155; 84165; 84550; 85025; 86335; 96367; 96413; J9176

== ENCOUNTER 2022-06-02 08:59 | Day surgery (SDC) | payer OTHER, BC ==
[2022-06-02] MEDS ORDERED: DEXAMETHASONE SODIUM PHOSPHATE 12 MG, DIPHENHYDRAMINE 50 MG in SODIUM CHLORIDE 100 ML IVPB ONE (09:30)
[2022-06-02] MEDS ORDERED: FAMOTIDINE 20 MG/50 ML IVPB 20 MG/50 ML MG IVPB ONE (09:30)
[2022-06-02] MEDS ORDERED: ACETAMINOPHEN 325 MG TABLET (FP) PO ONE (09:30)
[2022-06-02 09:45] LABS: BASO % 1.3 % (0-2.0); HEMOGLOBIN 14.1 GM/dL (11.7-16.9); LYMPH % 8.7 % (8-40); MCH 32.3 pg (25.7-33.7); MCHC 32.8 g/dl (32.0-35.9); MEAN CELL VOLUME 98.4 fl (80-96); MONO % 5.8 % (3.8-10.2); NEUT % 79.2 % (42.8-82.8); PLATELET COUNT 201 10^3/uL (134-434); RBC 4.37 M/mm3 (4.00-5.60); RDW 15.7 % (11.9-15.9); WHITE BLOOD COUNT 4.5 K/mm3 (4.0-10.0)
[2022-06-02] MEDS ORDERED: SODIUM CHLORIDE IV ONE (10:00)
[2022-06-02] MEDS ORDERED: ELOTUZUMAB IV ONE (10:00)
[2022-06-02 10:12] LABS: ALBUMIN 3.5 g/dl (3.4-5.0); CALCIUM 9.2 mg/dL (8.5-10.1)
[2022-06-02 10:13] LABS: MAGNESIUM 2.1 mg/dL (1.8-2.4)
[2022-06-02 10:15] LABS: BILIRUBIN,DIRECT 0.2 mg/dL (0.0-0.2); BLOOD UREA NITROGEN 18.2 mg/dL (7-18); URIC ACID 4.5 mg/dL (2.6-7.2)
[2022-06-02 10:17] LABS: BILIRUBIN,TOTAL 0.8 mg/dL (0.2-1); TOT PROT 5.6 g/dl (6.4-8.2)
[2022-06-02 15:37] VITALS: RESP 18; TEMP 98.2
[2022-06-02 15:45] VITALS: BP 106/48; PULSE 74
[2022-06-03 17:06] LABS: FREE KAPPA,SERUM 15.1 mg/L (3.3-19.4)
[2022-06-04 05:11] LABS: FREE KAP CHN UR 26.49 mg/L (1.17-86.46); KAPPA LAMBDA RATIO URIN 4.37 (1.83-14.26)
[2022-06-04 07:07] LABS: IMMUNOGLOBULIN D < 1.30 mg/dL (<14.11)
[2022-06-05 07:07] LABS: BETA-2-MICROGLOBULIN 1.7 mg/L (0.6-2.4)
== END 2022-06-02 14:00 | disposition home or self-care (01) ==
LOC: JONCCHEMO 08:59
PROVIDERS: ATTEND Internal Medicine Hematology & Oncology
DX: Z51.11 Encounter for antineoplastic chemotherapy (principal); C90.00 Multiple myeloma not having achieved remission
CPT/HCPCS: 36415; 80048; 80076; 82232; 82784; 82785; 83615; 83735; 83883; 84155; 84165; 84550; 85025; 86335; 96367; 96413; J9176

== ENCOUNTER 2022-06-30 08:52 | Day surgery (SDC) | payer OTHER, BC ==
[2022-06-30 09:47] LABS: BASO % 2.1 % (0-2.0); EOS % 4.3 % (0-4.5); HEMATOCRIT 41.9 % (35.4-49); MCH 32.7 pg (25.7-33.7); MCHC 33.4 g/dl (32.0-35.9); MEAN CELL VOLUME 97.8 fl (80-96); MEAN PLT VOLUME 7.7 fl (7.5-11.1); MONO % 7.1 % (3.8-10.2); NEUT % 75.5 % (42.8-82.8); PLATELET COUNT 197 10^3/uL (134-434); RBC 4.28 M/mm3 (4.00-5.60); RDW 15.1 % (11.9-15.9); WHITE BLOOD COUNT 3.6 K/mm3 (4.0-10.0)
[2022-06-30] MEDS ORDERED: DEXAMETHASONE SODIUM PHOSPHATE 12 MG, DIPHENHYDRAMINE 50 MG in SODIUM CHLORIDE 100 ML IVPB ONE (10:00)
[2022-06-30] MEDS ORDERED: FAMOTIDINE 20 MG/50 ML IVPB 20 MG/50 ML MG IVPB ONE (10:00)
[2022-06-30] MEDS ORDERED: ACETAMINOPHEN 325 MG TABLET (FP) PO ONE (10:00)
[2022-06-30 10:08] LABS: ALBUMIN 3.7 g/dl (3.4-5.0); CALCIUM 8.3 mg/dL (8.5-10.1); MAGNESIUM 2.2 mg/dL (1.8-2.4)
[2022-06-30 10:10] LABS: BILIRUBIN,DIRECT 0.2 mg/dL (0.0-0.2)
[2022-06-30 10:12] LABS: BILIRUBIN,TOTAL 0.9 mg/dL (0.2-1)
[2022-06-30] MEDS ORDERED: SODIUM CHLORIDE IV ONE (10:30)
[2022-06-30] MEDS ORDERED: ELOTUZUMAB IV ONE (10:30)
[2022-06-30 13:09] VITALS: RESP 18; TEMP 98.1
[2022-06-30 13:38] VITALS: BP 110/53; PULSE 71
[2022-07-01 17:06] LABS: FREE KAPPA,SERUM 19.8 mg/L (3.3-19.4)
[2022-07-02 07:07] LABS: BETA-2-MICROGLOBULIN 1.9 mg/L (0.6-2.4)
[2022-07-04 03:08] LABS: FREE KAP CHN UR 14.42 mg/L (1.17-86.46); KAPPA LAMBDA RATIO URIN 5.98 (1.83-14.26)
== END 2022-06-30 12:55 | disposition home or self-care (01) ==
LOC: JONCCHEMO 08:52
PROVIDERS: ATTEND Internal Medicine Hematology & Oncology
DX: Z51.11 Encounter for antineoplastic chemotherapy (principal); C90.00 Multiple myeloma not having achieved remission
CPT/HCPCS: 36415; 80048; 80076; 82232; 82784; 83615; 83735; 83883; 84155; 84165; 85025; 86335; 86769; 96367; 96413; J9176

== ENCOUNTER 2022-07-28 09:33 | Day surgery (SDC) | payer OTHER, BC ==
[~2022-07-28 09:33] MED LIST changes: +ACETAMINOPHEN 325 MG TABLET (FP) PO ONE; +FAMOTIDINE 20 MG/50 ML IVPB 20 MG/50 ML MG IVPB ONE
[2022-07-28] MEDS ORDERED: ELOTUZUMAB IV ONE (10:00)
[2022-07-28] MEDS ORDERED: SODIUM CHLORIDE IV ONE (10:00)
[2022-07-28 10:08] LABS: BASO % 2.2 % (0-2.0); EOS % 5.8 % (0-4.5); HEMATOCRIT 42.7 % (35.4-49); HEMOGLOBIN 14.2 GM/dL (11.7-16.9); LYMPH % 12.3 % (8-40); MCH 32.4 pg (25.7-33.7); MCHC 33.2 g/dl (32.0-35.9); MEAN CELL VOLUME 97.8 fl (80-96); MEAN PLT VOLUME 7.6 fl (7.5-11.1); MONO % 7.9 % (3.8-10.2); NEUT % 71.8 % (42.8-82.8); PLATELET COUNT 178 10^3/uL (134-434); RBC 4.36 M/mm3 (4.00-5.60); RDW 15.2 % (11.9-15.9); WHITE BLOOD COUNT 3.2 K/mm3 (4.0-10.0)
[2022-07-28 10:27] LABS: BLOOD UREA NITROGEN 17.5 mg/dL (7-18); CALCIUM 8.8 mg/dL (8.5-10.1)
[2022-07-28 10:28] LABS: ALBUMIN 3.9 g/dl (3.4-5.0)
[2022-07-28 10:29] LABS: URIC ACID 4.9 mg/dL (2.6-7.2)
[2022-07-28 10:30] LABS: CREATININE 1.1 mg/dL (0.55-1.3); TOT PROT 6.2 g/dl (6.4-8.2)
[2022-07-28 10:32] LABS: BILIRUBIN,DIRECT 0.2 mg/dL (0.0-0.2)
[2022-07-28 10:33] LABS: BILIRUBIN,TOTAL 0.7 mg/dL (0.2-1)
[2022-07-28 17:29] VITALS: BP 150/72; PULSE 87; RESP 18; TEMP 98.3
[2022-07-29 17:08] LABS: FREE KAPPA,SERUM 20.5 mg/L (3.3-19.4)
[2022-07-30 03:10] LABS: FREE KAP CHN UR 4.59 mg/L (1.17-86.46); KAPPA LAMBDA RATIO URIN 4.29 (1.83-14.26)
[2022-07-30 16:09] LABS: BETA-2-MICROGLOBULIN 1.7 mg/L (0.6-2.4)
== END 2022-07-28 13:20 | disposition home or self-care (01) ==
LOC: JONCCHEMO 09:33
PROVIDERS: ATTEND Internal Medicine Hematology & Oncology
PROC: 3E03305 Introduction of Other Antineoplastic into Peripheral Vein, Percutaneous Approach (ICD-10-PCS; principal; 2022-07-28)
PROC: 3E033GC Introduction of Other Therapeutic Substance into Peripheral Vein, Percutaneous Approach (ICD-10-PCS; 2022-07-28)
DX: Z51.11 Encounter for antineoplastic chemotherapy (principal); C90.00 Multiple myeloma not having achieved remission
CPT/HCPCS: 36415; 80048; 80076; 82232; 82784; 83540; 83615; 83735; 83883; 84155; 84165; 84550; 85025; 86335; 96367; 96413; J9176

== ENCOUNTER 2022-08-25 10:12 | Day surgery (SDC) | payer OTHER, BC ==
[2022-08-25 10:03] LABS: HEMATOCRIT 41.2 % (35.4-49); HEMOGLOBIN 13.8 GM/dL (11.7-16.9); MCH 32.7 pg (25.7-33.7); MCHC 33.4 g/dl (32.0-35.9); MEAN CELL VOLUME 97.8 fl (80-96); MEAN PLT VOLUME 7.5 fl (7.5-11.1); PLATELET COUNT 185 10^3/uL (134-434); RBC 4.21 M/mm3 (4.00-5.60); RDW 15.3 % (11.9-15.9); WHITE BLOOD COUNT 2.8 K/mm3 (4.0-10.0)
[~2022-08-25 10:12] MED LIST changes: +ELOTUZUMAB IV ONE; +SODIUM CHLORIDE IV ONE
[2022-08-25 10:15] LABS: CALCIUM 8.8 mg/dL (8.5-10.1)
[2022-08-25 10:16] LABS: ALBUMIN 3.6 g/dl (3.4-5.0); BLOOD UREA NITROGEN 17.2 mg/dL (7-18)
[2022-08-25 10:19] LABS: BILIRUBIN,DIRECT 0.2 mg/dL (0.0-0.2); CREATININE 0.9 mg/dL (0.55-1.3); URIC ACID 4.4 mg/dL (2.6-7.2)
[2022-08-25 10:20] LABS: BILIRUBIN,TOTAL 0.7 mg/dL (0.2-1); TOT PROT 5.8 g/dl (6.4-8.2)
[2022-08-25 10:43] LABS: ANISOCYTOSIS 0; HELMET CELLS 0; HOWELL-JOLLY BODIES 0; MACROCYTOSIS 0; OVALOCYTE 0; ROULEAU 0; SICKELED CELLS 0; TARGET CELLS 0; TEAR DROP CELLS 0; TOXIC GRANULATION 0
[2022-08-25 17:13] VITALS: BP 145/73; PULSE 60; RESP 18; TEMP 97.8
[2022-08-26 18:10] LABS: FREE KAPPA,SERUM 20.2 mg/L (3.3-19.4)
[2022-08-27 14:08] LABS: BETA-2-MICROGLOBULIN 1.9 mg/L (0.6-2.4)
== END 2022-08-25 13:50 | disposition home or self-care (01) ==
LOC: JONCCHEMO 10:12
PROVIDERS: ATTEND Internal Medicine Hematology & Oncology
DX: Z51.11 Encounter for antineoplastic chemotherapy (principal); C90.00 Multiple myeloma not having achieved remission
CPT/HCPCS: 36415; 80048; 80076; 82232; 82784; 83615; 83735; 83883; 84155; 84165; 84550; 85025; 96367; 96413; J9176

== ENCOUNTER 2022-09-22 10:20 | Day surgery (SDC) | payer OTHER, BC ==
[~2022-09-22 10:20] MED LIST changes: -ELOTUZUMAB IV ONE; -SODIUM CHLORIDE IV ONE
[2022-09-22] MEDS ORDERED: SODIUM CHLORIDE IV ONE (10:30)
[2022-09-22] MEDS ORDERED: ELOTUZUMAB IV ONE (10:30)
[2022-09-22 11:33] LABS: EOS % 4.5 % (0-4.5); HEMOGLOBIN 13.5 GM/dL (11.7-16.9); LYMPH % 13.5 % (8-40); MCH 32.9 pg (25.7-33.7); MCHC 33.8 g/dl (32.0-35.9); MEAN CELL VOLUME 97.3 fl (80-96); MEAN PLT VOLUME 7.9 fl (7.5-11.1); MONO % 8.9 % (3.8-10.2); NEUT % 71.1 % (42.8-82.8); PLATELET COUNT 176 10^3/uL (134-434); RBC 4.11 M/mm3 (4.00-5.60); RDW 15.4 % (11.9-15.9); WHITE BLOOD COUNT 3.3 K/mm3 (4.0-10.0)
[2022-09-22 11:55] LABS: ALBUMIN 3.8 g/dl (3.4-5.0); MAGNESIUM 2.2 mg/dL (1.8-2.4)
[2022-09-22 11:57] LABS: BILIRUBIN,DIRECT 0.2 mg/dL (0.0-0.2)
[2022-09-22 11:59] LABS: BILIRUBIN,TOTAL 0.8 mg/dL (0.2-1)
[2022-09-22 17:21] VITALS: TEMP 98.3
[2022-09-22 17:37] VITALS: BP 129/67; PULSE 47; RESP 18
[2022-09-24 06:06] LABS: FREE KAP CHN UR 13.86 mg/L (1.17-86.46); KAPPA LAMBDA RATIO URIN 6.54 (1.83-14.26)
== END 2022-09-22 14:30 | disposition home or self-care (01) ==
LOC: JONCCHEMO 10:20
PROVIDERS: ATTEND Internal Medicine Hematology & Oncology
DX: Z51.11 Encounter for antineoplastic chemotherapy (principal); C90.00 Multiple myeloma not having achieved remission
CPT/HCPCS: 36415; 80048; 80076; 82232; 82784; 83615; 83735; 83883; 84155; 84165; 84439; 84443; 84481; 84550; 85025; 86335; 96367; 96413; J9176

== ENCOUNTER 2022-10-20 09:50 | Day surgery (SDC) | payer OTHER, BC ==
[2022-10-20] MEDS ORDERED: SODIUM CHLORIDE IV ONE (10:00)
[2022-10-20] MEDS ORDERED: ELOTUZUMAB IV ONE (10:00)
[2022-10-20 10:52] LABS: BASO % 1.7 % (0-2.0); EOS % 4.7 % (0-4.5); HEMATOCRIT 41.6 % (35.4-49); HEMOGLOBIN 13.7 GM/dL (11.7-16.9); LYMPH % 14.6 % (8-40); MCH 32.4 pg (25.7-33.7); MEAN CELL VOLUME 98.4 fl (80-96); MEAN PLT VOLUME 8.3 fl (7.5-11.1); MONO % 8.4 % (3.8-10.2); NEUT % 70.6 % (42.8-82.8); PLATELET COUNT 190 10^3/uL (134-434); RBC 4.23 M/mm3 (4.00-5.60); RDW 15.2 % (11.9-15.9); WHITE BLOOD COUNT 3.1 K/mm3 (4.0-10.0)
[2022-10-20 11:24] LABS: ALBUMIN 3.8 g/dl (3.4-5.0); BLOOD UREA NITROGEN 21.8 mg/dL (7-18); CALCIUM 9.2 mg/dL (8.5-10.1); MAGNESIUM 2.1 mg/dL (1.8-2.4)
[2022-10-20 11:27] LABS: BILIRUBIN,DIRECT 0.2 mg/dL (0.0-0.2)
[2022-10-20 11:29] LABS: BILIRUBIN,TOTAL 0.7 mg/dL (0.2-1)
[2022-10-20 11:58] LABS: URIC ACID 4.2 mg/dL (2.6-7.2)
[2022-10-20 15:32] VITALS: TEMP 98.1
[2022-10-20 15:45] VITALS: BP 124/59; PULSE 65; RESP 18
[2022-10-21 17:07] LABS: FREE KAPPA,SERUM 22.1 mg/L (3.3-19.4)
[2022-10-22 16:13] LABS: BETA-2-MICROGLOBULIN 1.8 mg/L (0.6-2.4)
[2022-10-23 06:08] LABS: FREE KAP CHN UR 11.71 mg/L (1.17-86.46); KAPPA LAMBDA RATIO URIN 5.5 (1.83-14.26)
== END 2022-10-20 15:00 | disposition home or self-care (01) ==
LOC: JONCCHEMO 09:50
PROVIDERS: ATTEND Internal Medicine Hematology & Oncology
DX: Z51.11 Encounter for antineoplastic chemotherapy (principal); C90.00 Multiple myeloma not having achieved remission
CPT/HCPCS: 36415; 80048; 80076; 82232; 82784; 83036; 83615; 83735; 83883; 84155; 84165; 84443; 84550; 85025; 86335; 96367; 96413; J9176

== ENCOUNTER 2022-11-17 10:00 | Day surgery (SDC) | payer OTHER, BC ==
[~2022-11-17 10:00] MED LIST changes: -DEXAMETHASONE SODIUM PHOSPHATE 12 MG, DIPHENHYDRAMINE 50 MG in SODIUM CHLORIDE 100 ML IVPB ONE
[2022-11-17] MEDS ORDERED: ELOTUZUMAB IV ONE (10:30)
[2022-11-17] MEDS ORDERED: SODIUM CHLORIDE IV ONE (10:30)
[2022-11-17 11:06] LABS: EOS % 11.1 % (0-4.5); HEMATOCRIT 38.4 % (35.4-49); HEMOGLOBIN 13.4 GM/dL (11.7-16.9); LYMPH % 17.8 % (8-40); MCH 33.4 pg (25.7-33.7); MCHC 34.9 g/dl (32.0-35.9); MEAN CELL VOLUME 95.6 fl (80-96); MEAN PLT VOLUME 8.2 fl (7.5-11.1); MONO % 11.1 % (3.8-10.2); PLATELET COUNT 175 10^3/uL (134-434); RBC 4.02 M/mm3 (4.00-5.60); RDW 15.1 % (11.9-15.9); WHITE BLOOD COUNT 2.7 K/mm3 (4.0-10.0)
[2022-11-17 11:36] LABS: CALCIUM 9.4 mg/dL (8.5-10.1)
[2022-11-17 11:37] LABS: ALBUMIN 3.9 g/dl (3.4-5.0); BLOOD UREA NITROGEN 21.7 mg/dL (7-18); MAGNESIUM 2.1 mg/dL (1.8-2.4)
[2022-11-17 11:39] LABS: URIC ACID 4.2 mg/dL (2.6-7.2)
[2022-11-17 11:40] LABS: BILIRUBIN,DIRECT 0.2 mg/dL (0.0-0.2)
[2022-11-17 11:41] LABS: BILIRUBIN,TOTAL 0.8 mg/dL (0.2-1)
[2022-11-17 11:42] LABS: TOT PROT 6.1 g/dl (6.4-8.2)
[2022-11-17 11:49] VITALS: RESP 20; TEMP 98.2
[2022-11-17] MEDS: DEXAMETHASONE SODIUM PHOSPHATE 12 MG, DIPHENHYDRAMINE 50 MG in SODIUM CHLORIDE 100 ML IVPB ONE ×2 (12:54→13:00)
[2022-11-17 14:57] VITALS: BP 140/72; PULSE 74
[2022-11-18 14:07] LABS: FREE KAPPA,SERUM 22.9 mg/L (3.3-19.4)
[2022-11-19 07:31] LABS: FREE KAP CHN UR 11.94 mg/L (1.17-86.46); KAPPA LAMBDA RATIO URIN 6.15 (1.83-14.26)
[2022-11-19 16:08] LABS: BETA-2-MICROGLOBULIN 1.8 mg/L (0.6-2.4)
== END 2022-11-17 14:55 | disposition home or self-care (01) ==
LOC: JONCCHEMO 10:00
PROVIDERS: ATTEND Internal Medicine Hematology & Oncology
PROC: 3E03305 Introduction of Other Antineoplastic into Peripheral Vein, Percutaneous Approach (ICD-10-PCS; principal; 2022-11-17)
PROC: 3E033GC Introduction of Other Therapeutic Substance into Peripheral Vein, Percutaneous Approach (ICD-10-PCS; 2022-11-17)
DX: Z51.11 Encounter for antineoplastic chemotherapy (principal); C90.00 Multiple myeloma not having achieved remission
CPT/HCPCS: 36415; 80048; 80076; 82232; 82784; 83615; 83735; 83883; 84155; 84165; 84550; 85025; 86335; 96367; 96413; J9176

== ENCOUNTER 2022-12-08 09:46 | Day surgery (SDC) | payer OTHER, BC ==
[2022-12-08] MEDS ORDERED: FAMOTIDINE 20 MG/50 ML IVPB 20 MG/50 ML MG IVPB ONE (10:00)
[2022-12-08] MEDS ORDERED: DEXAMETHASONE SODIUM PHOSPHATE 12 MG, DIPHENHYDRAMINE 50 MG in SODIUM CHLORIDE 100 ML IVPB ONE (10:00)
[2022-12-08] MEDS ORDERED: ACETAMINOPHEN 325 MG TABLET (FP) PO ONE (10:00)
[2022-12-08] MEDS ORDERED: ELOTUZUMAB IV ONE (10:30)
[2022-12-08] MEDS ORDERED: SODIUM CHLORIDE IV ONE (10:30)
[2022-12-08 10:35] LABS: BASO % 2.2 % (0-2.0); EOS % 3.8 % (0-4.5); HEMATOCRIT 37.7 % (35.4-49); HEMOGLOBIN 12.7 GM/dL (11.7-16.9); LYMPH % 15.5 % (8-40); MCH 32.5 pg (25.7-33.7); MCHC 33.6 g/dl (32.0-35.9); MEAN CELL VOLUME 96.6 fl (80-96); MEAN PLT VOLUME 7.6 fl (7.5-11.1); NEUT % 64.5 % (42.8-82.8); PLATELET COUNT 185 10^3/uL (134-434); RDW 15.5 % (11.9-15.9); WHITE BLOOD COUNT 2.7 K/mm3 (4.0-10.0)
[2022-12-08 10:55] LABS: POTASSIUM 4.4 mmol/L (3.5-5.1)
[2022-12-08 10:58] LABS: CALCIUM 9.1 mg/dL (8.5-10.1)
[2022-12-08 11:00] LABS: ALBUMIN 3.9 g/dl (3.4-5.0); BLOOD UREA NITROGEN 22.9 mg/dL (7-18); MAGNESIUM 2.2 mg/dL (1.8-2.4)
[2022-12-08 11:02] LABS: BILIRUBIN,DIRECT 0.2 mg/dL (0.0-0.2); CREATININE 1.1 mg/dL (0.55-1.3); URIC ACID 3.9 mg/dL (2.6-7.2)
[2022-12-08 11:04] LABS: BILIRUBIN,TOTAL 0.9 mg/dL (0.2-1); TOT PROT 6.1 g/dl (6.4-8.2)
[2022-12-08 15:48] VITALS: BP 133/77; PULSE 73; RESP 20; TEMP 98.2
[2022-12-09 17:12] LABS: FREE KAPPA,SERUM 23.3 mg/L (3.3-19.4)
[2022-12-10 07:17] LABS: FREE KAP CHN UR 10.85 mg/L (1.17-86.46); KAPPA LAMBDA RATIO URIN 4.84 (1.83-14.26)
[2022-12-10 08:09] LABS: BETA-2-MICROGLOBULIN 1.5 mg/L (0.6-2.4)
== END 2022-12-08 13:50 | disposition home or self-care (01) ==
LOC: JONCCHEMO 09:46
PROVIDERS: ATTEND Internal Medicine Hematology & Oncology
DX: Z51.11 Encounter for antineoplastic chemotherapy (principal); C90.00 Multiple myeloma not having achieved remission
CPT/HCPCS: 36415; 80048; 80076; 82232; 82784; 83615; 83735; 83883; 84155; 84165; 84550; 85025; 86335; 96367; 96413; J9176

== ENCOUNTER 2023-01-12 09:19 | Day surgery (SDC) | payer OTHER, BC ==
[2023-01-12] MEDS ORDERED: DEXAMETHASONE SODIUM PHOSPHATE 12 MG, DIPHENHYDRAMINE 50 MG in SODIUM CHLORIDE 100 ML IVPB ONE (10:00)
[2023-01-12] MEDS ORDERED: FAMOTIDINE 20 MG/50 ML IVPB 20 MG/50 ML MG IVPB ONE (10:00)
[2023-01-12] MEDS ORDERED: ACETAMINOPHEN 325 MG TABLET (FP) PO ONE (10:00)
[2023-01-12 10:19] LABS: BASO % 1.3 % (0-2.0); EOS % 3.4 % (0-4.5); HEMATOCRIT 42.5 % (35.4-49); HEMOGLOBIN 14.4 GM/dL (11.7-16.9); LYMPH % 15.3 % (8-40); MCH 32.5 pg (25.7-33.7); MCHC 33.8 g/dl (32.0-35.9); MEAN CELL VOLUME 96.3 fl (80-96); MEAN PLT VOLUME 7.6 fl (7.5-11.1); MONO % 6.4 % (3.8-10.2); NEUT % 73.6 % (42.8-82.8); PLATELET COUNT 190 10^3/uL (134-434); POTASSIUM 4.7 mmol/L (3.5-5.1); RBC 4.42 M/mm3 (4.00-5.60); RDW 15.5 % (11.9-15.9); WHITE BLOOD COUNT 3.9 K/mm3 (4.0-10.0)
[2023-01-12 10:22] LABS: BLOOD UREA NITROGEN 21.1 mg/dL (7-18); CALCIUM 9.3 mg/dL (8.5-10.1)
[2023-01-12 10:23] LABS: MAGNESIUM 2.3 mg/dL (1.8-2.4)
[2023-01-12 10:25] LABS: BILIRUBIN,DIRECT 0.2 mg/dL (0.0-0.2); CREATININE 1.1 mg/dL (0.55-1.3); URIC ACID 4.2 mg/dL (2.6-7.2)
[2023-01-12 10:27] LABS: BILIRUBIN,TOTAL 0.7 mg/dL (0.2-1); TOT PROT 6.3 g/dl (6.4-8.2)
[2023-01-12] MEDS ORDERED: ELOTUZUMAB IV ONE (10:30)
[2023-01-12] MEDS ORDERED: SODIUM CHLORIDE IV ONE (10:30)
[2023-01-12 16:54] VITALS: BP 142/71; PULSE 78; RESP 20; TEMP 97.7
[2023-01-13 17:11] LABS: FREE KAPPA,SERUM 25.5 mg/L (3.3-19.4)
[2023-01-14 08:12] LABS: BETA-2-MICROGLOBULIN 1.5 mg/L (0.6-2.4)
== END 2023-01-12 13:30 | disposition home or self-care (01) ==
LOC: JONCCHEMO 09:19 → J7W 09:25 → JONCCHEMO 13:30
PROVIDERS: ATTEND Internal Medicine Hematology & Oncology
DX: Z51.11 Encounter for antineoplastic chemotherapy (principal); C90.00 Multiple myeloma not having achieved remission
CPT/HCPCS: 36415; 80048; 80076; 82232; 82784; 83735; 83883; 84155; 84165; 84550; 85025; 86335; 96367; 96413; J9176

== ENCOUNTER 2023-02-11 08:52 | Day surgery (SDC) | payer OTHER, BC ==
[2023-02-11] MEDS ORDERED: ACETAMINOPHEN 325 MG TABLET (FP) PO ONE (09:30)
[2023-02-11] MEDS ORDERED: DEXAMETHASONE SODIUM PHOSPHATE 12 MG, DIPHENHYDRAMINE 50 MG in SODIUM CHLORIDE 100 ML IVPB ONE (09:30)
[2023-02-11] MEDS ORDERED: FAMOTIDINE 20 MG/50 ML IVPB 20 MG/50 ML MG IVPB ONE (09:30)
[2023-02-11 09:36] LABS: HEMATOCRIT 40.7 % (35.4-49); HEMOGLOBIN 13.5 GM/dL (11.7-16.9); LYMPH % 11.5 % (8-40); MCH 32.2 pg (25.7-33.7); MCHC 33.1 g/dl (32.0-35.9); MEAN CELL VOLUME 97.2 fl (80-96); MONO % 7.9 % (3.8-10.2); NEUT % 76.6 % (42.8-82.8); PLATELET COUNT 173 10^3/uL (134-434); RBC 4.18 M/mm3 (4.00-5.60); RDW 15.3 % (11.9-15.9); WHITE BLOOD COUNT 4.2 K/mm3 (4.0-10.0)
[2023-02-11 09:44] LABS: POTASSIUM 4.3 mmol/L (3.5-5.1)
[2023-02-11 09:47] LABS: ALBUMIN 3.8 g/dl (3.4-5.0); BLOOD UREA NITROGEN 18.6 mg/dL (7-18); MAGNESIUM 2.2 mg/dL (1.8-2.4)
[2023-02-11 09:49] LABS: BILIRUBIN,DIRECT 0.2 mg/dL (0.0-0.2); URIC ACID 4.1 mg/dL (2.6-7.2)
[2023-02-11 09:51] LABS: BILIRUBIN,TOTAL 0.6 mg/dL (0.2-1); TOT PROT 5.9 g/dl (6.4-8.2)
[2023-02-11] MEDS ORDERED: ELOTUZUMAB IV ONE (10:00)
[2023-02-11] MEDS ORDERED: SODIUM CHLORIDE IV ONE (10:00)
[2023-02-11 15:26] VITALS: BP 135/65; PULSE 80; RESP 16; TEMP 98.1
[2023-02-12 17:08] LABS: FREE KAPPA,SERUM 27.5 mg/L (3.3-19.4)
[2023-02-13 07:07] LABS: FREE KAP CHN UR 13.48 mg/L (1.17-86.46); KAPPA LAMBDA RATIO URIN 8.07 (1.83-14.26)
[2023-02-13 12:08] LABS: BETA-2-MICROGLOBULIN 1.8 mg/L (0.6-2.4)
== END 2023-02-11 14:00 | disposition home or self-care (01) ==
LOC: JONCCHEMO 08:52 → J7W 08:57 → JONCCHEMO 14:00
PROVIDERS: ATTEND Internal Medicine Hematology & Oncology
DX: Z51.11 Encounter for antineoplastic chemotherapy (principal); C90.00 Multiple myeloma not having achieved remission
CPT/HCPCS: 36415; 80048; 80076; 82232; 82784; 83615; 83735; 83883; 84155; 84165; 84550; 85025; 86335; 96367; 96413; J9176

== ENCOUNTER 2023-03-09 09:42 | Day surgery (SDC) | payer OTHER, BC ==
[2023-03-09] MEDS ORDERED: DEXAMETHASONE SODIUM PHOSPHATE 12 MG, DIPHENHYDRAMINE 50 MG in SODIUM CHLORIDE 100 ML IVPB ONE (10:00)
[2023-03-09] MEDS ORDERED: FAMOTIDINE 20 MG/50 ML IVPB 20 MG/50 ML MG IVPB ONE (10:00)
[2023-03-09] MEDS ORDERED: ACETAMINOPHEN 325 MG TABLET (FP) PO ONE (10:00)
[2023-03-09 10:29] LABS: BASO % 1.4 % (0-2.0); EOS % 4.1 % (0-4.5); HEMATOCRIT 41.8 % (35.4-49); LYMPH % 14.1 % (8-40); MCH 32.6 pg (25.7-33.7); MCHC 33.6 g/dl (32.0-35.9); MEAN PLT VOLUME 7.9 fl (7.5-11.1); NEUT % 73.4 % (42.8-82.8); PLATELET COUNT 173 10^3/uL (134-434); RBC 4.31 M/mm3 (4.00-5.60); RDW 15.1 % (11.9-15.9); WHITE BLOOD COUNT 3.3 K/mm3 (4.0-10.0)
[2023-03-09] MEDS ORDERED: ELOTUZUMAB IV ONE (10:30)
[2023-03-09] MEDS ORDERED: SODIUM CHLORIDE IV ONE (10:30)
[2023-03-09 10:49] LABS: POTASSIUM 4.1 mmol/L (3.5-5.1)
[2023-03-09 10:51] LABS: BLOOD UREA NITROGEN 20.8 mg/dL (7-18); CALCIUM 9.1 mg/dL (8.5-10.1); MAGNESIUM 2.2 mg/dL (1.8-2.4)
[2023-03-09 10:52] LABS: ALBUMIN 3.9 g/dl (3.4-5.0)
[2023-03-09 10:53] LABS: CREATININE 1.2 mg/dL (0.55-1.3)
[2023-03-09 10:54] LABS: BILIRUBIN,DIRECT 0.2 mg/dL (0.0-0.2)
[2023-03-09 10:55] LABS: TOT PROT 6.2 g/dl (6.4-8.2)
[2023-03-09 10:57] LABS: BILIRUBIN,TOTAL 0.7 mg/dL (0.2-1)
[2023-03-09 15:29] VITALS: BP 139/67; PULSE 77; RESP 20; TEMP 98.1
[2023-03-10 14:07] LABS: FREE KAPPA,SERUM 26.2 mg/L (3.3-19.4)
[2023-03-11 06:09] LABS: FREE KAP CHN UR 6.47 mg/L (1.17-86.46); KAPPA LAMBDA RATIO URIN 3.54 (1.83-14.26)
== END 2023-03-09 13:55 | disposition home or self-care (01) ==
LOC: JONCCHEMO 09:42 → J7W 09:45 → JONCCHEMO 13:55
PROVIDERS: ATTEND Internal Medicine Hematology & Oncology
DX: Z51.11 Encounter for antineoplastic chemotherapy (principal); C90.00 Multiple myeloma not having achieved remission
CPT/HCPCS: 36415; 80048; 80076; 82232; 82784; 83615; 83735; 83883; 84155; 84165; 84550; 85025; 86335; 96367; 96413; J9176

== ENCOUNTER 2023-04-06 09:53 | Day surgery (SDC) | payer OTHER, BC ==
[~2023-04-06 09:53] MED LIST changes: +DEXAMETHASONE SODIUM PHOSPHATE 12 MG, DIPHENHYDRAMINE 50 MG in SODIUM CHLORIDE 100 ML IVPB ONE
[2023-04-06] MEDS ORDERED: ELOTUZUMAB IV ONE (10:00)
[2023-04-06] MEDS ORDERED: SODIUM CHLORIDE IV ONE (10:00)
[2023-04-06 10:54] LABS: EOS % 3.5 % (0-4.5); HEMATOCRIT 40.4 % (35.4-49); HEMOGLOBIN 13.8 GM/dL (11.7-16.9); LYMPH % 14.1 % (8-40); MCHC 34.2 g/dl (32.0-35.9); MEAN CELL VOLUME 96.6 fl (80-96); MEAN PLT VOLUME 7.5 fl (7.5-11.1); MONO % 5.9 % (3.8-10.2); NEUT % 74.5 % (42.8-82.8); PLATELET COUNT 168 10^3/uL (134-434); RBC 4.18 M/mm3 (4.00-5.60); RDW 15.8 % (11.9-15.9); WHITE BLOOD COUNT 3.2 K/mm3 (4.0-10.0)
[2023-04-06 11:41] LABS: POTASSIUM 4.7 mmol/L (3.5-5.1)
[2023-04-06 11:53] LABS: CALCIUM 8.8 mg/dL (8.5-10.1)
[2023-04-06 11:54] LABS: ALBUMIN 3.8 g/dl (3.4-5.0); BLOOD UREA NITROGEN 18.7 mg/dL (7-18); MAGNESIUM 2.3 mg/dL (1.8-2.4)
[2023-04-06 11:56] LABS: BILIRUBIN,DIRECT 0.3 mg/dL (0.0-0.2); URIC ACID 4.4 mg/dL (2.6-7.2)
[2023-04-06 11:59] LABS: BILIRUBIN,TOTAL 0.7 mg/dL (0.2-1)
[2023-04-06 18:02] VITALS: TEMP 98.2
[2023-04-06 18:05] VITALS: BP 136/70; PULSE 69; RESP 18
[2023-04-07 17:09] LABS: FREE KAPPA,SERUM 22.2 mg/L (3.3-19.4)
[2023-04-08 07:10] LABS: FREE KAP CHN UR 10.31 mg/L (1.17-86.46); KAPPA LAMBDA RATIO URIN 7.11 (1.83-14.26)
[2023-04-08 07:10] LABS: BETA-2-MICROGLOBULIN 1.7 mg/L (0.6-2.4)
== END 2023-04-06 14:45 | disposition home or self-care (01) ==
LOC: JONCCHEMO 09:53 → J7W 09:59 → JONCCHEMO 14:45
PROVIDERS: ATTEND Internal Medicine Hematology & Oncology
DX: Z51.11 Encounter for antineoplastic chemotherapy (principal); C90.00 Multiple myeloma not having achieved remission
CPT/HCPCS: 36415; 80048; 80076; 82232; 82784; 83615; 83735; 83883; 84155; 84165; 84550; 85025; 86335; 96367; 96375; 96413; J9176

== ENCOUNTER 2023-06-01 09:41 | Day surgery (SDC) | payer OTHER, BC ==
[2023-06-01] MEDS ORDERED: ELOTUZUMAB IV ONE (10:00)
[2023-06-01] MEDS ORDERED: SODIUM CHLORIDE IV ONE (10:00)
[2023-06-01 10:23] LABS: BASO % 1.4 % (0-2.0); EOS % 4.2 % (0-4.5); HEMOGLOBIN 13.7 GM/dL (11.7-16.9); LYMPH % 13.1 % (8-40); MCH 33.1 pg (25.7-33.7); MCHC 33.4 g/dl (32.0-35.9); MEAN CELL VOLUME 98.9 fl (80-96); MEAN PLT VOLUME 7.5 fl (7.5-11.1); MONO % 6.7 % (3.8-10.2); NEUT % 74.6 % (42.8-82.8); PLATELET COUNT 186 10^3/uL (134-434); RBC 4.14 M/mm3 (4.00-5.60); RDW 14.7 % (11.9-15.9); WHITE BLOOD COUNT 3.6 K/mm3 (4.0-10.0)
[2023-06-01 10:41] LABS: POTASSIUM 4.5 mmol/L (3.5-5.1)
[2023-06-01 10:44] LABS: BLOOD UREA NITROGEN 19.3 mg/dL (7-18); CALCIUM 8.9 mg/dL (8.5-10.1)
[2023-06-01 10:45] LABS: ALBUMIN 3.9 g/dl (3.4-5.0); MAGNESIUM 2.2 mg/dL (1.8-2.4)
[2023-06-01 10:47] LABS: BILIRUBIN,DIRECT 0.2 mg/dL (0.0-0.2)
[2023-06-01 10:48] LABS: TOT PROT 6.3 g/dl (6.4-8.2)
[2023-06-01 10:50] LABS: BILIRUBIN,TOTAL 0.7 mg/dL (0.2-1)
[2023-06-01] MEDS ORDERED: IMMUN GLOB G(IGG)/PRO/IGA 0-50 200 ML, IMMUN GLOB G(IGG)/PRO/IGA 0-50 50 ML IVPB ONE (11:06)
[2023-06-01 15:47] VITALS: BP 125/63; PULSE 67; RESP 18; TEMP 98.2
[2023-06-02 18:07] LABS: FREE KAPPA,SERUM 25.5 mg/L (3.3-19.4)
[2023-06-03 07:08] LABS: FREE KAP CHN UR 9.05 mg/L (1.17-86.46); KAPPA LAMBDA RATIO URIN 11.04 (1.83-14.26)
[2023-06-04 08:11] LABS: BETA-2-MICROGLOBULIN 1.7 mg/L (0.6-2.4)
== END 2023-06-01 15:45 | disposition home or self-care (01) ==
LOC: JONCCHEMO 09:41 → J7W 11:05 → JONCCHEMO 15:45
PROVIDERS: ATTEND Internal Medicine Hematology & Oncology
DX: Z51.11 Encounter for antineoplastic chemotherapy (principal); C90.00 Multiple myeloma not having achieved remission
CPT/HCPCS: 36415; 80048; 80076; 82232; 82784; 83615; 83735; 83883; 84155; 84165; 84550; 85025; 86335; 96365; 96366; 96367; 96413; J1459; J9176

== ENCOUNTER 2023-07-27 10:18 | Day surgery (SDC) | payer OTHER, BC ==
[~2023-07-27 10:18] MED LIST changes: +ELOTUZUMAB IV ONE; +SODIUM CHLORIDE IV ONE
[2023-07-27 10:54] LABS: BASO % 1.3 % (0-2.0); EOS % 3.7 % (0-4.5); HEMOGLOBIN 13.7 GM/dL (11.7-16.9); MCH 33.2 pg (25.7-33.7); MCHC 33.4 g/dl (32.0-35.9); MEAN CELL VOLUME 99.5 fl (80-96); MEAN PLT VOLUME 7.2 fl (7.5-11.1); MONO % 6.3 % (3.8-10.2); NEUT % 74.7 % (42.8-82.8); PLATELET COUNT 163 10^3/uL (134-434); RBC 4.12 M/mm3 (4.00-5.60); WHITE BLOOD COUNT 3.3 K/mm3 (4.0-10.0)
[2023-07-27] MEDS ORDERED: IMMUN GLOB G(IGG)/PRO/IGA 0-50 200 ML, IMMUN GLOB G(IGG)/PRO/IGA 0-50 50 ML IVPB ONE (11:15)
[2023-07-27 11:36] LABS: POTASSIUM 4.5 mmol/L (3.5-5.1)
[2023-07-27 11:37] LABS: CALCIUM 9.1 mg/dL (8.5-10.1)
[2023-07-27 11:38] LABS: ALBUMIN 3.8 g/dl (3.4-5.0); BLOOD UREA NITROGEN 19.1 mg/dL (7-18)
[2023-07-27 11:40] LABS: MAGNESIUM 2.1 mg/dL (1.8-2.4); URIC ACID 4.1 mg/dL (2.6-7.2)
[2023-07-27 11:41] LABS: BILIRUBIN,DIRECT 0.2 mg/dL (0.0-0.2); CREATININE 1.2 mg/dL (0.55-1.3)
[2023-07-27 11:42] LABS: BILIRUBIN,TOTAL 0.7 mg/dL (0.2-1); TOT PROT 6.1 g/dl (6.4-8.2)
[2023-07-27 17:24] VITALS: RESP 20; TEMP 97.7
[2023-07-27 17:43] VITALS: BP 118/76; PULSE 68
[2023-07-30 16:09] LABS: FREE KAPPA,SERUM 25.4 mg/L (3.3-19.4)
[2023-07-31 05:06] LABS: FREE KAP CHN UR 3.4 mg/L (1.17-86.46); KAPPA LAMBDA RATIO URIN 4.47 (1.83-14.26)
== END 2023-07-27 17:10 | disposition home or self-care (01) ==
LOC: JONCCHEMO 10:18 → J7W 10:22 → JONCCHEMO 17:10
PROVIDERS: ATTEND Internal Medicine Hematology & Oncology
DX: Z51.11 Encounter for antineoplastic chemotherapy (principal); C90.00 Multiple myeloma not having achieved remission; D80.1 Nonfamilial hypogammaglobulinemia
CPT/HCPCS: 36415; 80048; 80076; 82232; 82607; 82784; 83615; 83735; 83883; 84155; 84165; 84439; 84443; 84550; 85025; 86335; 96366; 96367; 96413; J1459; J9176

== ENCOUNTER 2023-08-31 09:57 | Day surgery (SDC) | payer OTHER, BC ==
[2023-08-31 10:58] LABS: BASO % 1.3 % (0-2.0); EOS % 4.7 % (0-4.5); HEMATOCRIT 40.5 % (35.4-49); HEMOGLOBIN 13.5 GM/dL (11.7-16.9); LYMPH % 12.9 % (8-40); MCH 32.3 pg (25.7-33.7); MCHC 33.3 g/dl (32.0-35.9); MEAN CELL VOLUME 97.1 fl (80-96); MONO % 14.5 % (3.8-10.2); NEUT % 66.6 % (42.8-82.8); PLATELET COUNT 201 10^3/uL (134-434); RBC 4.17 M/mm3 (4.00-5.60); RDW 15.8 % (11.9-15.9); WHITE BLOOD COUNT 4.1 K/mm3 (4.0-10.0)
[2023-08-31] MEDS: SODIUM CHLORIDE 250 ML IV ONE (11:20)
[2023-08-31 11:47] LABS: ALBUMIN 3.7 g/dl (3.4-5.0); BILIRUBIN,TOTAL 0.7 mg/dL (0.2-1); BLOOD UREA NITROGEN 18.6 mg/dL (7-18); CALCIUM 9.2 mg/dL (8.5-10.1); CREATININE 1.1 mg/dL (0.55-1.3); MAGNESIUM 2.2 mg/dL (1.8-2.4); POTASSIUM 4.5 mmol/L (3.5-5.1); TOT PROT 6.3 g/dl (6.4-8.2); URIC ACID 3.6 mg/dL (2.6-7.2)
[2023-08-31] MEDS: DEXAMETHASONE SODIUM PHOSPHATE 20 MG, DIPHENHYDRAMINE 50 MG in SODIUM CHLORIDE 100 ML IVPB ONE (12:07)
[2023-08-31] MEDS: ACETAMINOPHEN 325 MG TABLET (FP) PO ONE (12:09)
[2023-08-31] MEDS: IMMUN GLOB G(IGG)/PRO/IGA 0-50 200 ML, IMMUN GLOB G(IGG)/PRO/IGA 0-50 50 ML IVPB ONE (12:49)
[2023-08-31] MEDS: DARATUMUMAB-HYALURONIDASE-FIHJ (FASPRO) 15 ML VIAL SQ ONE (13:20)
[2023-08-31 17:12] VITALS: TEMP 97.4
[2023-08-31 17:18] VITALS: BP 125/78; PULSE 68; RESP 18
[2023-09-01 16:11] LABS: FREE KAPPA,SERUM 31.5 mg/L (3.3-19.4)
[2023-09-01 18:10] LABS: IG A QN SERUM. 14 mg/dL (61-437)
[2023-09-02 17:07] LABS: IG A QN SERUM. 14 mg/dL (61-437)
== END 2023-08-31 16:30 | disposition home or self-care (01) ==
LOC: JONCCHEMO 09:57 → J7W 09:58 → JONCCHEMO 16:30
PROVIDERS: ATTEND Internal Medicine Hematology & Oncology
PROC: 3E033GC Introduction of Other Therapeutic Substance into Peripheral Vein, Percutaneous Approach (ICD-10-PCS; principal; 2023-08-31)
PROC: 3E01305 Introduction of Other Antineoplastic into Subcutaneous Tissue, Percutaneous Approach (ICD-10-PCS; 2023-08-31)
DX: Z51.11 Encounter for antineoplastic chemotherapy (principal); C90.00 Multiple myeloma not having achieved remission; D80.1 Nonfamilial hypogammaglobulinemia
CPT/HCPCS: 36415; 80053; 82784; 83615; 83735; 83883; 84155; 84165; 84550; 85025; 86334; 86335; 86850; 86900; 86901; 96365; 96366; 96367; 96401; J1459; J9144

== ENCOUNTER 2023-09-07 09:52 | Day surgery (SDC) | payer OTHER, BC ==
[~2023-09-07 09:52] MED LIST changes: +DARATUMUMAB-HYALURONIDASE-FIHJ (FASPRO) 15 ML VIAL SQ ONE; -DEXAMETHASONE SODIUM PHOSPHATE 12 MG, DIPHENHYDRAMINE 50 MG in SODIUM CHLORIDE 100 ML IVPB ONE; +DEXAMETHASONE SODIUM PHOSPHATE 20 MG, DIPHENHYDRAMINE 50 MG in SODIUM CHLORIDE 100 ML IVPB ONE; -ELOTUZUMAB IV ONE; -FAMOTIDINE 20 MG/50 ML IVPB 20 MG/50 ML MG IVPB ONE; +IMMUN GLOB G(IGG)/PRO/IGA 0-50 200 ML, IMMUN GLOB G(IGG)/PRO/IGA 0-50 50 ML IVPB ONE; +SODIUM CHLORIDE 250 ML IV ONE; -SODIUM CHLORIDE IV ONE
[2023-09-07] MEDS ORDERED: ACETAMINOPHEN 325 MG TABLET (FP) PO ONE (10:00)
[2023-09-07] MEDS ORDERED: DEXAMETHASONE SODIUM PHOSPHATE 20 MG, DIPHENHYDRAMINE 50 MG in SODIUM CHLORIDE 100 ML IVPB ONE (10:00)
[2023-09-07] MEDS ORDERED: SODIUM CHLORIDE 250 ML IV ONE (10:30)
[2023-09-07] MEDS ORDERED: DARATUMUMAB-HYALURONIDASE-FIHJ (FASPRO) 15 ML VIAL SQ ONE (10:30)
[2023-09-07 11:02] LABS: BASO % 0.7 % (0-2.0); EOS % 8.1 % (0-4.5); HEMATOCRIT 39.9 % (35.4-49); HEMOGLOBIN 13.1 GM/dL (11.7-16.9); MCH 32.2 pg (25.7-33.7); MCHC 32.9 g/dl (32.0-35.9); MEAN PLT VOLUME 7.8 fl (7.5-11.1); MONO % 14.2 % (3.8-10.2); PLATELET COUNT 113 10^3/uL (134-434); RBC 4.07 M/mm3 (4.00-5.60); RDW 15.7 % (11.9-15.9); WHITE BLOOD COUNT 2.8 K/mm3 (4.0-10.0)
[2023-09-07 11:17] LABS: POTASSIUM 4.3 mmol/L (3.5-5.1)
[2023-09-07 11:19] LABS: CALCIUM 8.5 mg/dL (8.5-10.1)
[2023-09-07 11:20] LABS: ALBUMIN 3.6 g/dl (3.4-5.0); BLOOD UREA NITROGEN 22.3 mg/dL (7-18); MAGNESIUM 1.9 mg/dL (1.8-2.4)
[2023-09-07 11:22] LABS: URIC ACID 3.6 mg/dL (2.6-7.2)
[2023-09-07 11:23] LABS: CREATININE 1.2 mg/dL (0.55-1.3)
[2023-09-07 17:49] VITALS: TEMP 98.2
[2023-09-07 17:56] VITALS: BP 128/67; PULSE 70; RESP 18
== END 2023-09-07 13:10 | disposition home or self-care (01) ==
LOC: JONCCHEMO 09:52 → J7W 09:53 → JONCCHEMO 13:10
PROVIDERS: ATTEND Internal Medicine Hematology & Oncology
PROC: 3E033GC Introduction of Other Therapeutic Substance into Peripheral Vein, Percutaneous Approach (ICD-10-PCS; principal; 2023-09-07)
PROC: 3E01305 Introduction of Other Antineoplastic into Subcutaneous Tissue, Percutaneous Approach (ICD-10-PCS; 2023-09-07)
DX: Z51.11 Encounter for antineoplastic chemotherapy (principal); C90.00 Multiple myeloma not having achieved remission; D80.1 Nonfamilial hypogammaglobulinemia
CPT/HCPCS: 36415; 80053; 83615; 83735; 84550; 85025; 96365; 96401; J9144

== ENCOUNTER 2023-09-14 10:26 | Day surgery (SDC) | payer OTHER, BC ==
[2023-09-14 11:26] LABS: HEMATOCRIT 38.6 % (35.4-49); MCH 32.9 pg (25.7-33.7); MCHC 33.7 g/dl (32.0-35.9); MEAN CELL VOLUME 97.9 fl (80-96); MEAN PLT VOLUME 7.1 fl (7.5-11.1); PLATELET COUNT 155 10^3/uL (134-434); RBC 3.95 M/mm3 (4.00-5.60); RDW 16.5 % (11.9-15.9); WHITE BLOOD COUNT 2.3 K/mm3 (4.0-10.0)
[2023-09-14] MEDS: SODIUM CHLORIDE 250 ML IV ONE ×2 (11:37→13:45)
[2023-09-14 11:55] LABS: POTASSIUM 4.1 mmol/L (3.5-5.1)
[2023-09-14 12:01] LABS: ALBUMIN 3.5 g/dl (3.4-5.0); BLOOD UREA NITROGEN 18.8 mg/dL (7-18); CALCIUM 8.8 mg/dL (8.5-10.1)
[2023-09-14 12:03] LABS: CREATININE 1.1 mg/dL (0.55-1.3)
[2023-09-14 12:05] LABS: BILIRUBIN,TOTAL 0.8 mg/dL (0.2-1); TOT PROT 5.9 g/dl (6.4-8.2); URIC ACID 3.7 mg/dL (2.6-7.2)
[2023-09-14 12:37] LABS: ANISOCYTOSIS 1+; MACROCYTOSIS 0
[2023-09-14] MEDS: ACETAMINOPHEN 325 MG TABLET (FP) PO ONE (13:09)
[2023-09-14] MEDS: DEXAMETHASONE SODIUM PHOSPHATE 20 MG, DIPHENHYDRAMINE 50 MG in SODIUM CHLORIDE 100 ML IVPB ONE (13:09)
[2023-09-14] MEDS: DARATUMUMAB-HYALURONIDASE-FIHJ (FASPRO) 15 ML VIAL SQ ONE (14:27)
[2023-09-14 14:53] VITALS: TEMP 98.5
[2023-09-14 15:00] VITALS: BP 132/72; PULSE 71; RESP 16
== END 2023-09-14 15:00 | disposition home or self-care (01) ==
LOC: JONCCHEMO 10:26 → J7W 10:28 → JONCCHEMO 15:00
PROVIDERS: ATTEND Internal Medicine Hematology & Oncology
PROC: 3E01305 Introduction of Other Antineoplastic into Subcutaneous Tissue, Percutaneous Approach (ICD-10-PCS; principal; 2023-09-14)
PROC: 3E033GC Introduction of Other Therapeutic Substance into Peripheral Vein, Percutaneous Approach (ICD-10-PCS; 2023-09-14)
DX: Z51.11 Encounter for antineoplastic chemotherapy (principal); C90.00 Multiple myeloma not having achieved remission; D80.1 Nonfamilial hypogammaglobulinemia
CPT/HCPCS: 36415; 80053; 80061; 83615; 83718; 83721; 83735; 84439; 84443; 84478; 84550; 85025; 96365; 96401; J9144

== ENCOUNTER 2023-09-21 09:43 | Day surgery (SDC) | payer OTHER, BC ==
[2023-09-21 10:10] LABS: EOS % 3.5 % (0-4.5); HEMATOCRIT 41.3 % (35.4-49); HEMOGLOBIN 14.3 GM/dL (11.7-16.9); LYMPH % 6.9 % (8-40); MCH 33.7 pg (25.7-33.7); MCHC 34.8 g/dl (32.0-35.9); MEAN CELL VOLUME 96.8 fl (80-96); MEAN PLT VOLUME 7.1 fl (7.5-11.1); MONO % 8.6 % (3.8-10.2); PLATELET COUNT 181 10^3/uL (134-434); RBC 4.26 M/mm3 (4.00-5.60); RDW 17.1 % (11.9-15.9); WHITE BLOOD COUNT 4.3 K/mm3 (4.0-10.0)
[2023-09-21] MEDS: SODIUM CHLORIDE 250 ML IV ONE ×2 (10:21→11:30)
[2023-09-21] MEDS: DEXAMETHASONE SODIUM PHOSPHATE 20 MG, DIPHENHYDRAMINE 50 MG in SODIUM CHLORIDE 100 ML IVPB ONE (10:22)
[2023-09-21] MEDS: ACETAMINOPHEN 325 MG TABLET (FP) PO ONE (10:24)
[2023-09-21 10:34] LABS: POTASSIUM 4.2 mmol/L (3.5-5.1)
[2023-09-21 10:36] LABS: CALCIUM 8.8 mg/dL (8.5-10.1)
[2023-09-21 10:37] LABS: ALBUMIN 3.9 g/dl (3.4-5.0); BLOOD UREA NITROGEN 22.3 mg/dL (7-18); MAGNESIUM 2.1 mg/dL (1.8-2.4)
[2023-09-21 10:40] LABS: CREATININE 1.2 mg/dL (0.55-1.3); URIC ACID 4.1 mg/dL (2.6-7.2)
[2023-09-21 10:41] LABS: BILIRUBIN,TOTAL 0.8 mg/dL (0.2-1)
[2023-09-21 10:42] LABS: TOT PROT 6.4 g/dl (6.4-8.2)
[2023-09-21] MEDS: DARATUMUMAB-HYALURONIDASE-FIHJ (FASPRO) 15 ML VIAL SQ ONE (11:31)
[2023-09-21 16:24] VITALS: BP 109/66; PULSE 75; RESP 18; TEMP 98.2
== END 2023-09-21 12:10 | disposition home or self-care (01) ==
LOC: JONCCHEMO 09:43 → J7W 09:44 → JONCCHEMO 12:10
PROVIDERS: ATTEND Internal Medicine Hematology & Oncology
PROC: 3E033GC Introduction of Other Therapeutic Substance into Peripheral Vein, Percutaneous Approach (ICD-10-PCS; principal; 2023-09-21)
PROC: 3E01305 Introduction of Other Antineoplastic into Subcutaneous Tissue, Percutaneous Approach (ICD-10-PCS; 2023-09-21)
DX: Z51.11 Encounter for antineoplastic chemotherapy (principal); D80.1 Nonfamilial hypogammaglobulinemia
CPT/HCPCS: 36415; 80053; 83615; 83735; 84550; 85025; 96365; 96401; J9144

== ENCOUNTER 2023-09-28 09:25 | Day surgery (SDC) | payer OTHER, BC ==
[2023-09-28 10:05] LABS: BASO % 0.8 % (0-2.0); EOS % 2.1 % (0-4.5); HEMATOCRIT 40.3 % (35.4-49); LYMPH % 5.1 % (8-40); MCH 33.8 pg (25.7-33.7); MCHC 34.7 g/dl (32.0-35.9); MEAN CELL VOLUME 97.3 fl (80-96); MEAN PLT VOLUME 7.2 fl (7.5-11.1); MONO % 7.1 % (3.8-10.2); NEUT % 84.9 % (42.8-82.8); PLATELET COUNT 149 10^3/uL (134-434); RBC 4.14 M/mm3 (4.00-5.60); RDW 16.7 % (11.9-15.9); WHITE BLOOD COUNT 4.5 K/mm3 (4.0-10.0)
[2023-09-28] MEDS: ACETAMINOPHEN 325 MG TABLET (FP) PO ONE (10:18)
[2023-09-28] MEDS: DEXAMETHASONE SODIUM PHOSPHATE 20 MG, DIPHENHYDRAMINE 50 MG in SODIUM CHLORIDE 100 ML IVPB ONE (10:18)
[2023-09-28] MEDS: SODIUM CHLORIDE 250 ML IV ONE (10:19)
[2023-09-28 10:28] LABS: POTASSIUM 4.5 mmol/L (3.5-5.1)
[2023-09-28 10:29] LABS: CALCIUM 8.8 mg/dL (8.5-10.1)
[2023-09-28 10:30] LABS: ALBUMIN 3.7 g/dl (3.4-5.0); MAGNESIUM 2.1 mg/dL (1.8-2.4)
[2023-09-28 10:33] LABS: CREATININE 1.2 mg/dL (0.55-1.3)
[2023-09-28 10:34] LABS: TOT PROT 6.3 g/dl (6.4-8.2)
[2023-09-28 10:35] LABS: BILIRUBIN,TOTAL 0.8 mg/dL (0.2-1); BLOOD UREA NITROGEN 21.2 mg/dL (7-18); URIC ACID 4.2 mg/dL (2.6-7.2)
[2023-09-28] MEDS: IMMUN GLOB G(IGG)/PRO/IGA 0-50 200 ML, IMMUN GLOB G(IGG)/PRO/IGA 0-50 50 ML IVPB ONE (10:58)
[2023-09-28] MEDS: DARATUMUMAB-HYALURONIDASE-FIHJ (FASPRO) 15 ML VIAL SQ ONE (13:12)
[2023-09-28 18:27] VITALS: RESP 18; TEMP 97.8
[2023-09-28 18:34] VITALS: BP 132/81; PULSE 82
[2023-09-29 17:06] LABS: FREE KAPPA,SERUM 13.7 mg/L (3.3-19.4)
[2023-09-30 07:07] LABS: FREE KAP CHN UR 1.18 mg/L (1.17-86.46); KAPPA LAMBDA RATIO URIN >1.71 (1.83-14.26)
== END 2023-09-28 14:15 | disposition home or self-care (01) ==
LOC: JONCCHEMO 09:25 → J7W 09:26 → JONCCHEMO 14:15
PROVIDERS: ATTEND Internal Medicine Hematology & Oncology
PROC: 3E033GC Introduction of Other Therapeutic Substance into Peripheral Vein, Percutaneous Approach (ICD-10-PCS; principal; 2023-09-28)
PROC: 3E01305 Introduction of Other Antineoplastic into Subcutaneous Tissue, Percutaneous Approach (ICD-10-PCS; 2023-09-28)
DX: Z51.11 Encounter for antineoplastic chemotherapy (principal); C90.00 Multiple myeloma not having achieved remission; D80.1 Nonfamilial hypogammaglobulinemia
CPT/HCPCS: 36415; 80053; 82784; 83615; 83735; 83883; 84155; 84165; 84550; 85025; 86335; 96365; 96366; 96375; 96401; J1459; J9144

== ENCOUNTER 2023-10-05 09:46 | Day surgery (SDC) | payer OTHER, BC ==
[2023-10-05 10:17] VITALS: RESP 20; TEMP 98.8
[2023-10-05] MEDS: SODIUM CHLORIDE 250 ML IV ONE ×2 (10:40→12:22)
[2023-10-05 10:54] LABS: BASO % 0.4 % (0-2.0); EOS % 2.7 % (0-4.5); HEMATOCRIT 39.4 % (35.4-49); HEMOGLOBIN 13.2 GM/dL (11.7-16.9); LYMPH % 5.6 % (8-40); MCH 32.8 pg (25.7-33.7); MCHC 33.5 g/dl (32.0-35.9); MEAN PLT VOLUME 7.2 fl (7.5-11.1); MONO % 10.7 % (3.8-10.2); NEUT % 80.6 % (42.8-82.8); PLATELET COUNT 163 10^3/uL (134-434); RBC 4.02 M/mm3 (4.00-5.60); RDW 17.8 % (11.9-15.9); WHITE BLOOD COUNT 4.6 K/mm3 (4.0-10.0)
[2023-10-05 11:11] LABS: POTASSIUM 4.4 mmol/L (3.5-5.1)
[2023-10-05 11:13] LABS: CALCIUM 8.5 mg/dL (8.5-10.1)
[2023-10-05 11:14] LABS: ALBUMIN 3.6 g/dl (3.4-5.0); BLOOD UREA NITROGEN 17.6 mg/dL (7-18); MAGNESIUM 1.9 mg/dL (1.8-2.4)
[2023-10-05 11:16] LABS: URIC ACID 3.6 mg/dL (2.6-7.2)
[2023-10-05 11:17] LABS: CREATININE 1.2 mg/dL (0.55-1.3)
[2023-10-05 11:18] LABS: BILIRUBIN,TOTAL 0.7 mg/dL (0.2-1); TOT PROT 6.3 g/dl (6.4-8.2)
[2023-10-05] MEDS: ACETAMINOPHEN 325 MG TABLET (FP) PO ONE (11:36)
[2023-10-05] MEDS: DEXAMETHASONE SODIUM PHOSPHATE 20 MG, DIPHENHYDRAMINE 50 MG in SODIUM CHLORIDE 100 ML IVPB ONE (11:37)
[2023-10-05] MEDS: DARATUMUMAB-HYALURONIDASE-FIHJ (FASPRO) 15 ML VIAL SQ ONE (12:21)
[2023-10-05 13:56] VITALS: BP 130/67; PULSE 72
== END 2023-10-05 13:59 | disposition home or self-care (01) ==
LOC: JONCCHEMO 09:46 → J7W 09:47 → JONCCHEMO 13:59
PROVIDERS: ATTEND Internal Medicine Hematology & Oncology
PROC: 3E033GC Introduction of Other Therapeutic Substance into Peripheral Vein, Percutaneous Approach (ICD-10-PCS; principal; 2023-10-05)
PROC: 3E01305 Introduction of Other Antineoplastic into Subcutaneous Tissue, Percutaneous Approach (ICD-10-PCS; 2023-10-05)
DX: Z51.11 Encounter for antineoplastic chemotherapy (principal); C90.00 Multiple myeloma not having achieved remission; D80.1 Nonfamilial hypogammaglobulinemia
CPT/HCPCS: 36415; 80053; 83615; 83735; 84550; 85025; 96365; 96401; J9144

== ENCOUNTER 2023-10-12 09:55 | Day surgery (SDC) | payer OTHER, BC ==
[2023-10-12 10:39] LABS: BASO % 0.6 % (0-2.0); HEMATOCRIT 38.8 % (35.4-49); HEMOGLOBIN 13.1 GM/dL (11.7-16.9); LYMPH % 7.9 % (8-40); MCH 33.4 pg (25.7-33.7); MCHC 33.9 g/dl (32.0-35.9); MEAN CELL VOLUME 98.5 fl (80-96); MEAN PLT VOLUME 7.3 fl (7.5-11.1); MONO % 14.1 % (3.8-10.2); NEUT % 74.4 % (42.8-82.8); PLATELET COUNT 157 10^3/uL (134-434); RBC 3.94 M/mm3 (4.00-5.60); RDW 17.7 % (11.9-15.9); WHITE BLOOD COUNT 4.7 K/mm3 (4.0-10.0)
[2023-10-12 10:41] VITALS: RESP 18; TEMP 98.2
[2023-10-12 11:13] LABS: POTASSIUM 4.7 mmol/L (3.5-5.1)
[2023-10-12 11:15] LABS: ALBUMIN 3.6 g/dl (3.4-5.0); CALCIUM 8.8 mg/dL (8.5-10.1)
[2023-10-12 11:16] LABS: BLOOD UREA NITROGEN 18.1 mg/dL (7-18); MAGNESIUM 2.1 mg/dL (1.8-2.4)
[2023-10-12 11:18] LABS: CREATININE 1.2 mg/dL (0.55-1.3)
[2023-10-12] MEDS: SODIUM CHLORIDE 250 ML IV ONE ×2 (11:19→12:40)
[2023-10-12 11:20] LABS: BILIRUBIN,TOTAL 0.8 mg/dL (0.2-1); TOT PROT 6.4 g/dl (6.4-8.2)
[2023-10-12 11:25] LABS: URIC ACID 3.6 mg/dL (2.6-7.2)
[2023-10-12] MEDS: DEXAMETHASONE SODIUM PHOSPHATE 20 MG, DIPHENHYDRAMINE 50 MG in SODIUM CHLORIDE 100 ML IVPB ONE (11:48)
[2023-10-12] MEDS: ACETAMINOPHEN 325 MG TABLET (FP) PO ONE (11:48)
[2023-10-12] MEDS: DARATUMUMAB-HYALURONIDASE-FIHJ (FASPRO) 15 ML VIAL SQ ONE (12:53)
[2023-10-12 14:51] VITALS: BP 143/83; PULSE 59
== END 2023-10-12 13:45 | disposition home or self-care (01) ==
LOC: J7W 09:55 → JONCCHEMO 09:55
PROVIDERS: ATTEND Internal Medicine Hematology & Oncology
PROC: 3E01305 Introduction of Other Antineoplastic into Subcutaneous Tissue, Percutaneous Approach (ICD-10-PCS; principal; 2023-10-12)
PROC: 3E033GC Introduction of Other Therapeutic Substance into Peripheral Vein, Percutaneous Approach (ICD-10-PCS; 2023-10-12)
DX: Z51.11 Encounter for antineoplastic chemotherapy (principal); C90.00 Multiple myeloma not having achieved remission; D80.1 Nonfamilial hypogammaglobulinemia
CPT/HCPCS: 36415; 80053; 83615; 83735; 84550; 85025; 96365; 96401; J9144

== ENCOUNTER 2023-10-19 09:55 | Day surgery (SDC) | payer OTHER, BC ==
[2023-10-19 10:36] LABS: BASO % 0.4 % (0-2.0); HEMATOCRIT 39.9 % (35.4-49); HEMOGLOBIN 13.2 GM/dL (11.7-16.9); MCH 33.1 pg (25.7-33.7); MCHC 33.1 g/dl (32.0-35.9); MEAN CELL VOLUME 99.9 fl (80-96); MEAN PLT VOLUME 7.5 fl (7.5-11.1); NEUT % 66.6 % (42.8-82.8); PLATELET COUNT 149 10^3/uL (134-434); RBC 3.99 M/mm3 (4.00-5.60); RDW 18.1 % (11.9-15.9); WHITE BLOOD COUNT 4.1 K/mm3 (4.0-10.0)
[2023-10-19] MEDS: SODIUM CHLORIDE 250 ML IV ONE ×2 (10:38→12:45)
[2023-10-19 10:48] LABS: POTASSIUM 4.6 mmol/L (3.5-5.1)
[2023-10-19 10:51] LABS: CALCIUM 8.7 mg/dL (8.5-10.1)
[2023-10-19 10:52] LABS: ALBUMIN 3.7 g/dl (3.4-5.0); BLOOD UREA NITROGEN 18.4 mg/dL (7-18); MAGNESIUM 2.2 mg/dL (1.8-2.4)
[2023-10-19 10:54] LABS: CREATININE 1.1 mg/dL (0.55-1.3); URIC ACID 3.2 mg/dL (2.6-7.2)
[2023-10-19 10:56] LABS: BILIRUBIN,TOTAL 0.8 mg/dL (0.2-1); TOT PROT 6.4 g/dl (6.4-8.2)
[2023-10-19] MEDS: DEXAMETHASONE SODIUM PHOSPHATE 20 MG, DIPHENHYDRAMINE 50 MG in SODIUM CHLORIDE 100 ML IVPB ONE (11:39)
[2023-10-19] MEDS: ACETAMINOPHEN 325 MG TABLET (FP) PO ONE (11:39)
[2023-10-19] MEDS: DARATUMUMAB-HYALURONIDASE-FIHJ (FASPRO) 15 ML VIAL SQ ONE (13:17)
[2023-10-19 18:09] VITALS: RESP 18; TEMP 97.8
[2023-10-19 18:26] VITALS: BP 134/75; PULSE 66
== END 2023-10-19 13:45 | disposition home or self-care (01) ==
LOC: JONCCHEMO 09:55 → J7W 09:56 → JONCCHEMO 13:45
PROVIDERS: ATTEND Internal Medicine Hematology & Oncology
PROC: 3E01305 Introduction of Other Antineoplastic into Subcutaneous Tissue, Percutaneous Approach (ICD-10-PCS; principal; 2023-10-19)
PROC: 3E033GC Introduction of Other Therapeutic Substance into Peripheral Vein, Percutaneous Approach (ICD-10-PCS; 2023-10-19)
DX: Z51.11 Encounter for antineoplastic chemotherapy (principal); C90.00 Multiple myeloma not having achieved remission; D80.1 Nonfamilial hypogammaglobulinemia
CPT/HCPCS: 36415; 80053; 83615; 83735; 84550; 85025; 96365; 96401; J9144

== ENCOUNTER 2023-10-26 10:10 | Day surgery (SDC) | payer OTHER, BC ==
[2023-10-26] MEDS: ACETAMINOPHEN 325 MG TABLET (FP) PO ONE (10:59)
[2023-10-26] MEDS: DEXAMETHASONE SODIUM PHOSPHATE 20 MG, DIPHENHYDRAMINE 50 MG in SODIUM CHLORIDE 100 ML IVPB ONE (10:59)
[2023-10-26 11:01] LABS: BASO % 1.2 % (0-2.0); EOS % 3.1 % (0-4.5); HEMATOCRIT 41.7 % (35.4-49); HEMOGLOBIN 13.7 GM/dL (11.7-16.9); LYMPH % 9.3 % (8-40); MCH 33.1 pg (25.7-33.7); MEAN CELL VOLUME 100.4 fl (80-96); MEAN PLT VOLUME 7.4 fl (7.5-11.1); NEUT % 73.4 % (42.8-82.8); PLATELET COUNT 172 10^3/uL (134-434); RBC 4.15 M/mm3 (4.00-5.60); RDW 17.9 % (11.9-15.9); WHITE BLOOD COUNT 4.2 K/mm3 (4.0-10.0)
[2023-10-26 11:32] LABS: POTASSIUM 4.4 mmol/L (3.5-5.1)
[2023-10-26 11:35] LABS: ALBUMIN 3.7 g/dl (3.4-5.0); BLOOD UREA NITROGEN 16.3 mg/dL (7-18); CALCIUM 9.3 mg/dL (8.5-10.1); MAGNESIUM 2.2 mg/dL (1.8-2.4)
[2023-10-26 11:38] LABS: CREATININE 1.2 mg/dL (0.55-1.3); URIC ACID 3.7 mg/dL (2.6-7.2)
[2023-10-26 11:40] LABS: BILIRUBIN,TOTAL 0.8 mg/dL (0.2-1); TOT PROT 6.3 g/dl (6.4-8.2)
[2023-10-26] MEDS: IMMUN GLOB G(IGG)/PRO/IGA 0-50 200 ML, IMMUN GLOB G(IGG)/PRO/IGA 0-50 50 ML IVPB ONE (11:41)
[2023-10-26] MEDS: SODIUM CHLORIDE 250 ML IV ONE (14:05)
[2023-10-26] MEDS: DARATUMUMAB-HYALURONIDASE-FIHJ (FASPRO) 15 ML VIAL SQ ONE (14:06)
[2023-10-26 17:38] VITALS: RESP 18; TEMP 97.9
[2023-10-26 17:41] VITALS: BP 144/83; PULSE 79
[2023-10-27 17:11] LABS: FREE KAPPA,SERUM 11.7 mg/L (3.3-19.4)
[2023-10-29 07:10] LABS: FREE KAP CHN UR 6.4 mg/L (1.17-86.46)
== END 2023-10-26 15:05 | disposition home or self-care (01) ==
LOC: J7W 10:10 → JONCCHEMO 10:10
PROVIDERS: ATTEND Internal Medicine Hematology & Oncology
PROC: 3E033GC Introduction of Other Therapeutic Substance into Peripheral Vein, Percutaneous Approach (ICD-10-PCS; principal; 2023-10-26)
PROC: 3E01305 Introduction of Other Antineoplastic into Subcutaneous Tissue, Percutaneous Approach (ICD-10-PCS; 2023-10-26)
DX: Z51.11 Encounter for antineoplastic chemotherapy (principal); C90.00 Multiple myeloma not having achieved remission; D80.1 Nonfamilial hypogammaglobulinemia
CPT/HCPCS: 36415; 80053; 82784; 83615; 83735; 83883; 84155; 84165; 84550; 85025; 86335; 96365; 96366; 96367; 96401; J1459; J9144

== ENCOUNTER 2023-11-09 09:26 | Day surgery (SDC) | payer OTHER, BC ==
[2023-11-09 10:03] LABS: BASO % 0.6 % (0-2.0); EOS % 2.7 % (0-4.5); HEMOGLOBIN 13.5 GM/dL (11.7-16.9); LYMPH % 7.2 % (8-40); MCH 33.2 pg (25.7-33.7); MCHC 32.9 g/dl (32.0-35.9); MEAN CELL VOLUME 100.6 fl (80-96); MEAN PLT VOLUME 7.2 fl (7.5-11.1); MONO % 11.7 % (3.8-10.2); NEUT % 77.8 % (42.8-82.8); PLATELET COUNT 165 10^3/uL (134-434); RBC 4.07 M/mm3 (4.00-5.60); RDW 17.5 % (11.9-15.9); WHITE BLOOD COUNT 5.2 K/mm3 (4.0-10.0)
[2023-11-09 10:19] LABS: POTASSIUM 4.7 mmol/L (3.5-5.1)
[2023-11-09 10:25] LABS: ALBUMIN 3.9 g/dl (3.4-5.0); BLOOD UREA NITROGEN 18.3 mg/dL (7-18)
[2023-11-09 10:26] LABS: CHOLESTEROL 129 mg/dL (50-200)
[2023-11-09 10:28] LABS: CREATININE 1.2 mg/dL (0.55-1.3); LDL CHOLESTEROL (ONLY SJRH) 58 mg/dL (5-100); TOT PROT 6.2 g/dl (6.4-8.2); URIC ACID 3.6 mg/dL (2.6-7.2)
[2023-11-09 10:29] LABS: BILIRUBIN,TOTAL 0.7 mg/dL (0.2-1)
[2023-11-09 10:31] LABS: HDL CHOLESTEROL 63 mg/dL (40-60)
[2023-11-09] MEDS: SODIUM CHLORIDE 250 ML IV ONE ×2 (10:36→11:41)
[2023-11-09] MEDS: ACETAMINOPHEN 325 MG TABLET (FP) PO ONE (10:58)
[2023-11-09] MEDS: DEXAMETHASONE SODIUM PHOSPHATE 20 MG, DIPHENHYDRAMINE 50 MG in SODIUM CHLORIDE 100 ML IVPB ONE (10:58)
[2023-11-09] MEDS: DARATUMUMAB-HYALURONIDASE-FIHJ (FASPRO) 15 ML VIAL SQ ONE (12:29)
[2023-11-09 15:38] VITALS: TEMP 97.7
[2023-11-09 15:51] VITALS: BP 130/70; PULSE 64; RESP 18
== END 2023-11-09 13:00 | disposition home or self-care (01) ==
LOC: JONCCHEMO 09:26 → J7W 09:30 → JONCCHEMO 13:00
PROVIDERS: ATTEND Internal Medicine Hematology & Oncology
DX: Z51.11 Encounter for antineoplastic chemotherapy (principal); C90.00 Multiple myeloma not having achieved remission; D80.1 Nonfamilial hypogammaglobulinemia
CPT/HCPCS: 36415; 80053; 80061; 83615; 83735; 84443; 84550; 85025; 96401; J9144

== ENCOUNTER 2023-11-23 09:55 | Day surgery (SDC) | payer OTHER, BC ==
[2023-11-23] MEDS: SODIUM CHLORIDE 250 ML IV ONE (10:27)
[2023-11-23 10:42] LABS: BASO % 1.1 % (0-2.0); EOS % 2.8 % (0-4.5); HEMATOCRIT 40.5 % (35.4-49); HEMOGLOBIN 13.5 GM/dL (11.7-16.9); LYMPH % 9.6 % (8-40); MCH 33.6 pg (25.7-33.7); MCHC 33.3 g/dl (32.0-35.9); MEAN CELL VOLUME 100.8 fl (80-96); MEAN PLT VOLUME 7.6 fl (7.5-11.1); MONO % 15.9 % (3.8-10.2); NEUT % 70.6 % (42.8-82.8); PLATELET COUNT 165 10^3/uL (134-434); RBC 4.02 M/mm3 (4.00-5.60); RDW 16.2 % (11.9-15.9); WHITE BLOOD COUNT 4.9 K/mm3 (4.0-10.0)
[2023-11-23 11:04] LABS: POTASSIUM 4.1 mmol/L (3.5-5.1)
[2023-11-23 11:06] LABS: CALCIUM 8.9 mg/dL (8.5-10.1)
[2023-11-23 11:07] LABS: BLOOD UREA NITROGEN 19.8 mg/dL (7-18); MAGNESIUM 2.2 mg/dL (1.8-2.4)
[2023-11-23 11:09] LABS: URIC ACID 4.2 mg/dL (2.6-7.2)
[2023-11-23 11:10] LABS: CREATININE 1.2 mg/dL (0.55-1.3)
[2023-11-23 11:11] LABS: BILIRUBIN,TOTAL 0.8 mg/dL (0.2-1); TOT PROT 6.4 g/dl (6.4-8.2)
[2023-11-23] MEDS: DEXAMETHASONE SODIUM PHOSPHATE 20 MG, DIPHENHYDRAMINE 50 MG in SODIUM CHLORIDE 100 ML IVPB ONE (11:22)
[2023-11-23] MEDS: ACETAMINOPHEN 325 MG TABLET (FP) PO ONE (11:23)
[2023-11-23] MEDS: DARATUMUMAB-HYALURONIDASE-FIHJ (FASPRO) 15 ML VIAL SQ ONE (12:18)
[2023-11-23] MEDS: IMMUN GLOB G(IGG)/PRO/IGA 0-50 200 ML, IMMUN GLOB G(IGG)/PRO/IGA 0-50 50 ML IVPB ONE (12:25)
[2023-11-23 17:16] VITALS: BP 137/61; PULSE 53; RESP 18; TEMP 98
[2023-11-25 07:08] LABS: FREE KAP CHN UR 11.59 mg/L (1.17-86.46); KAPPA LAMBDA RATIO URIN 5.02 (1.83-14.26)
[2023-11-25 17:10] LABS: FREE KAPPA,SERUM 12.4 mg/L (3.3-19.4)
== END 2023-11-23 15:00 | disposition home or self-care (01) ==
LOC: JONCCHEMO 09:55 → J7W 09:55 → JONCCHEMO 15:00
PROVIDERS: ATTEND Internal Medicine Hematology & Oncology
PROC: 3E033GC Introduction of Other Therapeutic Substance into Peripheral Vein, Percutaneous Approach (ICD-10-PCS; principal; 2023-11-23)
PROC: 3E01305 Introduction of Other Antineoplastic into Subcutaneous Tissue, Percutaneous Approach (ICD-10-PCS; 2023-11-23)
DX: Z51.11 Encounter for antineoplastic chemotherapy (principal); C90.00 Multiple myeloma not having achieved remission
CPT/HCPCS: 36415; 80053; 82784; 83615; 83735; 83883; 84155; 84165; 84550; 85025; 86335; 96365; 96366; 96401; J1459; J9144

== ENCOUNTER 2023-12-07 10:32 | Day surgery (SDC) | payer OTHER, BC ==
[2023-12-07] MEDS: SODIUM CHLORIDE 250 ML IV ONE ×2 (11:08→13:11)
[2023-12-07 11:26] LABS: BASO % 0.7 % (0-2.0); EOS % 1.4 % (0-4.5); HEMATOCRIT 41.7 % (35.4-49); HEMOGLOBIN 14.1 GM/dL (11.7-16.9); LYMPH % 7.4 % (8-40); MCHC 33.7 g/dl (32.0-35.9); MEAN CELL VOLUME 100.7 fl (80-96); MEAN PLT VOLUME 7.5 fl (7.5-11.1); MONO % 11.1 % (3.8-10.2); NEUT % 79.4 % (42.8-82.8); PLATELET COUNT 153 10^3/uL (134-434); RBC 4.14 M/mm3 (4.00-5.60); RDW 15.3 % (11.9-15.9); WHITE BLOOD COUNT 5.5 K/mm3 (4.0-10.0)
[2023-12-07 12:06] LABS: CHLORIDE 105 mmol/L (98-107); POTASSIUM 4.8 mmol/L (3.5-5.1); SODIUM 141 mmol/L (136-145)
[2023-12-07 12:08] LABS: CALCIUM 9.2 mg/dL (8.5-10.1)
[2023-12-07 12:09] LABS: ALBUMIN 3.8 g/dl (3.4-5.0); ANION GAP 5 mmol/L (4-13); BLOOD UREA NITROGEN 18.6 mg/dL (7-18); CO2 32 mmol/L (21-32); GLUCOSE,RANDOM 112 mg/dL (74-106); MAGNESIUM 2.4 mg/dL (1.8-2.4)
[2023-12-07 12:12] LABS: CREATININE 1.2 mg/dL (0.55-1.3); SGOT/AST 19 U/L (15-37); SGPT/ALT 27 U/L (13-61)
[2023-12-07 12:13] LABS: BILIRUBIN,TOTAL 0.9 mg/dL (0.2-1); LDH 168 U/L (87-246)
[2023-12-07 12:14] LABS: TOT PROT 6.4 g/dl (6.4-8.2)
[2023-12-07 12:15] LABS: ALK PHOS 52 U/L (45-117)
[2023-12-07] MEDS: ACETAMINOPHEN 325 MG TABLET (FP) PO ONE (12:19)
[2023-12-07] MEDS: DEXAMETHASONE SODIUM PHOSPHATE 20 MG, DIPHENHYDRAMINE 50 MG in SODIUM CHLORIDE 100 ML IVPB ONE (12:19)
[2023-12-07] MEDS: DARATUMUMAB-HYALURONIDASE-FIHJ (FASPRO) 15 ML VIAL SQ ONE (13:05)
[2023-12-07 15:16] VITALS: PULSE 51; RESP 20; TEMP 98.4
[2023-12-07 15:23] VITALS: BP 121/48
== END 2023-12-07 14:40 | disposition home or self-care (01) ==
LOC: JONCCHEMO 10:32 → J7W 10:33 → JONCCHEMO 14:40
PROVIDERS: ATTEND Internal Medicine Hematology & Oncology
PROC: 3E01305 Introduction of Other Antineoplastic into Subcutaneous Tissue, Percutaneous Approach (ICD-10-PCS; principal; 2023-12-07)
PROC: 3E033GC Introduction of Other Therapeutic Substance into Peripheral Vein, Percutaneous Approach (ICD-10-PCS; 2023-12-07)
DX: Z51.11 Encounter for antineoplastic chemotherapy (principal); C90.00 Multiple myeloma not having achieved remission
CPT/HCPCS: 36415; 80053; 83615; 83735; 84443; 84550; 85025; 96365; 96401; J9144

== ENCOUNTER 2024-01-05 09:47 | Day surgery (SDC) | payer OTHER, BC ==
[2024-01-05 10:41] LABS: BASO % 0.8 % (0-2.0); EOS % 2.6 % (0-4.5); HEMATOCRIT 39.4 % (35.4-49); HEMOGLOBIN 13.7 GM/dL (11.7-16.9); LYMPH % 7.5 % (8-40); MCH 34.7 pg (25.7-33.7); MCHC 34.6 g/dl (32.0-35.9); MEAN CELL VOLUME 100.2 fl (80-96); MEAN PLT VOLUME 7.6 fl (7.5-11.1); MONO % 6.3 % (3.8-10.2); NEUT % 82.8 % (42.8-82.8); PLATELET COUNT 146 10^3/uL (134-434); RBC 3.94 M/mm3 (4.00-5.60); RDW 14.1 % (11.9-15.9); WHITE BLOOD COUNT 5.5 K/mm3 (4.0-10.0)
[2024-01-05 10:51] LABS: CHLORIDE 103 mmol/L (98-107); POTASSIUM 4.1 mmol/L (3.5-5.1); SODIUM 140 mmol/L (136-145)
[2024-01-05 10:53] LABS: ANION GAP 4 mmol/L (4-13); BLOOD UREA NITROGEN 17.5 mg/dL (7-18); CALCIUM 9.1 mg/dL (8.5-10.1); CO2 32 mmol/L (21-32)
[2024-01-05 10:54] LABS: ALBUMIN 3.7 g/dl (3.4-5.0); GLUCOSE,RANDOM 111 mg/dL (74-106); MAGNESIUM 2.2 mg/dL (1.8-2.4)
[2024-01-05 10:55] LABS: CREATININE 1.2 mg/dL (0.55-1.3); SGPT/ALT 30 U/L (13-61); URIC ACID 3.9 mg/dL (2.6-7.2)
[2024-01-05 10:57] LABS: BILIRUBIN,TOTAL 0.6 mg/dL (0.2-1); LDH 185 U/L (87-246); SGOT/AST 32 U/L (15-37); TOT PROT 6.1 g/dl (6.4-8.2)
[2024-01-05 10:59] LABS: ALK PHOS 55 U/L (45-117)
[2024-01-05 11:10] VITALS: RESP 20; TEMP 98.6
[2024-01-05] MEDS: ACETAMINOPHEN 325 MG TABLET (FP) PO ONE (11:16)
[2024-01-05] MEDS: SODIUM CHLORIDE 250 ML IV ONE (11:17)
[2024-01-05] MEDS: DEXAMETHASONE SODIUM PHOSPHATE 20 MG, DIPHENHYDRAMINE 50 MG in SODIUM CHLORIDE 100 ML IVPB ONE (11:35)
[2024-01-05] MEDS: IMMUN GLOB G(IGG)/PRO/IGA 0-50 200 ML, IMMUN GLOB G(IGG)/PRO/IGA 0-50 50 ML IVPB ONE (12:12)
[2024-01-05] MEDS: DARATUMUMAB-HYALURONIDASE-FIHJ (FASPRO) 15 ML VIAL SQ ONE (13:58)
[2024-01-05 16:41] VITALS: BP 134/67; PULSE 59
[2024-01-06 18:09] LABS: FREE KAPPA,SERUM 9.5 mg/L (3.3-19.4); IG A QN SERUM. 7 mg/dL (61-437)
[2024-01-08 06:09] LABS: FREE KAP CHN UR 6.38 mg/L (1.17-86.46); KAPPA LAMBDA RATIO URIN 6.38 (1.83-14.26)
== END 2024-01-05 14:15 | disposition home or self-care (01) ==
LOC: JONCCHEMO 09:47 → J7W 09:47 → JONCCHEMO 14:15
PROVIDERS: ATTEND Internal Medicine Hematology & Oncology
PROC: 3E01305 Introduction of Other Antineoplastic into Subcutaneous Tissue, Percutaneous Approach (ICD-10-PCS; principal; 2024-01-05)
PROC: 3E033GC Introduction of Other Therapeutic Substance into Peripheral Vein, Percutaneous Approach (ICD-10-PCS; 2024-01-05)
PROC: 3E0337Z Introduction of Electrolytic and Water Balance Substance into Peripheral Vein, Percutaneous Approach (ICD-10-PCS; 2024-01-05)
DX: Z51.11 Encounter for antineoplastic chemotherapy (principal); C90.00 Multiple myeloma not having achieved remission
CPT/HCPCS: 36415; 80053; 82784; 83615; 83735; 83883; 84155; 84165; 84550; 85025; 86335; 96365; 96366; 96367; 96401; J1459; J9144

== ENCOUNTER 2024-01-18 10:37 | Day surgery (SDC) | payer OTHER, BC ==
[2024-01-18 11:12] LABS: BASO % 0.6 % (0-2.0); EOS % 3.9 % (0-4.5); HEMATOCRIT 39.6 % (35.4-49); HEMOGLOBIN 13.4 GM/dL (11.7-16.9); LYMPH % 11.9 % (8-40); MCH 33.9 pg (25.7-33.7); MCHC 33.7 g/dl (32.0-35.9); MEAN CELL VOLUME 100.3 fl (80-96); MEAN PLT VOLUME 7.7 fl (7.5-11.1); MONO % 13.3 % (3.8-10.2); NEUT % 70.3 % (42.8-82.8); PLATELET COUNT 153 10^3/uL (134-434); RBC 3.95 M/mm3 (4.00-5.60); RDW 14.7 % (11.9-15.9); WHITE BLOOD COUNT 3.6 K/mm3 (4.0-10.0)
[2024-01-18 11:32] LABS: CHLORIDE 105 mmol/L (98-107); POTASSIUM 4.6 mmol/L (3.5-5.1); SODIUM 142 mmol/L (136-145)
[2024-01-18 11:34] LABS: CALCIUM 8.5 mg/dL (8.5-10.1)
[2024-01-18 11:35] LABS: ALBUMIN 3.7 g/dl (3.4-5.0); ANION GAP 5 mmol/L (4-13); BLOOD UREA NITROGEN 15.8 mg/dL (7-18); CO2 32 mmol/L (21-32); GLUCOSE,RANDOM 114 mg/dL (74-106)
[2024-01-18] MEDS: SODIUM CHLORIDE 250 ML IV ONE ×2 (11:35→13:15)
[2024-01-18 11:36] LABS: MAGNESIUM 2.2 mg/dL (1.8-2.4)
[2024-01-18 11:37] LABS: URIC ACID 3.9 mg/dL (2.6-7.2)
[2024-01-18 11:38] LABS: CREATININE 1.1 mg/dL (0.55-1.3); SGOT/AST 22 U/L (15-37); SGPT/ALT 26 U/L (13-61)
[2024-01-18 11:39] LABS: LDH 191 U/L (87-246); TOT PROT 6.2 g/dl (6.4-8.2)
[2024-01-18 11:40] LABS: BILIRUBIN,TOTAL 0.6 mg/dL (0.2-1)
[2024-01-18 11:41] LABS: ALK PHOS 52 U/L (45-117)
[2024-01-18] MEDS: ACETAMINOPHEN 325 MG TABLET (FP) PO ONE (12:31)
[2024-01-18] MEDS: DEXAMETHASONE SODIUM PHOSPHATE 20 MG, DIPHENHYDRAMINE 50 MG in SODIUM CHLORIDE 100 ML IVPB ONE (12:31)
[2024-01-18] MEDS: DARATUMUMAB-HYALURONIDASE-FIHJ (FASPRO) 15 ML VIAL SQ ONE (13:15)
[2024-01-18 14:24] VITALS: BP 145/52; PULSE 58; RESP 18; TEMP 98.1
== END 2024-01-18 14:20 | disposition home or self-care (01) ==
LOC: J7W 10:37 → JONCCHEMO 10:37
PROVIDERS: ATTEND Internal Medicine Hematology & Oncology
PROC: 3E01305 Introduction of Other Antineoplastic into Subcutaneous Tissue, Percutaneous Approach (ICD-10-PCS; principal; 2024-01-18)
PROC: 3E033GC Introduction of Other Therapeutic Substance into Peripheral Vein, Percutaneous Approach (ICD-10-PCS; 2024-01-18)
DX: Z51.11 Encounter for antineoplastic chemotherapy (principal); C90.00 Multiple myeloma not having achieved remission
CPT/HCPCS: 36415; 80053; 83615; 83735; 84550; 85025; 96365; 96401; J9144

== ENCOUNTER 2024-02-01 09:41 | Day surgery (SDC) | payer OTHER, BC ==
[2024-02-01 10:06] LABS: BASO % 0.6 % (0-2.0); EOS % 1.8 % (0-4.5); HEMATOCRIT 39.4 % (35.4-49); HEMOGLOBIN 13.2 GM/dL (11.7-16.9); LYMPH % 8.5 % (8-40); MCH 33.7 pg (25.7-33.7); MCHC 33.4 g/dl (32.0-35.9); MEAN CELL VOLUME 101.1 fl (80-96); MEAN PLT VOLUME 7.2 fl (7.5-11.1); MONO % 11.2 % (3.8-10.2); NEUT % 77.9 % (42.8-82.8); PLATELET COUNT 140 10^3/uL (134-434); RDW 14.8 % (11.9-15.9); WHITE BLOOD COUNT 5.1 K/mm3 (4.0-10.0)
[2024-02-01 10:28] LABS: CHLORIDE 106 mmol/L (98-107); POTASSIUM 4.1 mmol/L (3.5-5.1); SODIUM 142 mmol/L (136-145)
[2024-02-01 10:31] LABS: CALCIUM 8.6 mg/dL (8.5-10.1)
[2024-02-01 10:32] LABS: ALBUMIN 3.8 g/dl (3.4-5.0); ANION GAP 5 mmol/L (4-13); BLOOD UREA NITROGEN 18.4 mg/dL (7-18); CO2 31 mmol/L (21-32); GLUCOSE,RANDOM 121 mg/dL (74-106); MAGNESIUM 2.1 mg/dL (1.8-2.4)
[2024-02-01 10:34] LABS: SGPT/ALT 27 U/L (13-61); URIC ACID 4.3 mg/dL (2.6-7.2)
[2024-02-01 10:35] LABS: CREATININE 1.1 mg/dL (0.55-1.3); SGOT/AST 18 U/L (15-37)
[2024-02-01 10:36] LABS: BILIRUBIN,TOTAL 0.6 mg/dL (0.2-1); LDH 173 U/L (87-246); TOT PROT 6.2 g/dl (6.4-8.2)
[2024-02-01 10:37] LABS: ALK PHOS 52 U/L (45-117)
[2024-02-01] MEDS: SODIUM CHLORIDE 250 ML IV ONE (10:50)
[2024-02-01] MEDS: ACETAMINOPHEN 325 MG TABLET (FP) PO ONE (11:12)
[2024-02-01] MEDS: DEXAMETHASONE SODIUM PHOSPHATE 20 MG, DIPHENHYDRAMINE 50 MG in SODIUM CHLORIDE 100 ML IVPB ONE (11:13)
[2024-02-01] MEDS: IMMUN GLOB G(IGG)/PRO/IGA 0-50 200 ML, IMMUN GLOB G(IGG)/PRO/IGA 0-50 50 ML IVPB ONE (11:49)
[2024-02-01] MEDS: DARATUMUMAB-HYALURONIDASE-FIHJ (FASPRO) 15 ML VIAL SQ ONE (14:36)
[2024-02-01 17:16] VITALS: BP 148/58; PULSE 61; RESP 18; TEMP 98.4
[2024-02-03 01:06] LABS: IG A QN SERUM. 6 mg/dL (61-437)
[2024-02-04 06:08] LABS: FREE KAP CHN UR 6.95 mg/L (1.17-86.46); KAPPA LAMBDA RATIO URIN 4.73 (1.83-14.26)
== END 2024-02-01 14:59 | disposition home or self-care (01) ==
LOC: JONCCHEMO 09:41 → J7W 09:42 → JONCCHEMO 14:55
PROVIDERS: ATTEND Internal Medicine Hematology & Oncology
DX: Z51.11 Encounter for antineoplastic chemotherapy (principal); C90.00 Multiple myeloma not having achieved remission; D80.1 Nonfamilial hypogammaglobulinemia
CPT/HCPCS: 36415; 80053; 82784; 83615; 83735; 83883; 84155; 84165; 84550; 85025; 86335; 96365; 96366; 96401; J1459; J9144

== ENCOUNTER 2024-02-15 09:29 | Day surgery (SDC) | payer OTHER, BC ==
[2024-02-15 10:21] LABS: BASO % 0.7 % (0-2.0); HEMATOCRIT 39.4 % (35.4-49); HEMOGLOBIN 13.3 GM/dL (11.7-16.9); LYMPH % 10.8 % (8-40); MCH 33.9 pg (25.7-33.7); MCHC 33.8 g/dl (32.0-35.9); MEAN CELL VOLUME 100.2 fl (80-96); NEUT % 72.5 % (42.8-82.8); PLATELET COUNT 166 10^3/uL (134-434); RBC 3.93 M/mm3 (4.00-5.60); RDW 14.8 % (11.9-15.9); WHITE BLOOD COUNT 4.4 K/mm3 (4.0-10.0)
[2024-02-15] MEDS: SODIUM CHLORIDE 250 ML IV ONE ×2 (10:37→13:00)
[2024-02-15] MEDS: ACETAMINOPHEN 325 MG TABLET (FP) PO ONE (12:18)
[2024-02-15] MEDS: DEXAMETHASONE SODIUM PHOSPHATE 20 MG, DIPHENHYDRAMINE 50 MG in SODIUM CHLORIDE 100 ML IVPB ONE (12:19)
[2024-02-15 12:25] LABS: POTASSIUM 4.3 mmol/L (3.5-5.1)
[2024-02-15 12:28] LABS: ALBUMIN 3.8 g/dl (3.4-5.0); MAGNESIUM 2.1 mg/dL (1.8-2.4)
[2024-02-15 12:32] LABS: BILIRUBIN,TOTAL 0.6 mg/dL (0.2-1); CREATININE 1.2 mg/dL (0.55-1.3); TOT PROT 6.4 g/dl (6.4-8.2); URIC ACID 4.1 mg/dL (2.6-7.2)
[2024-02-15] MEDS: DARATUMUMAB-HYALURONIDASE-FIHJ (FASPRO) 15 ML VIAL SQ ONE (12:54)
[2024-02-15 15:23] VITALS: BP 148/63; PULSE 60; RESP 18; TEMP 98.5
== END 2024-02-15 14:20 | disposition home or self-care (01) ==
LOC: JONCCHEMO 09:29 → J7W 09:29 → JONCCHEMO 14:20
PROVIDERS: ATTEND Internal Medicine Hematology & Oncology
PROC: 3E033GC Introduction of Other Therapeutic Substance into Peripheral Vein, Percutaneous Approach (ICD-10-PCS; principal; 2024-02-15)
PROC: 3E01305 Introduction of Other Antineoplastic into Subcutaneous Tissue, Percutaneous Approach (ICD-10-PCS; 2024-02-15)
DX: Z51.11 Encounter for antineoplastic chemotherapy (principal); C90.00 Multiple myeloma not having achieved remission
CPT/HCPCS: 36415; 80053; 83615; 83735; 84550; 85025; 96365; 96401; J9144

== ENCOUNTER 2024-02-29 09:39 | Day surgery (SDC) | payer OTHER, BC ==
[2024-02-29] MEDS: SODIUM CHLORIDE 250 ML IV ONE (10:17)
[2024-02-29 10:19] LABS: BASO % 0.7 % (0-2.0); EOS % 2.8 % (0-4.5); HEMATOCRIT 38.6 % (35.4-49); HEMOGLOBIN 13.5 GM/dL (11.7-16.9); LYMPH % 8.8 % (8-40); MCH 34.8 pg (25.7-33.7); MEAN CELL VOLUME 99.4 fl (80-96); MEAN PLT VOLUME 7.4 fl (7.5-11.1); MONO % 11.4 % (3.8-10.2); NEUT % 76.3 % (42.8-82.8); PLATELET COUNT 143 10^3/uL (134-434); RBC 3.89 M/mm3 (4.00-5.60); RDW 14.7 % (11.9-15.9); WHITE BLOOD COUNT 5.5 K/mm3 (4.0-10.0)
[2024-02-29] MEDS: ACETAMINOPHEN 325 MG TABLET (FP) PO ONE (10:25)
[2024-02-29] MEDS: DEXAMETHASONE INJECTION 20 MG, DIPHENHYDRAMINE 50 MG in SODIUM CHLORIDE 100 ML IVPB ONE (10:25)
[2024-02-29 11:10] LABS: CALCIUM 8.8 mg/dL (8.5-10.1)
[2024-02-29 11:11] LABS: ALBUMIN 3.9 g/dl (3.4-5.0)
[2024-02-29 11:14] LABS: CREATININE 1.1 mg/dL (0.55-1.3); URIC ACID 3.7 mg/dL (2.6-7.2)
[2024-02-29] MEDS: IMMUN GLOB G(IGG)/PRO/IGA 0-50 200 ML, IMMUN GLOB G(IGG)/PRO/IGA 0-50 50 ML IVPB ONE (11:14)
[2024-02-29 11:16] LABS: BILIRUBIN,TOTAL 0.6 mg/dL (0.2-1); TOT PROT 6.1 g/dl (6.4-8.2)
[2024-02-29] MEDS: DARATUMUMAB-HYALURONIDASE-FIHJ (FASPRO) 15 ML VIAL SQ ONE (14:10)
[2024-02-29 15:04] VITALS: RESP 20
[2024-02-29 15:15] VITALS: BP 148/65; PULSE 57; TEMP 98.2
[2024-03-01 17:09] LABS: FREE KAPPA,SERUM 7.8 mg/L (3.3-19.4)
[2024-03-02 18:08] LABS: IG A QN SERUM. 7 mg/dL (61-437)
[2024-03-04 06:09] LABS: KAPPA LAMBDA RATIO URIN 7.58 (1.83-14.26)
== END 2024-02-29 15:00 | disposition home or self-care (01) ==
LOC: JONCCHEMO 09:39 → J7W 09:45 → JONCCHEMO 15:00
PROVIDERS: ATTEND Internal Medicine Hematology & Oncology
PROC: 3E01305 Introduction of Other Antineoplastic into Subcutaneous Tissue, Percutaneous Approach (ICD-10-PCS; principal; 2024-02-29)
PROC: 3E033GC Introduction of Other Therapeutic Substance into Peripheral Vein, Percutaneous Approach (ICD-10-PCS; 2024-02-29)
DX: Z51.11 Encounter for antineoplastic chemotherapy (principal); C90.00 Multiple myeloma not having achieved remission
CPT/HCPCS: 36415; 80053; 82784; 83615; 83735; 83883; 84155; 84165; 84550; 85025; 86335; 96365; 96366; 96401; J1100; J1459; J9144

== ENCOUNTER 2024-03-28 09:46 | Day surgery (SDC) | payer OTHER, BC ==
[2024-03-28 10:44] LABS: BASO % 0.6 % (0-2.0); EOS % 3.2 % (0-4.5); HEMATOCRIT 38.1 % (35.4-49); HEMOGLOBIN 12.9 GM/dL (11.7-16.9); LYMPH % 9.6 % (8-40); MCH 33.9 pg (25.7-33.7); MCHC 33.8 g/dl (32.0-35.9); MEAN CELL VOLUME 100.1 fl (80-96); MEAN PLT VOLUME 7.8 fl (7.5-11.1); MONO % 12.4 % (3.8-10.2); NEUT % 74.2 % (42.8-82.8); PLATELET COUNT 153 10^3/uL (134-434); RBC 3.81 M/mm3 (4.00-5.60); RDW 14.9 % (11.9-15.9); WHITE BLOOD COUNT 4.5 K/mm3 (4.0-10.0)
[2024-03-28 11:00] LABS: CHLORIDE 104 mmol/L (98-107); POTASSIUM 4.4 mmol/L (3.5-5.1); SODIUM 142 mmol/L (136-145)
[2024-03-28 11:03] LABS: ALBUMIN 3.8 g/dl (3.4-5.0); ANION GAP 7 mmol/L (4-13); BLOOD UREA NITROGEN 17.3 mg/dL (7-18); CALCIUM 8.9 mg/dL (8.5-10.1); CO2 30 mmol/L (21-32); GLUCOSE,RANDOM 118 mg/dL (74-106)
[2024-03-28 11:06] LABS: URIC ACID 3.9 mg/dL (2.6-7.2)
[2024-03-28 11:07] LABS: SGOT/AST 19 U/L (15-37); SGPT/ALT 27 U/L (13-61)
[2024-03-28 11:08] LABS: BILIRUBIN,TOTAL 0.6 mg/dL (0.2-1); CREATININE 1.3 mg/dL (0.55-1.3); LDH 186 U/L (87-246); TOT PROT 6.2 g/dl (6.4-8.2)
[2024-03-28 11:09] LABS: ALK PHOS 56 U/L (45-117)
[2024-03-28] MEDS: SODIUM CHLORIDE 250 ML IV ONE (11:35)
[2024-03-28] MEDS: ACETAMINOPHEN 325 MG TABLET (FP) PO ONE (11:56)
[2024-03-28] MEDS: DEXAMETHASONE INJECTION 20 MG, DIPHENHYDRAMINE 50 MG in SODIUM CHLORIDE 100 ML IVPB ONE (11:56)
[2024-03-28] MEDS: IMMUN GLOB G(IGG)/PRO/IGA 0-50 200 ML, IMMUN GLOB G(IGG)/PRO/IGA 0-50 50 ML IVPB ONE (12:40)
[2024-03-28] MEDS: DARATUMUMAB-HYALURONIDASE-FIHJ (FASPRO) 15 ML VIAL SQ ONE (14:03)
[2024-03-28 17:32] VITALS: BP 151/69; PULSE 50; RESP 18; TEMP 98.8
[2024-03-29 17:08] LABS: FREE KAPPA,SERUM 8.1 mg/L (3.3-19.4)
[2024-03-29 20:07] LABS: IG A QN SERUM. 6 mg/dL (61-437)
[2024-03-30 05:07] LABS: FREE KAP CHN UR 2.05 mg/L (1.17-86.46); KAPPA LAMBDA RATIO URIN 2.63 (1.83-14.26)
== END 2024-03-28 15:00 | disposition home or self-care (01) ==
LOC: JONCCHEMO 09:46 → J7W 09:47 → JONCCHEMO 15:00
PROVIDERS: ATTEND Internal Medicine Hematology & Oncology
PROC: 3E033GC Introduction of Other Therapeutic Substance into Peripheral Vein, Percutaneous Approach (ICD-10-PCS; principal; 2024-03-28)
PROC: 3E01305 Introduction of Other Antineoplastic into Subcutaneous Tissue, Percutaneous Approach (ICD-10-PCS; 2024-03-28)
DX: Z51.11 Encounter for antineoplastic chemotherapy (principal); C90.00 Multiple myeloma not having achieved remission; D80.1 Nonfamilial hypogammaglobulinemia; C79.52 Secondary malignant neoplasm of bone marrow; C79.51 Secondary malignant neoplasm of bone
CPT/HCPCS: 36415; 80053; 82784; 83615; 83735; 83883; 84155; 84165; 84550; 85025; 86335; 96365; 96366; 96375; 96401; J1100; J1459; J9144

== ENCOUNTER 2024-04-25 09:15 | Day surgery (SDC) | payer OTHER, BC ==
[2024-04-25] MEDS: SODIUM CHLORIDE 250 ML IV ONE (09:57)
[2024-04-25 10:04] LABS: BASO % 0.8 % (0-2.0); EOS % 3.4 % (0-4.5); HEMATOCRIT 39.7 % (35.4-49); HEMOGLOBIN 13.2 GM/dL (11.7-16.9); LYMPH % 11.4 % (8-40); MCH 33.7 pg (25.7-33.7); MCHC 33.3 g/dl (32.0-35.9); MEAN CELL VOLUME 101.2 fl (80-96); MEAN PLT VOLUME 7.6 fl (7.5-11.1); MONO % 15.1 % (3.8-10.2); NEUT % 69.3 % (42.8-82.8); PLATELET COUNT 155 10^3/uL (134-434); RBC 3.92 M/mm3 (4.00-5.60); RDW 14.8 % (11.9-15.9)
[2024-04-25] MEDS: DEXAMETHASONE INJECTION 20 MG, DIPHENHYDRAMINE 50 MG in SODIUM CHLORIDE 100 ML IVPB ONE (10:10)
[2024-04-25] MEDS: ACETAMINOPHEN 325 MG TABLET (FP) PO ONE (10:11)
[2024-04-25 10:27] LABS: POTASSIUM 4.1 mmol/L (3.5-5.1)
[2024-04-25 10:29] LABS: CALCIUM 8.9 mg/dL (8.5-10.1)
[2024-04-25 10:30] LABS: ALBUMIN 3.9 g/dl (3.4-5.0); BLOOD UREA NITROGEN 18.2 mg/dL (7-18); MAGNESIUM 2.3 mg/dL (1.8-2.4)
[2024-04-25 10:33] LABS: CHOLESTEROL 130 mg/dL (50-200); CREATININE 1.2 mg/dL (0.55-1.3)
[2024-04-25 10:34] LABS: LDL CHOLESTEROL (ONLY SJRH) 69 mg/dL (5-100)
[2024-04-25 10:35] LABS: BILIRUBIN,TOTAL 0.7 mg/dL (0.2-1); TOT PROT 6.3 g/dl (6.4-8.2)
[2024-04-25 10:36] LABS: HDL CHOLESTEROL 56 mg/dL (40-60)
[2024-04-25] MEDS: IMMUN GLOB G(IGG)/PRO/IGA 0-50 200 ML, IMMUN GLOB G(IGG)/PRO/IGA 0-50 50 ML IVPB ONE (11:15)
[2024-04-25] MEDS: DARATUMUMAB-HYALURONIDASE-FIHJ (FASPRO) 15 ML VIAL SQ ONE (13:03)
[2024-04-25 15:35] VITALS: RESP 18; TEMP 98.3
[2024-04-25 15:40] VITALS: BP 147/57; PULSE 54
[2024-04-26 18:11] LABS: IG A QN SERUM. 11 mg/dL (61-437)
== END 2024-04-25 13:15 | disposition home or self-care (01) ==
LOC: JONCCHEMO 09:15 → J7W 09:15 → JONCCHEMO 13:15
PROVIDERS: ATTEND Internal Medicine Hematology & Oncology
PROC: 3E01305 Introduction of Other Antineoplastic into Subcutaneous Tissue, Percutaneous Approach (ICD-10-PCS; principal; 2024-04-25)
PROC: 3E033GC Introduction of Other Therapeutic Substance into Peripheral Vein, Percutaneous Approach (ICD-10-PCS; 2024-04-25)
PROC: 3E0337Z Introduction of Electrolytic and Water Balance Substance into Peripheral Vein, Percutaneous Approach (ICD-10-PCS; 2024-04-25)
DX: Z51.11 Encounter for antineoplastic chemotherapy (principal); C90.00 Multiple myeloma not having achieved remission; C79.51 Secondary malignant neoplasm of bone
CPT/HCPCS: 36415; 80053; 80061; 82784; 83615; 83735; 83883; 84155; 84165; 84550; 85025; 86335; 96365; 96366; 96367; 96401; J1100; J1459; J9144

== ENCOUNTER 2024-05-23 10:06 | Day surgery (SDC) | payer OTHER, BC ==
[2024-05-23 11:16] LABS: BASO % 0.9 % (0-2.0); EOS % 3.1 % (0-4.5); HEMOGLOBIN 13.3 GM/dL (11.7-16.9); LYMPH % 10.2 % (8-40); MCH 33.9 pg (25.7-33.7); MCHC 34.2 g/dl (32.0-35.9); MEAN CELL VOLUME 99.4 fl (80-96); MEAN PLT VOLUME 7.8 fl (7.5-11.1); MONO % 12.8 % (3.8-10.2); PLATELET COUNT 149 10^3/uL (134-434); RBC 3.92 M/mm3 (4.00-5.60); RDW 14.6 % (11.9-15.9); WHITE BLOOD COUNT 4.1 K/mm3 (4.0-10.0)
[2024-05-23 11:33] LABS: CHLORIDE 106 mmol/L (98-107); POTASSIUM 4.3 mmol/L (3.5-5.1); SODIUM 142 mmol/L (136-145)
[2024-05-23 11:36] LABS: CALCIUM 9.3 mg/dL (8.5-10.1)
[2024-05-23 11:37] LABS: ALBUMIN 3.8 g/dl (3.4-5.0); ANION GAP 6 mmol/L (4-13); BLOOD UREA NITROGEN 19.1 mg/dL (7-18); CO2 30 mmol/L (21-32); GLUCOSE,RANDOM 109 mg/dL (74-106); MAGNESIUM 2.2 mg/dL (1.8-2.4)
[2024-05-23 11:40] LABS: CREATININE 1.2 mg/dL (0.55-1.3); SGOT/AST 19 U/L (15-37); SGPT/ALT 28 U/L (13-61); URIC ACID 3.8 mg/dL (2.6-7.2)
[2024-05-23 11:42] LABS: BILIRUBIN,TOTAL 0.7 mg/dL (0.2-1)
[2024-05-23 11:43] LABS: ALK PHOS 51 U/L (45-117); LDH 173 U/L (87-246)
[2024-05-23] MEDS: DEXAMETHASONE INJECTION 20 MG, DIPHENHYDRAMINE 50 MG in SODIUM CHLORIDE 100 ML IVPB ONE (12:00)
[2024-05-23] MEDS: SODIUM CHLORIDE 250 ML IV ONE (12:00)
[2024-05-23] MEDS: ACETAMINOPHEN 325 MG TABLET (FP) PO ONE (12:33)
[2024-05-23] MEDS: IMMUN GLOB G(IGG)/PRO/IGA 0-50 200 ML, IMMUN GLOB G(IGG)/PRO/IGA 0-50 50 ML IVPB ONE (12:58)
[2024-05-23] MEDS: DARATUMUMAB-HYALURONIDASE-FIHJ (FASPRO) 15 ML VIAL SQ ONE (15:07)
[2024-05-23 17:18] VITALS: BP 147/66; PULSE 58; RESP 16; TEMP 97.8
[2024-05-24 17:10] LABS: IG A QN SERUM. 8 mg/dL (61-437)
[2024-05-24 18:10] LABS: FREE KAPPA,SERUM 8.2 mg/L (3.3-19.4)
[2024-05-25 06:09] LABS: FREE KAP CHN UR 4.51 mg/L (1.17-86.46); KAPPA LAMBDA RATIO URIN 3.27 (1.83-14.26)
== END 2024-05-23 15:30 | disposition home or self-care (01) ==
LOC: JONCCHEMO 10:06 → J7W 10:07 → JONCCHEMO 15:30
PROVIDERS: ATTEND Internal Medicine Hematology & Oncology
PROC: 3E033GC Introduction of Other Therapeutic Substance into Peripheral Vein, Percutaneous Approach (ICD-10-PCS; principal; 2024-05-23)
PROC: 3E01305 Introduction of Other Antineoplastic into Subcutaneous Tissue, Percutaneous Approach (ICD-10-PCS; 2024-05-23)
DX: Z51.11 Encounter for antineoplastic chemotherapy (principal); C90.00 Multiple myeloma not having achieved remission; D80.1 Nonfamilial hypogammaglobulinemia
CPT/HCPCS: 36415; 80053; 82784; 83615; 83735; 83883; 84155; 84165; 84550; 85025; 86335; 90471; 96365; 96366; 96367; J1100; J1459; J9144

== ENCOUNTER 2024-06-20 10:17 | Day surgery (SDC) | payer OTHER, BC ==
[2024-06-20] MEDS: SODIUM CHLORIDE 250 ML IV ONE (10:25)
[2024-06-20 10:54] LABS: BASO % 1.1 % (0-2.0); EOS % 3.4 % (0-4.5); HEMATOCRIT 41.2 % (35.4-49); HEMOGLOBIN 13.6 GM/dL (11.7-16.9); LYMPH % 12.7 % (8-40); MCH 33.1 pg (25.7-33.7); MCHC 33.1 g/dl (32.0-35.9); MEAN PLT VOLUME 7.7 fl (7.5-11.1); MONO % 14.5 % (3.8-10.2); NEUT % 68.3 % (42.8-82.8); PLATELET COUNT 152 10^3/uL (134-434); RBC 4.12 M/mm3 (4.00-5.60); RDW 14.4 % (11.9-15.9)
[2024-06-20 11:07] LABS: CHLORIDE 103 mmol/L (98-107); POTASSIUM 4.3 mmol/L (3.5-5.1); SODIUM 141 mmol/L (136-145)
[2024-06-20 11:13] LABS: CALCIUM 9.2 mg/dL (8.5-10.1)
[2024-06-20 11:14] LABS: ALBUMIN 3.9 g/dl (3.4-5.0); ANION GAP 8 mmol/L (4-13); CO2 30 mmol/L (21-32); GLUCOSE,RANDOM 109 mg/dL (74-106)
[2024-06-20 11:16] LABS: BILIRUBIN,DIRECT 0.2 mg/dL (0.0-0.2); SGPT/ALT 26 U/L (13-61)
[2024-06-20 11:17] LABS: CREATININE 1.2 mg/dL (0.55-1.3); SGOT/AST 16 U/L (15-37)
[2024-06-20 11:18] LABS: BILIRUBIN,TOTAL 0.7 mg/dL (0.2-1); TOT PROT 6.3 g/dl (6.4-8.2)
[2024-06-20] MEDS: DEXAMETHASONE INJECTION 20 MG, DIPHENHYDRAMINE 50 MG in SODIUM CHLORIDE 100 ML IVPB ONE (11:19)
[2024-06-20 11:20] LABS: ALK PHOS 52 U/L (45-117)
[2024-06-20] MEDS: ACETAMINOPHEN 325 MG TABLET (FP) PO ONE (11:20)
[2024-06-20] MEDS: IMMUN GLOB G(IGG)/PRO/IGA 0-50 200 ML, IMMUN GLOB G(IGG)/PRO/IGA 0-50 50 ML IVPB ONE (12:08)
[2024-06-20] MEDS: DARATUMUMAB-HYALURONIDASE-FIHJ (FASPRO) 15 ML VIAL SQ ONE (15:23)
[2024-06-20 16:28] VITALS: BP 150/49; PULSE 55; RESP 18; TEMP 98.2
[2024-06-20] MEDS ORDERED: PORTA CATH FLUSH 10 ML IVPUSH PRN (16:28)
[2024-06-21 18:08] LABS: FREE KAPPA,SERUM 8.3 mg/L (3.3-19.4)
[2024-06-22 05:07] LABS: FREE KAP CHN UR 4.92 mg/L (1.17-86.46); KAPPA LAMBDA RATIO URIN 5.93 (1.83-14.26)
[2024-06-22 18:08] LABS: IG A QN SERUM. 7 mg/dL (61-437)
== END 2024-06-20 16:10 | disposition home or self-care (01) ==
LOC: JONCCHEMO 10:17 → J7W 10:18 → JONCCHEMO 16:10
PROVIDERS: ATTEND Internal Medicine Hematology & Oncology
PROC: 3E033GC Introduction of Other Therapeutic Substance into Peripheral Vein, Percutaneous Approach (ICD-10-PCS; principal; 2024-06-20)
PROC: 3E01305 Introduction of Other Antineoplastic into Subcutaneous Tissue, Percutaneous Approach (ICD-10-PCS; 2024-06-20)
DX: Z51.11 Encounter for antineoplastic chemotherapy (principal)
CPT/HCPCS: 36415; 80048; 80076; 82784; 83883; 84155; 84165; 85025; 96365; 96366; 96401; J1100; J1459; J9144

== ENCOUNTER 2024-07-18 10:30 | Day surgery (SDC) | payer OTHER, BC ==
[2024-07-18] MEDS: SODIUM CHLORIDE 250 ML IV ONE (10:27)
[2024-07-18] MEDS: DEXAMETHASONE INJECTION 20 MG, DIPHENHYDRAMINE 50 MG in SODIUM CHLORIDE 100 ML IVPB ONE (10:30)
[2024-07-18] MEDS: ACETAMINOPHEN 325 MG TABLET (FP) PO ONE (10:31)
[2024-07-18 10:42] LABS: HEMATOCRIT 40.8 % (35.4-49); HEMOGLOBIN 13.8 GM/dL (11.7-16.9); MCH 33.4 pg (25.7-33.7); MCHC 33.9 g/dl (32.0-35.9); MEAN CELL VOLUME 98.6 fl (80-96); MEAN PLT VOLUME 7.6 fl (7.5-11.1); PLATELET COUNT 136 10^3/uL (134-434); RBC 4.14 M/mm3 (4.00-5.60); RDW 14.7 % (11.9-15.9); WHITE BLOOD COUNT 3.9 K/mm3 (4.0-10.0)
[2024-07-18 10:50] LABS: CHLORIDE 103 mmol/L (98-107); POTASSIUM 4.1 mmol/L (3.5-5.1); SODIUM 140 mmol/L (136-145)
[2024-07-18 10:53] LABS: ALBUMIN 3.9 g/dl (3.4-5.0); ANION GAP 7 mmol/L (4-13); BLOOD UREA NITROGEN 18.9 mg/dL (7-18); CALCIUM 8.9 mg/dL (8.5-10.1); CO2 30 mmol/L (21-32); GLUCOSE,RANDOM 112 mg/dL (74-106)
[2024-07-18 10:56] LABS: CREATININE 1.2 mg/dL (0.55-1.3); SGOT/AST 15 U/L (15-37); SGPT/ALT 25 U/L (13-61)
[2024-07-18 10:57] LABS: BILIRUBIN,DIRECT 0.2 mg/dL (0.0-0.2)
[2024-07-18 10:58] LABS: ALK PHOS 55 U/L (45-117); BILIRUBIN,TOTAL 0.7 mg/dL (0.2-1); TOT PROT 6.4 g/dl (6.4-8.2)
[2024-07-18] MEDS: IMMUN GLOB G(IGG)/PRO/IGA 0-50 200 ML, IMMUN GLOB G(IGG)/PRO/IGA 0-50 50 ML IVPB ONE (11:21)
[2024-07-18] MEDS: DARATUMUMAB-HYALURONIDASE-FIHJ (FASPRO) 15 ML VIAL SQ ONE (13:27)
[2024-07-18 16:49] VITALS: RESP 20; TEMP 97.7
[2024-07-18 16:58] VITALS: BP 144/62; PULSE 68
[2024-07-20 18:06] LABS: IG A QN SERUM. 7 mg/dL (61-437)
[2024-07-24 16:08] LABS: FREE KAP CHN UR 5.63 mg/L (1.17-86.46); KAPPA LAMBDA RATIO URIN 4.94 (1.83-14.26)
== END 2024-07-18 14:00 | disposition home or self-care (01) ==
LOC: JONCCHEMO 10:30 → J7W 10:30 → JONCCHEMO 14:00
PROVIDERS: ATTEND Internal Medicine Hematology & Oncology
PROC: 3E033GC Introduction of Other Therapeutic Substance into Peripheral Vein, Percutaneous Approach (ICD-10-PCS; principal; 2024-07-18)
PROC: 3E01305 Introduction of Other Antineoplastic into Subcutaneous Tissue, Percutaneous Approach (ICD-10-PCS; 2024-07-18)
DX: Z51.11 Encounter for antineoplastic chemotherapy (principal); C90.00 Multiple myeloma not having achieved remission
CPT/HCPCS: 36415; 80048; 80076; 82784; 83883; 84155; 84165; 85025; 96365; 96366; 96401; J1100; J1459; J9144

== ENCOUNTER 2024-08-16 10:23 | Day surgery (SDC) | payer OTHER, BC ==
[2024-08-16 10:24] LABS: BASO % 0.6 % (0-2.0); EOS % 4.1 % (0-4.5); HEMATOCRIT 40.1 % (35.4-49); HEMOGLOBIN 13.1 GM/dL (11.7-16.9); LYMPH % 12.9 % (8-40); MCH 32.8 pg (25.7-33.7); MCHC 32.7 g/dl (32.0-35.9); MEAN CELL VOLUME 100.2 fl (80-96); MEAN PLT VOLUME 7.4 fl (7.5-11.1); NEUT % 65.4 % (42.8-82.8); PLATELET COUNT 139 10^3/uL (134-434); WHITE BLOOD COUNT 5.7 K/mm3 (4.0-10.0)
[2024-08-16 10:40] LABS: CHLORIDE 104 mmol/L (98-107); POTASSIUM 4.6 mmol/L (3.5-5.1); SODIUM 140 mmol/L (136-145)
[2024-08-16 10:42] LABS: CALCIUM 8.9 mg/dL (8.5-10.1)
[2024-08-16 10:43] LABS: ALBUMIN 3.9 g/dl (3.4-5.0); ANION GAP 4 mmol/L (4-13); BLOOD UREA NITROGEN 24.5 mg/dL (7-18); CO2 32 mmol/L (21-32); GLUCOSE,RANDOM 103 mg/dL (74-106); MAGNESIUM 2.1 mg/dL (1.8-2.4)
[2024-08-16 10:45] LABS: URIC ACID 3.6 mg/dL (2.6-7.2)
[2024-08-16 10:46] LABS: CREATININE 1.2 mg/dL (0.55-1.3); SGOT/AST 12 U/L (15-37); SGPT/ALT 20 U/L (13-61)
[2024-08-16 10:47] LABS: BILIRUBIN,TOTAL 0.7 mg/dL (0.2-1); TOT PROT 6.2 g/dl (6.4-8.2)
[2024-08-16 10:48] LABS: ALK PHOS 52 U/L (45-117)
[2024-08-16 10:51] LABS: LDH 150 U/L (87-246)
[2024-08-16] MEDS: SODIUM CHLORIDE 250 ML IV ONE (11:10)
[2024-08-16] MEDS: DEXAMETHASONE INJECTION 20 MG, DIPHENHYDRAMINE 50 MG in SODIUM CHLORIDE 100 ML IVPB ONE (11:15)
[2024-08-16] MEDS: ACETAMINOPHEN 325 MG TABLET (FP) PO ONE (11:16)
[2024-08-16] MEDS: IMMUN GLOB G(IGG)/PRO/IGA 0-50 200 ML, IMMUN GLOB G(IGG)/PRO/IGA 0-50 50 ML IVPB ONE (12:10)
[2024-08-16] MEDS: DARATUMUMAB-HYALURONIDASE-FIHJ (FASPRO) 15 ML VIAL SQ ONE (14:17)
[2024-08-16 15:37] VITALS: BP 139/70; PULSE 59; RESP 20; TEMP 98.8
[2024-08-18 18:08] LABS: FREE KAPPA,SERUM 6.3 mg/L (3.3-19.4)
[2024-08-18 19:08] LABS: IG A QN SERUM. 5 mg/dL (61-437)
[2024-08-19 16:08] LABS: BETA-2-MICROGLOBULIN 1.8 mg/L (0.6-2.4)
[2024-08-22 08:08] LABS: FREE KAP CHN UR 4.43 mg/L (1.17-86.46); KAPPA LAMBDA RATIO URIN 4.52 (1.83-14.26)
== END 2024-08-16 14:30 | disposition home or self-care (01) ==
LOC: J7W 10:23 → JONCCHEMO 10:23
PROVIDERS: ATTEND Internal Medicine Hematology & Oncology
PROC: 3E033GC Introduction of Other Therapeutic Substance into Peripheral Vein, Percutaneous Approach (ICD-10-PCS; principal; 2024-08-16)
DX: Z51.11 Encounter for antineoplastic chemotherapy (principal); C90.00 Multiple myeloma not having achieved remission
CPT/HCPCS: 36415; 80053; 82232; 82784; 83615; 83735; 83883; 84550; 85025; 86335; 96365; 96367; 96401; J1100; J1459; J9144

== ENCOUNTER 2024-10-10 09:49 | Day surgery (SDC) | payer OTHER, BC ==
[2024-10-10] MEDS: SODIUM CHLORIDE 250 ML IV ONE (10:30)
[2024-10-10 11:05] LABS: BASO % 0.8 % (0-2.0); EOS % 3.2 % (0-4.5); HEMATOCRIT 38.3 % (35.4-49); HEMOGLOBIN 13.4 GM/dL (11.7-16.9); MCH 34.2 pg (25.7-33.7); MEAN CELL VOLUME 97.7 fl (80-96); MEAN PLT VOLUME 7.9 fl (7.5-11.1); MONO % 14.4 % (3.8-10.2); NEUT % 70.6 % (42.8-82.8); PLATELET COUNT 133 10^3/uL (134-434); RBC 3.92 M/mm3 (4.00-5.60); RDW 14.7 % (11.9-15.9); WHITE BLOOD COUNT 3.9 K/mm3 (4.0-10.0)
[2024-10-10] MEDS: ACETAMINOPHEN 325 MG TABLET (FP) PO ONE (11:10)
[2024-10-10] MEDS: DEXAMETHASONE INJECTION 20 MG, DIPHENHYDRAMINE 50 MG in SODIUM CHLORIDE 100 ML IVPB ONE (11:11)
[2024-10-10 11:19] LABS: CHLORIDE 105 mmol/L (98-107); SODIUM 139 mmol/L (136-145)
[2024-10-10 11:21] LABS: ALBUMIN 3.9 g/dl (3.4-5.0); ANION GAP 4 mmol/L (4-13); BLOOD UREA NITROGEN 19.2 mg/dL (7-18); CALCIUM 8.6 mg/dL (8.5-10.1); CO2 30 mmol/L (21-32); MAGNESIUM 2.1 mg/dL (1.8-2.4)
[2024-10-10 11:22] LABS: GLUCOSE,RANDOM 108 mg/dL (74-106)
[2024-10-10 11:24] LABS: SGPT/ALT 20 U/L (13-61)
[2024-10-10 11:25] LABS: CREATININE 1.1 mg/dL (0.55-1.3); SGOT/AST 17 U/L (15-37)
[2024-10-10 11:26] LABS: BILIRUBIN,TOTAL 0.7 mg/dL (0.2-1); TOT PROT 6.2 g/dl (6.4-8.2)
[2024-10-10 11:27] LABS: ALK PHOS 52 U/L (45-117); CHOLESTEROL 127 mg/dL (50-200)
[2024-10-10 11:29] LABS: LDL CHOLESTEROL (ONLY SJRH) 56 mg/dL (5-100)
[2024-10-10 11:32] LABS: HDL CHOLESTEROL 55 mg/dL (40-60)
[2024-10-10 11:49] LABS: LDH 168 U/L (87-246)
[2024-10-10] MEDS: IMMUN GLOB G(IGG)/PRO/IGA 0-50 200 ML, IMMUN GLOB G(IGG)/PRO/IGA 0-50 50 ML IVPB ONE (11:50)
[2024-10-10] MEDS: DARATUMUMAB-HYALURONIDASE-FIHJ (FASPRO) 15 ML VIAL SQ ONE (13:56)
[2024-10-10 16:39] VITALS: BP 147/78; PULSE 70; RESP 20; TEMP 98.1
[2024-10-11 16:06] LABS: IG A QN SERUM. 7 mg/dL (61-437)
[2024-10-11 18:07] LABS: FREE KAPPA,SERUM 8.7 mg/L (3.3-19.4)
[2024-10-12 04:06] LABS: FREE KAP CHN UR 3.94 mg/L (1.17-86.46); KAPPA LAMBDA RATIO URIN 2.36 (1.83-14.26)
== END 2024-10-10 14:15 | disposition home or self-care (01) ==
LOC: JONCCHEMO 09:49 → J7W 09:50 → JONCCHEMO 14:15
PROVIDERS: ATTEND Internal Medicine Hematology & Oncology
PROC: 3E03305 Introduction of Other Antineoplastic into Peripheral Vein, Percutaneous Approach (ICD-10-PCS; principal; 2024-10-10)
PROC: 3E0333Z Introduction of Anti-inflammatory into Peripheral Vein, Percutaneous Approach (ICD-10-PCS; 2024-10-10)
PROC: [UNRECOGNIZED PROCEDURE] (2024-10-10)
DX: Z51.11 Encounter for antineoplastic chemotherapy (principal); C90.00 Multiple myeloma not having achieved remission
CPT/HCPCS: 36415; 80053; 80061; 82232; 82784; 83036; 83615; 83735; 83883; 84550; 85025; 86335; 96365; 96366; 96367; 96401; J1100; J1459; J9144

== ENCOUNTER 2025-02-27 09:30 | Day surgery (SDC) | payer OTHER, BC ==
[2025-02-27 10:36] LABS: ABSOLUTE IMMATURE GRANULOCYTES 0.01 x10^3/uL (0.0-0.031); BASOPHILS # 0.03 x10^3/uL (0.01-0.08); EOSINOPHIL % 5.0 % (0.8-7.0); EOSINOPHILS # 0.23 x10^3/uL (0.04-0.54); MCHC 32.7 g/dl (32.3-36.5); MEAN CELL VOLUME 100.5 fl (79.0-92.2); MEAN PLT VOLUME 9.6 fl (9.4-12.4); MONOCYTE # 0.65 x10^3/uL (0.30-0.82); MONOCYTE % 14.0 % (5.3-12.2); RDW 13.5 % (12.6-16.6)
[2025-02-27] MEDS: ACETAMINOPHEN 325 MG TABLET (FP) PO ONE (10:55)
[2025-02-27] MEDS: SODIUM CHLORIDE 250 ML IV ONE (10:56)
[2025-02-27] MEDS: IMMUN GLOB G(IGG)/PRO/IGA 0-50 200 ML, IMMUN GLOB G(IGG)/PRO/IGA 0-50 50 ML IVPB ONE (10:57)
[2025-02-27 11:10] LABS: CO2 32 mmol/L (21-32); GLUCOSE,RANDOM 122 mg/dL (74-106)
[2025-02-27 11:11] LABS: CREATININE 1.1 mg/dL (0.55-1.3); SGPT/ALT 24 U/L (13-61)
[2025-02-27 11:12] LABS: LDH 200 U/L (87-246); SGOT/AST 17 U/L (15-37)
[2025-02-27 11:14] LABS: ALK PHOS 54 U/L (45-117)
[2025-02-27 11:16] LABS: TOT PROT 6.4 g/dl (6.4-8.2)
[2025-02-27] MEDS: DEXAMETHASONE INJECTION 20 MG, DIPHENHYDRAMINE 50 MG in SODIUM CHLORIDE 100 ML IVPB ONE (13:00)
[2025-02-27] MEDS: DARATUMUMAB-HYALURONIDASE-FIHJ (FASPRO) 15 ML VIAL SQ ONE (13:42)
[2025-02-27 16:22] VITALS: BP 141/69; PULSE 65; RESP 20; TEMP 98.1
[2025-02-28 19:06] LABS: FREE KAPPA,SERUM 6.7 mg/L (3.3-19.4)
[2025-03-01 19:06] LABS: IG A QN SERUM. 7 mg/dL (61-437)
[2025-03-02 06:07] LABS: FREE KAP CHN UR 5.74 mg/L (1.17-86.46); KAPPA LAMBDA RATIO URIN 6.67 (1.83-14.26)
== END 2025-02-27 14:25 | disposition home or self-care (01) ==
LOC: JONCCHEMO 09:30
PROVIDERS: ATTEND Internal Medicine Hematology & Oncology
PROC: 3E033GC Introduction of Other Therapeutic Substance into Peripheral Vein, Percutaneous Approach (ICD-10-PCS; principal; 2025-02-27)
DX: Z51.11 Encounter for antineoplastic chemotherapy (principal); C90.00 Multiple myeloma not having achieved remission
CPT/HCPCS: 36415; 80053; 82232; 82784; 83615; 83735; 83883; 84550; 85025; 86335; J1100; J1459; J9144

== ENCOUNTER 2025-04-24 09:46 | Day surgery (SDC) | payer OTHER, BC ==
[~2025-04-24 09:46] MED LIST changes: +DEXAMETHASONE INJECTION 20 MG, DIPHENHYDRAMINE 50 MG in SODIUM CHLORIDE 100 ML IVPB ONE; -DEXAMETHASONE SODIUM PHOSPHATE 20 MG, DIPHENHYDRAMINE 50 MG in SODIUM CHLORIDE 100 ML IVPB ONE
[2025-04-24] MEDS: SODIUM CHLORIDE 250 ML IV ONE (10:52)
[2025-04-24 11:03] LABS: ABSOLUTE IMMATURE GRANULOCYTES 0.00 x10^3/uL (0.0-0.031); BASOPHILS # 0.03 x10^3/uL (0.01-0.08); EOSINOPHIL % 3.0 % (0.8-7.0); EOSINOPHILS # 0.13 x10^3/uL (0.04-0.54); MCHC 32.6 g/dl (32.3-36.5); MEAN CELL VOLUME 100.7 fl (79.0-92.2); MEAN PLT VOLUME 9.8 fl (9.4-12.4); MONOCYTE # 0.55 x10^3/uL (0.30-0.82); MONOCYTE % 12.7 % (5.3-12.2); RDW 13.2 % (12.6-16.6)
[2025-04-24 11:28] LABS: GLUCOSE,RANDOM 108 mg/dL (74-106)
[2025-04-24 11:29] LABS: CO2 27 mmol/L (21-32); TOT PROT 6.5 g/dl (6.4-8.2)
[2025-04-24 11:31] LABS: ALK PHOS 48 U/L (40-150)
[2025-04-24 11:33] LABS: LDH 172 U/L (87-246)
[2025-04-24 11:34] LABS: CREATININE 0.96 mg/dL (0.55-1.3); SGOT/AST 22 U/L (5-34); SGPT/ALT 17 U/L (0-55)
[2025-04-24] MEDS: DEXAMETHASONE INJECTION 20 MG, DIPHENHYDRAMINE 50 MG in SODIUM CHLORIDE 100 ML IVPB ONE (11:49)
[2025-04-24] MEDS: ACETAMINOPHEN 325 MG TABLET (FP) PO ONE (11:50)
[2025-04-24] MEDS: IMMUN GLOB G(IGG)/PRO/IGA 0-50 200 ML, IMMUN GLOB G(IGG)/PRO/IGA 0-50 50 ML IVPB ONE (12:22)
[2025-04-24] MEDS: DARATUMUMAB-HYALURONIDASE-FIHJ (FASPRO) 15 ML VIAL SQ ONE (14:05)
[2025-04-24 14:50] VITALS: RESP 18; TEMP 98
[2025-04-24 15:04] VITALS: BP 141/70; PULSE 68
[2025-04-25 19:07] LABS: FREE KAPPA,SERUM 5.7 mg/L (3.3-19.4)
[2025-04-27 06:06] LABS: FREE KAP CHN UR 3.63 mg/L (1.17-86.46); KAPPA LAMBDA RATIO URIN 4.37 (1.83-14.26)
[2025-04-30 20:07] LABS: IG A QN SERUM. 7 mg/dL (61-437)
== END 2025-04-24 14:30 | disposition home or self-care (01) ==
LOC: JONCCHEMO 09:46 → J7W 09:47 → JONCCHEMO 14:30
PROVIDERS: ATTEND Internal Medicine Hematology & Oncology
PROC: 3E033GC Introduction of Other Therapeutic Substance into Peripheral Vein, Percutaneous Approach (ICD-10-PCS; principal; 2025-04-24)
PROC: 3E01305 Introduction of Other Antineoplastic into Subcutaneous Tissue, Percutaneous Approach (ICD-10-PCS; 2025-04-24)
DX: Z51.11 Encounter for antineoplastic chemotherapy (principal); D80.1 Nonfamilial hypogammaglobulinemia; C90.00 Multiple myeloma not having achieved remission
CPT/HCPCS: 36415; 80053; 82232; 82784; 83615; 83735; 83883; 84550; 85025; 86335; 96365; 96367; 96401; J1100; J1459; J9144